=== PATIENT | female | born 1950 | race Asian ===

== ENCOUNTER 2016-12-05 22:10 | Inpatient (IN) | payer OTHER, MEDICARE ==
[~2016-12-05] VITALS: Ht 160 cm; Wt 45.8 kg
[2016-12-05 22:10] VITALS: BP 126/52; PULSE 124; RESP 26; TEMP 97.7; O2SAT 82
--- NOTE | 2016-12-05 22:10 | NUR ---
Patient to ER bed 8 to gown for evaluation. Side rails up. Report given to Kasie PINEDO.
--- NOTE | 2016-12-05 22:11 | NUR ---
Pt. to ER brought in by EMS AA non verbal for respitory distress. as per EMS pt. has a Hx of cancer, felt weak since this evening. Family at bedside, states that pt. was doing alright before 1999, states that pt. was walking and verbal, on pure liquid diet, as per errol pt. became very weak, refusing to eat, drink or talk, acted very abnormal, "out of the ordinary" unwilling to participate in conversations so daughter called 911, on timber killer family at bedside
--- NOTE | 2016-12-05 22:15 | NUR ---
DR. ELIZABETH AT BEDSIDE EXAMINING THE PT.
[2016-12-05] MEDS ORDERED: NACL 0.9% 1,000 ML IV SCH (22:17)
[2016-12-05] MEDS ORDERED: LEVOFLOXACIN 500 MG/D5W 100 ML IV ONE (22:30)
--- NOTE | 2016-12-05 22:32 | NUR ---
X RAY AT BEDSIDE
--- NOTE | 2016-12-05 22:53 | NUR ---
# 20 gauge angiocath placed to la. Use of asceptic technique. Opsite placed over site. Blood return noted. Blood for lab drawn from site. Flushed with 10 cc of normal saline. No evidence of infiltration noted. Patient tolerated well.
[2016-12-05 23:33] LABS: PROTHROMBIN TIME 10.9 SECS (9.5-12.5)
--- NOTE | 2016-12-05 23:35 | NUR ---
Medication reconciliation - per family "no home meds"
[2016-12-05 23:46] LABS: CALCIUM 8.5 mg/dL (8.4-11.0); CREATININE 1.5 mg/dL (0.55-1.30); POTASSIUM 3.9 mmol/L (3.5-5.1)
[2016-12-05 23:48] LABS: MEAN CORPUSCULAR HEMOGLOBIN 25 pg (27-31); MEAN CORPUSCULAR HGB CONC 29 % (32-36); MEAN CORPUSCULAR VOLUME 88 fL (79.0-98.0); PLATELET COUNT (AUTO) 412 K/uL (130-430); RED BLOOD CELL COUNT(AUTO) 1.92 MIL/uL (4.2-6.2); RED CELL DISTRIBUTION WIDTH 21.9 % (9.0-15.0)
[2016-12-05 23:49] LABS: HEMOGLOBIN 4.8 g/dL (12.0-16.0)
[2016-12-05 23:50] LABS: HEMATOCRIT 16.9 % (36-48); WHITE BLOOD COUNT (AUTO) 29.5 K/uL (4.8-10.8)
[2016-12-05 23:51] LABS: ALBUMIN 2.6 g/dL (3.4-4.8); TOTAL BILIRUBIN 0.6 mg/dL (0.0-1.0); TOTAL PROTEIN, SERUM 5.9 g/dL (6.4-8.3)
[2016-12-06 01:10] LABS: ATYPICAL LYMPHOCYTES % 0 % (0-0); BAND % (MANUAL) 7 % (0-6); BASOPHILS % (MANUAL) 0 % (0-2); EOSINOPHILS % (MANUAL) 0 % (0-7); LYMPHOCYTES % (MANUAL) 16 % (20-46); METAMYELOCYTES % 4 % (0-0); MONOCYTES % (MANUAL) 2 % (0-11); MYELOCYTES % 2 % (0-0)
[2016-12-06] MEDS ORDERED: NACL 0.9% 1,000 ML IV SCH (01:15)
--- NOTE | 2016-12-06 01:15 | NUR ---
PT FAMILY MEMBER AGREED FOR DNR STATUS AND BEEN EXPLAINED BY DR ELIZABETH AND SIGNED AND WITNESSED BY 1 NURSE.
--- NOTE | 2016-12-06 01:20 | NUR ---
Patient will be admitted to care of DR CALIX. Admitted to TELEMETRY unit. Will go to room 113-B. Belongings list completed. Summary report printed. Report given to ANA ROSA Mandujano RN .
--- NOTE | 2016-12-06 01:25 | NUR ---
INFORMED ANA ROSA Mandujano RN TO INFORM DR CALIX TO CHANGE DIET TO FULL LIQUID THAT THE PT UNABLE TO SWALLOW SOLID FOOD.
--- NOTE | 2016-12-06 01:28 | NUR ---
ADMISSION NOTE Received patient from ER via luke, received report from eusebia PINEDO. Patient admitted with diagnosis of sepsis. Patient oriented to hospital routine, call light, toileting and safety-patient verbalized understanding.
--- NOTE | 2016-12-06 01:30 | NUR ---
INITIAL NOTES: PT IS AWAKE , ARABIC SPEAKING ; ON O2 6 L VIA OXYMIZER , SAT 93%; BP IS ON THE LOW SIDE ; PER REPORT MD IS AWARE ABOUT THE LACTIC ACID LEVEL AND WBC ; H/H IS LOW , WILL TRANSFUSE BLOOD ORDERED ; PT DENIED ANY PAIN ; ASSESSMENT DONE . Addendum: 12/06/16 at 0700 by Sujata Hatfield RN PT IS LETHARGIC, PALE .
[2016-12-06 01:39] VITALS: BP 94/48; PULSE 108; RESP 18; TEMP 97.7; O2SAT 93
--- NOTE | 2016-12-06 01:50 | NUR ---
BM : PT IS INCONTINENT WITH LOOSE BM WITH BLOOD ;PERICARE GIVEN ; LINEN AND RAJI CHANGED .
--- NOTE | 2016-12-06 02:10 | NUR ---
ROOM : PT MOVED TO ROOM 113 B ; PT IS INCONTINENT WITH LOOSE BM ; SPECIMEN COLLECTED FOR C DIFF PER PROTOCOL ; PT CLEANED ; LINEN GOWN AND RAJI CHANGED; PT IS ST ON THE TELEMONITOR; FAMILY AT BEDSIDE ; DNR IS SIGNED BY ER DOCTOR ; INFORMED PT AND FAMILY THE PLAN OF CARE .PTS RESPIRATION IS 24- 28 AT THIS TIME ; SAT 94% .
--- NOTE | 2016-12-06 02:40 | NUR ---
BLOOD : PER BLOOD BANK , BLOOD TRANSFUSION REQUEST FORM DIDNT RECEIVE FROM ER ; FORM COMPLETED AND SENT TO LAB
[2016-12-06 02:56] LABS: BLOOD GAS PH 7.151 (7.350-7.450)
[2016-12-06 03:00] LABS: ABG TOTAL HEMOGLOBIN 4.6 G/dL (12.0-18.0); BLOOD O2Hb% 95.7 % (94.0-97.0)
[2016-12-06] MEDS ORDERED: VANCOMYCIN HCL 1000 MG/VIAL IV ONE (03:00)
[2016-12-06] MEDS ORDERED: VANCOMYCIN HCL 750 MG in NS 250 ML IV ONE (03:00)
[2016-12-06 03:01] LABS: BLOOD GAS COHb% 1.6 % (0.5-1.5); BLOOD GAS HHB 0.6 % (0.0-6.0)
--- NOTE | 2016-12-06 03:50 | NUR ---
BLOOD TRANSFUSION : Consent signed by daughter to administration of blood. Blood has been type and crossmatched. Blood sent from blood bank. Information on unit of blood checked against patient wristband at bedside by two nurses. All information matches. Patient or responsible green party informed of potential complications associated with blood transfusion. Informed of possible transfusion reaction symptoms. Aware of need to notify nurse at once of itching, shortness of breath, flushing, feeling of impending doom, or other symptoms not previously present. Vital signs taken within 5 minutes prior to initiation of transfusion. RN will remain with patient for first 15 minutes of transfusion at which time vital signs will be re-assessed.
--- NOTE | 2016-12-06 04:05 | NUR ---
15 MIN AFTER : NO S/S OF ANY ADVERSE OR TRANSFUSION REACTION ; PT IS HAVING ANOTHER LOOSE BM WITH OLD BLOOD ; PT CLEANED LINEN RAJI , AND GOWN CHANGED ; PER Francisco BRUNNER FLEXISEAL INSERTED AND WILL CALL MD IN AM TO GET THE ORDER . ALSO PT IS A MOUTH BREATHER SO SHE IS DESATING TO 80S WHILE SHE IS SLEEPING ; CHANGED PT BACK TO NON REBREATHER MASK - SAT 100% ;WILL CONTINUE TO MONITOR. Addendum: 12/06/16 at 0444 by Sujata Hatfield RN CHECKED FLEXISEAL BULB TO MAKE SURE NO LEAKING , AFTER THAT APPLIED LUBRICANT AND INSERTED INTO THE RECTUM ; THEM INSERTED 45 CC OF NS ; BULB IS IN POSITION ; NO LEAKING NOTED AT THIS TIME. WILL CONTINUE TO MONITOR.
[2016-12-06 04:29] VITALS: BP 90/53; PULSE 71; RESP 20; TEMP 96.9; O2SAT 100
--- NOTE | 2016-12-06 04:44 | NUR ---
RN ROUNDS: FAMILY AT BEDSIDE , PT IS SLEEPING COMFORTABLY ; SINCE PTS BP AND H/H IS LOW TRANSFUSION RUNNING AT 150 CC/HR . WILL CONTINUE TO MONITOR.
--- NOTE | 2016-12-06 06:00 | NUR ---
1 ST UNIT BLOOD OVER : BLOOD 1 ST UNIT IS OVER , NO ALLERGIC OR TRANSFUSION REACTION NOTED .PT IS MORE COMFORTABLE .WILL CONTINUE TO MONITOR.
--- NOTE | 2016-12-06 06:20 | NUR ---
BLOOD TRANSFUSION 2ND UNIT : Consent signed by daughter , Blood has been type and crossmatched. Blood received from blood bank. Information on unit of blood checked against patient wristband at bedside by two nurses. All information matches. Patient or responsible alliance party informed of potential complications associated with blood transfusion. Informed of possible transfusion reaction symptoms. Aware of need to notify nurse at once of itching, shortness of breath, flushing, feeling of impending doom, or other symptoms not previously present. Vital signs taken within 5 minutes prior to initiation of transfusion. RN will remain with patient for first 15 minutes of transfusion at which time vital signs will be re-assessed.
--- NOTE | 2016-12-06 06:35 | NUR ---
15 MIN AFTER : NO S/S OF ANY ADVERSE OR TRANSFUSION REACTION NOTED ;NOTICED THAT FLEXISEAL IS LEAKING ;AND INCONTINENT WITH URINE TOO ; PT CLEANED ; LINEN AND GOWN CHANGED .WILL CONTINUE TO MONITOR.
[2016-12-06] MEDS ORDERED: [UNRECOGNIZED DRUG - REMARK] XX PRN (06:45)
--- NOTE | 2016-12-06 06:45 | NUR ---
CALLED BACK : DR CALIX CALLED BACK , INFORMED MD THAT PT IS HAVING LOOSE BM WITH BLOOD , EARLIER WAS DARK BUT NOW ITS MORE FRESH ; MD ORDERED TO DC ALL ANTICOAGULANTS;INFORMED MD THAT PT IS NOT ON ANY ANTICOAGULANTS .MD ORDERED DR HOLBROOK CONSULT,DR GARCÍA CONSULT , AND SHARDAAL
--- NOTE | 2016-12-06 07:06 | NUR ---
CLOSING NOTES: PT IS SLEEPING ON AND OFF; FLEXISEAL IS DRAINING STOOL WITH RED BLOOD ; ON O2 VIA NONREBREATHER MASK - SAT 100% AT THIS TIME TELE MONITOR RUNNING ST ; DAUGHTER AT BEDSIDE ;WILL CONTINUE TO MONITOR AND WILL ENDORSE TO NEXT SHIFT NURSE.
--- NOTE | 2016-12-06 07:20 | NUR ---
AM Rounds: Received pt sitting semi-fowlers in bed. No acute signs of distress noted. IV intact to LUE infusing blood at this time and intact to RUE infusing IV fluids. Pt is lethargic but easily arousable. Tachypnea noted, saturating well 99% on non-rebreather. Changed non-rebreather to oximizer at 6L/min, continued to saturating well 99%. Flexiseal in place, draining liquid, red stool. No other needs noted at this time. Daughter at bedside. Call light in reach. Fall precautions in place. Bed alarm on. Bed in lowest position. Pt does not attempt to get out of bed at this time. Family educated on need to call for assist prior to ambulating as she is very weak. No other needs noted at this time. Continue to monitor pt closely.
--- NOTE | 2016-12-06 07:57 | NUR ---
CONSULTS CONSULT #1: PULMONARY CONSULT Spoke with Ciara regarding request for consultation with Dr. Byrne ([phone]) for reason: low O2 saturations - GI bleed. Dr. Vu is currently on-call. CONSULT #2: GI CONSULT Spoke with Ciara regarding request for consultation with Dr. Frankel ([phone]) for reason: GI bleed. Dr. Reid is currently on-call.
[2016-12-06 08:30] VITALS: BP 103/51; PULSE 122; RESP 26; TEMP 96.8; O2SAT 99
[2016-12-06] MEDS ORDERED: MAGNESIUM SULFATE 50 ML IV PRN (09:15)
[2016-12-06] MEDS ORDERED: ONDANSETRON HCL 4 MG/2 ML VIAL IVP PRN (09:15)
[2016-12-06] MEDS ORDERED: PANTOPRAZOLE SODIUM 40 MG/VIAL (PROTONIX) IVP ONE (09:15)
[2016-12-06] MEDS ORDERED: ACETAMINOPHEN 325 MG TABLET PO PRN (09:15)
[2016-12-06] MEDS ORDERED: POTASSIUM CHLORIDE 10 MEQ TAB.PRT.SR PO PRN (09:15)
[2016-12-06] MEDS ORDERED: MORPHINE 2 MG/ML INJ. SYRINGE IVP PRN (09:15)
[2016-12-06] MEDS ORDERED: DOCUSATE SODIUM 100 MG CAPSULE PO PRN (09:15)
[2016-12-06] MEDS ORDERED: LORazepam 2 MG/ML VIAL IVP PRN (09:15)
[2016-12-06] MEDS: D5NS 1,000 ML IV SCH (09:26)
--- NOTE | 2016-12-06 09:27 | NUR ---
ID CONSULT Spoke with Emily regarding request for consultation with Dr. Gramajo ([phone]) for reason: sepsis.
--- NOTE | 2016-12-06 09:30 | NUR ---
RN Rounds: AM meds given per MD order. Pt tolerates well. Dr. Lockhart here to see patient, aware that she is SOB and that blood is infusing at this time. New orders noted. Dr. Bains here to see patient as well. Family at bedside. Call light in reach. Bed alarm on. Continue to monitor pt closely.
[2016-12-06 11:01] LABS: CREATININE 1.81 mg/dL (0.55-1.30); POTASSIUM 4.4 mmol/L (3.5-5.1)
[2016-12-06 11:06] LABS: ALBUMIN 1.9 g/dL (3.4-4.8); TOTAL BILIRUBIN 0.5 mg/dL (0.0-1.0); TOTAL PROTEIN, SERUM 4.1 g/dL (6.4-8.3)
[2016-12-06 11:10] LABS: HEMOGLOBIN 8.1 g/dL (12.0-16.0); MEAN CORPUSCULAR HEMOGLOBIN 29 pg (27-31); MEAN CORPUSCULAR HGB CONC 34 % (32-36); PLATELET COUNT (AUTO) 161 K/uL (130-430); RED CELL DISTRIBUTION WIDTH 16.4 % (9.0-15.0)
[2016-12-06 11:15] LABS: CALCIUM 6.6 mg/dL (8.4-11.0); MEAN CORPUSCULAR VOLUME 86 fL (79.0-98.0); WHITE BLOOD COUNT (AUTO) 33.6 K/uL (4.8-10.8)
--- NOTE | 2016-12-06 11:30 | NUR ---
Page MDs: Page Pito Porter and Nara for orders. Awaiting page back at this time. Pt cleaned and repositioned in bed. Call light in reach. Patient changed to 2L via NC. Pt tolerates well at this time 100% O2 sat. Continue to monitor.
[2016-12-06] MEDS: PIPERACILLIN/TAZO 2.25G/DEX-IS 50 ML IV SCH ×3 (12:00→23:44)
[2016-12-06 12:17] LABS: BAND % (MANUAL) 14 % (0-6); BASOPHILS % (MANUAL) 0 % (0-2); EOSINOPHILS % (MANUAL) 0 % (0-7); LYMPHOCYTES % (MANUAL) 4 % (20-46); MONOCYTES % (MANUAL) 1 % (0-11)
[2016-12-06 12:18] VITALS: BP 111/69; PULSE 85; RESP 16; TEMP 98.2; O2SAT 100
--- NOTE | 2016-12-06 12:59 | NUR ---
Second Page Dr. Sheldon: Second page Dr. Sheldon for critical value WBC. Awaiting page back at this time
--- NOTE | 2016-12-06 13:40 | NUR ---
Rounds: Pt resting comfortably in bed. No acute signs of distress noted. Call light in reach. No acute signs of respiratory distress noted. IV intact and infusing fluids well. Pt denies pain and remains arousable to name. Continue to monitor.
--- NOTE | 2016-12-06 13:41 | NUR ---
DC PLANNING: SPOKE W/ BONIFACIO- OF THE PATIENT AT BEDSIDE, HE IS REQUESTING PATIENT TO BE UNDER HOSPICE CARE, WHERE PATIENT WILL BE COMFORTABLE. HE DOES NOT WANT ANY INVASIVE PROCEDURES TO BE DONE TO HIS . ACCORDING TO HIM, HIS WANTS TO GO HOME. CALLED AND INFORMED DR. Kylee CALIX, HE ORDERED HOSPICE EVAL--[facility] TEL# [phone]. CALLED AND LEFT A VOICE MAIL MESSAGE TO YADI. Addendum: 12/06/16 at 1544 by Deann White RN [facility] CALLED, THEY WILL DO THE EVALUATION TOMORROW.
[2016-12-06 13:58] LABS: BILIRUBIN,URINE NEGATIVE (NEGATIVE); BLOOD, URINE 2+ (NEGATIVE); CLARITY/URINE CLOUDY (CLEAR); COLOR,URINE YELLOW (YELLOW); GLUCOSE,URINE TRACE (NEGATIVE); KETONES,URINE 1+ (NEGATIVE); LEUKOCYTE ESTERASE ,URINE NEGATIVE (NEGATIVE); NITRITE, URINE NEGATIVE (NEGATIVE); PH,URINE 5.5 (5.0-8.0); PROTEIN URINE 2+ (NEGATIVE); UROBILINOGEN,URINE 0.2 (0.2-1.0)
[2016-12-06 14:03] LABS: BACTERIA,URINE MANY /HPF (None Seen); MUCUS,URINE 1+ /LPF (None Seen)
--- NOTE | 2016-12-06 15:40 | NUR ---
Rounds: Pt sitting semi-fowlers in bed and sleeping. No acute signs of distress noted. IV intact to RUE and flushing well. Breathing even and unlabored on 2L via NC. Call light in reach. Bed alarm on, bed in lowest position. Continue to monitor.
--- NOTE | 2016-12-06 16:10 | NUR ---
Nutrition Update Dylan Scale 14 noted Pt was admitted for sepsis Diet: clear liquid, no red dye BMI: 17.9 kg/m2 RD to follow up per nutrition care standards.
[2016-12-06 16:18] VITALS: BP 115/68; PULSE 79; RESP 16; TEMP 98.9; O2SAT 100
--- NOTE | 2016-12-06 17:11 | NUR ---
Rounds: Pt sleeping in bed and breathing even and unlabored on 2L via NC. No acute signs of distress noted. Call light in reach. Continue to monitor pt closely.
--- NOTE | 2016-12-06 19:04 | NUR ---
Closing Note: Pt sitting semi-fowlers in bed. No acute signs of distress noted. IV intact to RUE with no redness or swelling noted to site. Call light in reach. Pt is sleeping, breathing even and unlabored on 2L via NC. Call light in reach. Family at bedside. Flexiseal draining well to gravity. Endorse plan of care to NOC RN.
[2016-12-06 19:35] VITALS: BP 119/61; PULSE 78; RESP 18; TEMP 98.7; O2SAT 100
--- NOTE | 2016-12-06 19:35 | NUR ---
Initial Notes Pt is A/Ox3, lethargic but easily arousable. Family is at beside. POC discussed with who verbalized understanding. No acute distress or sob noted, breathing is even and unlabored, with respirations at 18. VSS. Flexi seal in place, with dk red blood noted in collection bag. Pt is bedrest, pt re positioned with pillows for comfort. IV to left wrist and RFA #20g noted, and infusing well with D5NS@70ml/hr. Pt is on 2L N/C with O2 saturation at 99%. Safety precautions in place, side rails up x3, with bed in lowest, locked position, bed alarm on at all times, pt and family educated environmental air specialist light. All needs met at this time. Call light within reach. Will continue to monitor.
[2016-12-06] MEDS ORDERED: ZOLPIDEM TARTRATE 5 MG TABLET PO PRN (21:00)
[2016-12-06] MEDS ORDERED: VANCOMYCIN HCL 500 MG in NS 100 ML IV SCH (21:00)
--- NOTE | 2016-12-06 22:30 | NUR ---
Rounds Pt is sleeping with no acute distress or sob noted. Family remains with pt. Will continue to monitor. Call light in reach.
[2016-12-07 00:04] VITALS: BP 100/45; PULSE 79; RESP 17; TEMP 97; O2SAT 99
--- NOTE | 2016-12-07 01:29 | NUR ---
Rounds Pt is sleeping well at this time with no acute distress or sob noted. Breathing is even and unlabored, respirations at 18. IV fluids infusing well. remains with pt at bedside. All needs met at this time. Call light in hand. Will continue to monitor.
[2016-12-07] MEDS: D5NS 1,000 ML IV SCH ×2 (01:31→14:17)
--- NOTE | 2016-12-07 04:05 | NUR ---
Rounds Pt is resting comfortably in bed at this time. No acute distress or sob noted. remains with pt at bedside. Call light within reach. Will continue to monitor.
[2016-12-07 04:17] VITALS: BP 115/56; PULSE 71; RESP 18; TEMP 98.1; O2SAT 99
[2016-12-07] MEDS: PIPERACILLIN/TAZO 2.25G/DEX-IS 50 ML IV SCH ×4 (06:07→23:29)
--- NOTE | 2016-12-07 07:03 | NUR ---
Closing Notes Pt is sleeping comfortably in bed at this time. Family remains with pt at bedside. VSS. IV intact. All needs met throughout shift. Will endorse care to am nurse. Call light in hand.
--- NOTE | 2016-12-07 07:50 | NUR ---
AM Rounds: Pt laying flat in bed. No acute signs of distress noted. IV intact to LUE and RUE with no redness or swelling noted to site. No SOB or respiratory distress noted. Flexiseal in place with dark brown output noted. No acute signs of bleeding noted. Call light in reach. Bed alarm on. Side rails x3. Bed in lowest position. Family at bedside. Continue to monitor.
[2016-12-07 07:56] LABS: MEAN CORPUSCULAR HEMOGLOBIN 30 pg (27-31); MEAN CORPUSCULAR HGB CONC 34 % (32-36); MEAN CORPUSCULAR VOLUME 88 fL (79.0-98.0); PLATELET COUNT (AUTO) 140 K/uL (130-430); WHITE BLOOD COUNT (AUTO) 23.7 K/uL (4.8-10.8)
[2016-12-07 07:58] LABS: RED BLOOD CELL COUNT(AUTO) 1.83 MIL/uL (4.2-6.2)
--- NOTE | 2016-12-07 08:09 | NUR ---
CALLED [facility], RE: CRITICAL LABS. SPOKE TO CONI
[2016-12-07] MEDS: PANTOPRAZOLE SODIUM 40 MG/VIAL (PROTONIX) IVP SCH (08:23)
[2016-12-07 08:35] VITALS: BP 97/46; PULSE 69; RESP 16; TEMP 97.7; O2SAT 100
[2016-12-07 08:41] LABS: BASOPHILS % (MANUAL) 0 % (0-2); EOSINOPHILS % (MANUAL) 0 % (0-7); LYMPHOCYTES % (MANUAL) 5 % (20-46); MONOCYTES % (MANUAL) 3 % (0-11)
[2016-12-07 08:44] LABS: ALBUMIN 1.5 g/dL (3.4-4.8); CREATININE 1.92 mg/dL (0.55-1.30); POTASSIUM 3.1 mmol/L (3.5-5.1); TOTAL BILIRUBIN 0.3 mg/dL (0.0-1.0); TOTAL PROTEIN, SERUM 3.7 g/dL (6.4-8.3)
[2016-12-07 08:50] LABS: HEMOGLOBIN 5.4 g/dL (12.0-16.0)
--- NOTE | 2016-12-07 09:24 | NUR ---
RN Rounds: AM meds given per MD order. No acute sign of distress noted. Pt continued to be lethargic but easily arousable. Able to state name and birthday. at bedside. Call light in reach. Fall precautions in place. Bed alarm on and bed in lowest position. Pt's verbalizes understanding of need to call for assist prior to ambulating. Continue to monitor.
[2016-12-07] MEDS ORDERED: POTASSIUM CHLORIDE 20 MEQ/PKT PACKET PO PRN (09:30)
--- NOTE | 2016-12-07 11:40 | NUR ---
Rounds: Pt sitting semi-fowlers in bed. No acute signs of distress noted. IV intact and infusing fluids well at this time. Pt remains lethargic but is talking to family at this time. Dr. Reid here to see patient, new orders noted.
[2016-12-07 12:14] VITALS: BP 116/60; PULSE 68; RESP 16; TEMP 98.9; O2SAT 100
--- NOTE | 2016-12-07 13:03 | NUR ---
DC PLANNING: [facility] RN WILL BE HERE AT 1330 PM, PACKET AT THE NURSE'S STATION.
--- NOTE | 2016-12-07 13:20 | NUR ---
Rounds: Pt laying flat in bed, no acute signs of distress noted. Pt breathing even and unlabored on room air. Call light in reach. Family at bedside. Continue to monitor.
--- NOTE | 2016-12-07 15:33 | NUR ---
Rounds: Pt sitting semi-fowlers in bed. No acute signs of distress noted. Hospice at bedside to discuss plan of care with patient's family. Rectal tube in place. Pt cleaned and repositioned in bed. Call light in reach. Continue to monitor.
--- NOTE | 2016-12-07 16:09 | NUR ---
DC PLANNING Received call from unit that pt's family would like to discuss hospice vs home health. Spoke w dtr Nereida, manjula Robbins, & other dtr outside of pt's room. Stated spoke w [facility] & not decided yet on Hospice. Want more choices & want Hospice vs home health explained. Gave list of Hospice companies as well as list of home health companies. Explained the difference between the two. State that they have meeting to discuss plan w Dr Lockhart again tomorrow morning, then they will decide on which plan they decide. They do not want a 2nd Hospice company yet until speak w Dr Lockhart. Would like to speak w Director Hematology tomorrow. Left note for Director Hematology to f/u w family tomorrow.
[2016-12-07 16:51] VITALS: BP 104/54; PULSE 69; RESP 16; TEMP 98.2; O2SAT 100
--- NOTE | 2016-12-07 17:35 | NUR ---
BT INITIATION: Consent signed per agreeing to administration of blood. Blood has been type and crossmatched. Blood sent from blood bank. Information on unit of blood checked against patient wristband at bedside by two nurses. All information matches. Patient or responsible alliance party informed of potential complications associated with blood transfusion. Informed of possible transfusion reaction symptoms. Aware of need to notify nurse at once of itching, shortness of breath, flushing, feeling of impending doom, or other symptoms not previously present. Vital signs taken within 5 minutes prior to initiation of transfusion. RN will remain with patient for first 15 minutes of transfusion at which time vital signs will be re-assessed.
--- NOTE | 2016-12-07 17:50 | NUR ---
Blood Re-Check 15 min: Pt tolerates transfusion well. No acute signs of reaction noted. Continue to monitor.
--- NOTE | 2016-12-07 18:25 | NUR ---
Closing Note: Blood transfusion in progress. No acute signs of distress noted. Rectal tube in place draining dark green liquid stool. No acute signs of distress noted. Pt remains lethargic but arousable. Endorse plan of care to NOC RN.
[2016-12-07 19:40] VITALS: BP 97/54; PULSE 70; RESP 18; TEMP 97; O2SAT 99
--- NOTE | 2016-12-07 19:40 | NUR ---
Initial Notes Pt is A/Ox3, lethargic but easily arousable. Family is at beside. POC discussed with who verbalized understanding. No acute distress or sob noted, breathing is even and unlabored, with respirations at 18. VSS. Flexi seal in place, with dk red blood noted in collection bag. Pt is bedrest, pt re positioned with pillows for comfort. IV to left wrist and RFA #20g noted, and infusing well with D5NS@70ml/hr. 1 unit of blood currently infusing, will monitor. Safety precautions in place, side rails up x3, with bed in lowest, locked position, bed alarm on at all times, pt and family educated traditional maori health practitioner light. All needs met at this time. Call light within reach. Will continue to monitor.
--- NOTE | 2016-12-07 20:35 | NUR ---
1st unit of blood done First unit of blood transfused with no adverse reactions noted. Vital signs stable: Temp 96.8, Pulse 66, Respirations 18, B/P 95/48. All needs met at this time. Call light in reach. Will continue to monitor.
--- NOTE | 2016-12-07 22:05 | NUR ---
15 Minutes post BT initiation Remained with pt for 15 minutes, vital signs stable: temp 97.0, Pulse 65, RR 18, O2 saturation 100% on room air, Blood pressure 103/49. No acute distress or s/s of adverse reactions noted. remains with pt at bedside. BT infusing well with no s/s of infiltration. Call light in reach. Will continue to monitor.
[2016-12-08] VITALS: BP 96/52; PULSE 78; RESP 17; TEMP 98.2; O2SAT 99
--- NOTE | 2016-12-08 00:47 | NUR ---
Second unit of blood complete Second unit of blood infused at this time with no adverse reactions noted. Pt is sleeping, easily arousable. at bedside. VSS. IV intact. Call light in reach. Will continue to monitor.
--- NOTE | 2016-12-08 02:30 | NUR ---
Rounds Pt is sleeping comfortably in bed. No acute distress or sob noted. remains with pt at bedside. All needs met. Call light in hand. Will continue to monitor.
[2016-12-08 04:25] VITALS: BP 98/58; PULSE 72; RESP 16; TEMP 98.3; O2SAT 99
[2016-12-08] MEDS: D5NS 1,000 ML IV SCH ×2 (05:15→10:32)
[2016-12-08] MEDS: PIPERACILLIN/TAZO 2.25G/DEX-IS 50 ML IV SCH ×3 (05:16→18:31)
[2016-12-08 07:40] LABS: BASOPHILS % (AUTO) 0.1 % (0.0-2.0); EOSINOPHILS % (AUTO) 0.2 % (0.0-4.0); LYMPHOCYTES # (AUTO) 0.6 K/uL (1.0-5.5); LYMPHOCYTES % (AUTO) 3.5 % (20.5-51.5); MEAN CORPUSCULAR HEMOGLOBIN 29 pg (27-31); MEAN CORPUSCULAR HGB CONC 33 % (32-36); MEAN CORPUSCULAR VOLUME 86 fL (79.0-98.0); MONOCYTES # (AUTO) 0.9 K/uL (0.0-1.0); MONOCYTES % (AUTO) 4.9 % (1.7-9.3); NEUTROPHILS # (AUTO) 16.2 K/uL (1.8-7.7); NEUTROPHILS % (AUTO) 91.3 % (40.0-70.0); PLATELET COUNT (AUTO) 100 K/uL (130-430); RED BLOOD CELL COUNT(AUTO) 3.15 MIL/uL (4.2-6.2); RED CELL DISTRIBUTION WIDTH 14.2 % (9.0-15.0)
[2016-12-08 07:46] LABS: WHITE BLOOD COUNT (AUTO) 17.7 K/uL (4.8-10.8)
--- NOTE | 2016-12-08 07:47 | NUR ---
AM ROUNDS Pt sleeping...Easily wakes with verbal stimuli...IVF infusing well to RFA...HL to LW flushes well...Flexi-seal in place with blackish-brownish output... at bedside assisting pt with needs...Call light/phone w/in reach...Will cont to monitor
[2016-12-08 07:49] LABS: ALBUMIN 1.6 g/dL (3.4-4.8); CREATININE 1.46 mg/dL (0.55-1.30); POTASSIUM 3.2 mmol/L (3.5-5.1); TOTAL BILIRUBIN 0.3 mg/dL (0.0-1.0); TOTAL PROTEIN, SERUM 4.1 g/dL (6.4-8.3)
[2016-12-08 08:06] LABS: CALCIUM 6.9 mg/dL (8.4-11.0)
[2016-12-08] MEDS: PANTOPRAZOLE SODIUM 40 MG/VIAL (PROTONIX) IVP SCH (08:23)
[2016-12-08] MEDS ORDERED: POTASSIUM CHLORIDE 40 MEQ, LIDOCAINE JECT 2% PF 100 MG 50 MG in NS 250 ML IV ONE (09:00)
[2016-12-08 09:02] VITALS: BP 116/58; PULSE 60; RESP 18; TEMP 98.4; O2SAT 97
--- NOTE | 2016-12-08 11:00 | NUR ---
ROUNDS PT STABLE..NO CHANGES...FAMILY AT BEDSIDE..WILL CONT TO MONITOR
--- NOTE | 2016-12-08 11:15 | NUR ---
CHIARA-CARE DONE PT INCONTINENT OF URINE...PT CLEANED, FLEXI-SEAL CLEANED...CHIARA-CARE DONE...PT TOLERATED WELL....WILL CONT TO MONITOR
[2016-12-08 12:33] VITALS: BP 108/63; PULSE 64; RESP 17; TEMP 97.1; O2SAT 98
--- NOTE | 2016-12-08 14:00 | NUR ---
INCONTINENT OF URINE CHIARA-CARE DONE...MOISTURE BARRIER CREAM APPLIED...WILL CONT TO MONITOR
[2016-12-08 14:20] VITALS: Ht 160 cm; Wt 45.8 kg
--- NOTE | 2016-12-08 15:37 | NUR ---
ROUNDS PT STABLE...NO CHANGES...LYING IN BED...RESTING...FAMILY REMAINS AT BEDSIDE...WILL CONT TO MONITOR
[2016-12-08 17:26] VITALS: BP 112/55; PULSE 63; RESP 18; TEMP 96.2; O2SAT 97
--- NOTE | 2016-12-08 18:45 | NUR ---
ROUNDS PT REMAINS STABLE...ALL NEEDS ATTENDED TOO...FAMILY REMAINS AT BEDSIDE...FLEXI-SEAL IN PLACE...IVF INFUSING WELL...WILL CONT TO MONIOTR
[2016-12-08 19:35] VITALS: BP 116/60; PULSE 64; RESP 18; TEMP 97; O2SAT 97
--- NOTE | 2016-12-08 19:35 | NUR ---
Initial Notes Pt is A/Ox3, awake, alert at this time. Family is at beside. POC discussed with who verbalized understanding. No acute distress or sob noted, breathing is even and unlabored, with respirations at 18. VSS. Flexi seal in place, with dk red blood noted in collection bag. Pt is bedrest, pt re positioned with pillows for comfort. IV to left wrist and RFA #20g noted, and infusing well with D5NS@70ml/hr. Safety precautions in place, side rails up x3, with bed in lowest, locked position, bed alarm on at all times, pt and family educated paper cone machine operator light. All needs met at this time. Call light within reach. Will continue to monitor.
--- NOTE | 2016-12-08 22:24 | NUR ---
Hygiene care/Rounds Pt given total bed bath at this time with skin care. Z guard applied to brandie area and buttocks for protection. Flexi seal in place, and draining properly. Pt re positioned with pillows for comfort. All needs met. Pt resting comfortably with no acute distress noted. Call light in reach. Will continue to monitor.
--- NOTE | 2016-12-09 00:15 | NUR ---
PATIENT RESTING: Patient resting quietly. No acute distress noted. Vital signs within normal range. remains with pt at bedside. All needs met at this time. Call light in reach. Will continue to monitor.
[2016-12-09 00:16] VITALS: BP 98/47; PULSE 67; RESP 15; TEMP 98.8; O2SAT 95
[2016-12-09] MEDS: PIPERACILLIN/TAZO 2.25G/DEX-IS 50 ML IV SCH ×2 (00:25→05:39)
[2016-12-09 04:19] VITALS: BP 116/64; PULSE 60; RESP 15; TEMP 98.1; O2SAT 97
[2016-12-09] MEDS: D5NS 1,000 ML IV SCH ×2 (06:37→21:14)
--- NOTE | 2016-12-09 06:46 | NUR ---
Closing Notes Pt is sleeping comfortably in bed at this time. Family remains with pt at bedside. New IV bag hung and new flexi seal bag placed. Total of 400cc of dk black stool removed from flexi seal. VSS. IV intact. All needs met throughout shift. Will endorse care to am nurse. Call light in hand.
[2016-12-09 07:55] LABS: EOSINOPHILS # (AUTO) 0.1 K/uL (0.0-0.4); EOSINOPHILS % (AUTO) 0.6 % (0.0-4.0); HEMATOCRIT 28.7 % (36-48); HEMOGLOBIN 9.6 g/dL (12.0-16.0); LYMPHOCYTES # (AUTO) 0.6 K/uL (1.0-5.5); LYMPHOCYTES % (AUTO) 4.8 % (20.5-51.5); MEAN CORPUSCULAR HEMOGLOBIN 29 pg (27-31); MEAN CORPUSCULAR HGB CONC 33 % (32-36); MEAN CORPUSCULAR VOLUME 86 fL (79.0-98.0); MONOCYTES # (AUTO) 0.6 K/uL (0.0-1.0); MONOCYTES % (AUTO) 5.3 % (1.7-9.3); NEUTROPHILS % (AUTO) 89.3 % (40.0-70.0); PLATELET COUNT (AUTO) 137 K/uL (130-430); RED BLOOD CELL COUNT(AUTO) 3.35 MIL/uL (4.2-6.2); RED CELL DISTRIBUTION WIDTH 14.7 % (9.0-15.0)
[2016-12-09 08:00] VITALS: BP 127/65; PULSE 61; RESP 18; TEMP 96.9; O2SAT 99
--- NOTE | 2016-12-09 08:00 | NUR ---
Initial note A/O x 4, no SOB, no chest pain, denied pain. Skin warm to touch, IV on R FA and L wrist, both patent and free of infection or infiltration. Rectal tube in place with black stool noted. Clear sounds clear, positive bowel sounds all quadrants. No edema, +2 radial and pedal pulses. Perineum care provided. Family preferred patient to eat home food, family is aware that patient is taking liquid and need to elevated HOB high when assisting patient eating. Call light within reach, education provided, will continue to monitor patient.
[2016-12-09 08:01] LABS: WHITE BLOOD COUNT (AUTO) 12.3 K/uL (4.8-10.8)
[2016-12-09 08:21] LABS: CALCIUM 7.3 mg/dL (8.4-11.0); CREATININE 1.2 mg/dL (0.55-1.30); POTASSIUM 3.4 mmol/L (3.5-5.1)
[2016-12-09] MEDS: PANTOPRAZOLE SODIUM 40 MG/VIAL (PROTONIX) IVP SCH (09:17)
--- NOTE | 2016-12-09 10:00 | NUR ---
Round A/O x 4, no SOB, no chest pain, denied pain. Tired looking. Skin warm to touch, IV on R FA and L wrist, both patent and free of infection or infiltration. Rectal tube in place with black stool noted. Clear sounds clear, positive bowel sounds all quadrants. No edema, +2 radial and pedal pulses. Perineum care provided. Family preferred patient to eat home food, family is aware that patient is taking liquid and need to elevated HOB high when assisting patient eating. Call light within reach, education provided, will continue to monitor patient.
[2016-12-09] MEDS: cefTRIAXone 1 GM in D5W 50 ML IV SCH (11:44)
--- NOTE | 2016-12-09 12:00 | NUR ---
Round A/O x 4, no SOB, no chest pain, denied pain. Sleep/rest in bed. Skin warm to touch, IV on R FA and L wrist, both patent and free of infection or infiltration. Rectal tube in place with black stool noted. Clear sounds clear, positive bowel sounds all quadrants. No edema, +2 radial and pedal pulses. Family at bedside. Family preferred patient to eat home food, family is aware that patient is taking liquid and need to elevated HOB high when assisting patient eating. Call light within reach, education provided, will continue to monitor patient.
[2016-12-09 12:36] VITALS: BP 130/74; PULSE 59; RESP 16; TEMP 97.9; O2SAT 98
--- NOTE | 2016-12-09 14:00 | NUR ---
Round A/O x 4, no SOB, no chest pain, denied pain. Sleep/rest in bed. Skin warm to touch, IV on R FA and L wrist, both patent and free of infection or infiltration. Rectal tube in place. Clear sounds clear, positive bowel sounds all quadrants. No edema, +2 radial and pedal pulses. Family at bedside. Call light within reach, education provided, will continue to monitor patient.
[2016-12-09 15:33] VITALS: BP 134/63; PULSE 59; RESP 19; TEMP 98.7; O2SAT 97
--- NOTE | 2016-12-09 16:00 | NUR ---
Round A/O x 4, no SOB, no chest pain, denied pain. Sleep/rest in bed. Easy to be awaken. Skin warm to touch, IV on R FA and L wrist, both patent and free of infection or infiltration. Rectal tube in place. Clear sounds clear, positive bowel sounds all quadrants. No edema, +2 radial and pedal pulses. Family at bedside. Call light within reach, education provided, will continue to monitor patient.
--- NOTE | 2016-12-09 18:00 | NUR ---
Closing note A/O x 4, no SOB, no chest pain, denied pain. Sitting on the bed reading ipad. Skin warm to touch, IV on R FA and L wrist, both patent and free of infection or infiltration. Rectal tube in place. Clear sounds clear, positive bowel sounds all quadrants. No edema, +2 radial and pedal pulses. Family at bedside. Call light within reach, education provided, will continue to monitor patient.
[2016-12-09 20:00] VITALS: BP 133/75; PULSE 64; RESP 18; TEMP 98; O2SAT 97
--- NOTE | 2016-12-09 20:00 | NUR ---
Initial Notes Received patient resting in bed, alert, awake, oriented, family at bedside. Patient denies any acute distress or pain at this time. Breathing even and unlabored on room air. Vital signs stable. IV sites patent/clean/dry. Rectal tube in place. Incontinence care provided. Patient repositioned for comfort. Educated patient and family on use of call light for assistance and fall precautions, both verbalized understanding. Call light in hand, fall precautions in place. Will continue to monitor.
--- NOTE | 2016-12-09 22:00 | NUR ---
Rounds Patient resting in bed with eyes closed, easily aroused upon nurse entering room, family at bedside. Patient denies any acute distress or pain at this time. Breathing even and unlabored. IV site patent/clean/dry. Needs addressed, call light in hand, will continue to monitor.
--- NOTE | 2016-12-10 | NUR ---
Rounds Patient resting in bed with eyes closed. No acute distress noted, breathing even and unlabored. Call light in hand, will continue to monitor.
[2016-12-10 00:31] VITALS: BP 135/69; PULSE 66; RESP 20; TEMP 97.5; O2SAT 98
--- NOTE | 2016-12-10 02:00 | NUR ---
Rounds Patient resting comfortably in bed with eyes closed, easily aroused upon nurse entering room, family at bedside. Patient denies any acute distress or pain at this time. Breathing even and unlabored. IV site patent/clean/dry. Needs addressed. Call light in hand, fall precautions in place. Will continue to monitor.
--- NOTE | 2016-12-10 04:00 | NUR ---
Rounds Patient resting comfortably in bed with eyes closed, family at bedside. Patient in no acute distress, breathing even and unlabored. IV site patent/clean/dry. Flexiseal in place. Call light in hand, will continue to monitor.
[2016-12-10 04:22] VITALS: BP 152/72; PULSE 64; RESP 15; TEMP 98.2; O2SAT 97
--- NOTE | 2016-12-10 06:32 | NUR ---
Closing Notes Patient resting in bed with eyes closed, easily aroused, at bedside. Patient denies any acute distress or pain at this time. Breathing even and unlabored on room air. IV site patent/clean/dry, no S/S infection/infiltration noted. Rectal tube in place. draining to gravity. Needs addressed throughout shift. Call light in hand, fall precautions in place. Will continue to monitor for changes and safety, and endorse all patient care/needs to oncoming nurse.
[2016-12-10 07:57] LABS: BASOPHILS % (AUTO) 0.2 % (0.0-2.0); EOSINOPHILS # (AUTO) 0.1 K/uL (0.0-0.4); EOSINOPHILS % (AUTO) 1.2 % (0.0-4.0); HEMATOCRIT 34.2 % (36-48); HEMOGLOBIN 11.2 g/dL (12.0-16.0); LYMPHOCYTES # (AUTO) 0.5 K/uL (1.0-5.5); LYMPHOCYTES % (AUTO) 4.9 % (20.5-51.5); MEAN CORPUSCULAR HEMOGLOBIN 28 pg (27-31); MEAN CORPUSCULAR HGB CONC 33 % (32-36); MEAN CORPUSCULAR VOLUME 87 fL (79.0-98.0); MONOCYTES # (AUTO) 0.6 K/uL (0.0-1.0); MONOCYTES % (AUTO) 5.9 % (1.7-9.3); NEUTROPHILS % (AUTO) 87.8 % (40.0-70.0); PLATELET COUNT (AUTO) 183 K/uL (130-430); RED BLOOD CELL COUNT(AUTO) 3.95 MIL/uL (4.2-6.2); RED CELL DISTRIBUTION WIDTH 15.2 % (9.0-15.0); WHITE BLOOD COUNT (AUTO) 10.2 K/uL (4.8-10.8)
--- NOTE | 2016-12-10 08:00 | NUR ---
OPENING NOTE: RECEIVED REPORT FROM NIGHT NURSE. PATIENT IS RESTING COMFORTABLY IN BED. NO S/S OF DISTRESS OR SOB. PATIENT IS ALERT AND ORIENTED. FAMILY IS AT BEDSIDE. VITAL SIGNS WNL, ASSESSMENT COMPLETE. FLEXI-SEAL IN PLACE. IV IS PATENT AND INFUSING. CALL LIGHT IN REACH, BED IN LOWEST POSITION, AND WILL CONTINUE TO MONITOR.
[2016-12-10 08:21] LABS: CALCIUM 7.4 mg/dL (8.4-11.0); CREATININE 1.03 mg/dL (0.55-1.30); POTASSIUM 3.4 mmol/L (3.5-5.1)
[2016-12-10 08:46] VITALS: BP 150/75; PULSE 64; RESP 17; TEMP 97.9; O2SAT 97
[2016-12-10] MEDS: PANTOPRAZOLE SODIUM 40 MG/VIAL (PROTONIX) IVP SCH (09:51)
--- NOTE | 2016-12-10 10:17 | NUR ---
NOTE: PATIENT IS RESTING COMFORTABLY IN BED. NO S/S OF DISTRESS OR SOB. PATIENT IS SLEEPING. FAMILY AT BEDSIDE. CALL LIGHT IN REACH, BED IN LOWEST POSITION, AND WILL CONTINUE TO MONITOR.
[2016-12-10 10:41] LABS: CALCIUM 6.9 mg/dL (8.4-11.0)
--- NOTE | 2016-12-10 11:01 | NUR ---
DISCHARGE PLANNING DC planning order for hospital bed. Faxed DME order to [facility] [phone]. Will follow up. Addendum: 12/10/16 at 1109 by Gricelda MONTGOMERY Faxed home health order to [facility] [phone], pending RX order to forward to [facility] to arrange IV medication. Will follow up. Addendum: 12/10/16 at 1452 by Gricelda MONTGOMERY Faxed IV medication order to [facility]. Spoke with Jacquie [phone] Ext:[phone] who will call patient/family to make them aware of co-pay and to make delivery arrangements. Jacquie was made aware of home health arranged and was given contact number. Returned call to Akiko in intake dept at [facility] who was updated. Addendum: 12/10/16 at 1557 by Gricelda Villarreal DP Spoke with Jacquie at [facility] [phone] Ext:[phone] Provided Jacquie with February, ph [phone] and [phone] Addendum: 12/10/16 at 1600 by Gricelda Villarreal DP Pending confirmation from Jacquie from [facility] delivery arrangements have been made for patient discharge. [facility] will continue to follow up and notify nursing staff. Addendum: 12/10/16 at 1626 by Gricelda Villarreal DP KHRIS Dukes made aware Jacquie from [facility] confirmed medication scheduled to deliver to patient home [facility] will have nursing staff scheduled to see patient in AM.
[2016-12-10] MEDS: cefTRIAXone 1 GM in D5W 50 ML IV SCH (11:07)
[2016-12-10 12:00] VITALS: BP 146/75; PULSE 63; RESP 17; TEMP 98; O2SAT 97
--- NOTE | 2016-12-10 12:00 | NUR ---
NOTE: PATIENT IS RESTING COMFORTABLY IN BED. NO S.S OF DISTRESS OR SOB. PATIENT IS ALERT AND ORIENTED. FAMILY AT BEDSIDE. CALL LIGHT IN REACH, BED IN LOWEST POSITION, AND WILL CONTINUE TO MONITOR.
--- NOTE | 2016-12-10 14:00 | NUR ---
NOTE: PATIENT IS RESTING COMFORTABLY IN BED. NO S.S OF DISTRESS OR SOB. PATIENT IS ALERT AND ORIENTED. FAMILY AT BEDSIDE AND WAITING FOR DISCHARGE. CALL LIGHT IN REACH, BED IN LOWEST POSITION, AND WILL CONTINUE TO MONITOR.
[2016-12-10 14:36] VITALS: BP 146/75; PULSE 63; RESP 17; TEMP 98; O2SAT 97
[2016-12-10 16:00] VITALS: BP 148/74; PULSE 59; RESP 21; TEMP 98; O2SAT 98
--- NOTE | 2016-12-10 16:00 | NUR ---
NOTE: PATIENT IS RESTING COMFORTABLY IN BED. NO S.S OF DISTRESS OR SOB. PATIENT IS ALERT AND ORIENTED, ABLE TO EXPRESS NEEDS, AND ASK FOR ASSISTANCE. CALL LIGHT IN REACH, BED IN LOWEST POSITION, AND WILL CONTINUE TO MONITOR.
--- NOTE | 2016-12-10 16:39 | NUR ---
Discharge Planning PROCUREMENT MANAGER assisted DC [employer] Instructor Sweta in calling [facility], p [phone] f [phone], as to if they received the order for a hospital bed. PROCUREMENT MANAGER phoned ten times between 2pm and 4:30 pm. The line was busy. PROCUREMENT MANAGER sent a fax requesting a call.
--- NOTE | 2016-12-10 18:08 | NUR ---
D/C Patient Patient given medication reconciliation form and D/C instructions. Exit Care provided. Patient verbalized understanding. MD discussed with patient the results and treatment provided. Ambulatory with steady gait for discharge to home. Patient in stable condition, ID band removed. Patient educated on pain management. All belongings sent with patient.
--- NOTE | 2016-12-11 11:46 | NUR ---
DISCHARGE PLANNING spoke with Megan in intake dept regarding DME order for Hospital bed. Megan requested to re-fax. Confirmed fax number and re-faxed order to [phone]. Megan verified fax was received and will verify patient insurance and eligibility. [facility] will continue to follow up. Addendum: 12/15/16 at 1057 by Gricelda Villarreal DP Called [employer] [phone] spoke with Megan who will return call to [facility] will update. Will follow up.
--- NOTE | 2016-12-12 15:39 | NUR ---
Discharge Follow Up Phone Call [employer] phoned patient, , on 12/11/16 and left a voicemail message. [employer] phoned [facility], , requesting a call back verifying that they began services. Today [employer] left another voicemail for patient. [employer] phoned [facility] and spoke with Ramona who verified they began services on 12/11/16m. LOUIS will attempt one more follow up call next week. Addendum: 12/15/16 at 1446 by Teresa Salas LCSW [employer] phoned patient and left a voicemail message with offer of assistance and Social Service contact information. No further calls will be attempted.
== END 2016-12-10 17:50 | disposition home health service (06) | DRG 871 ==
LOC: SED 22:10 → STU 12-06 01:02 → SMU 12-10 10:03
PROVIDERS: ADMIT General Practice; ATTEND General Practice
PROC: 30233N1 Transfusion of Nonautologous Red Blood Cells into Peripheral Vein, Percutaneous Approach (ICD-10-PCS; principal; 2016-12-06)
DX: A41.9 Sepsis, unspecified organism (principal); E43 Unspecified severe protein-calorie malnutrition; J96.00 Acute respiratory failure, unspecified whether with hypoxia or hypercapnia; J69.0 Pneumonitis due to inhalation of food and vomit; R65.21 Severe sepsis with septic shock; E87.2 Acidosis; N39.0 Urinary tract infection, site not specified; K92.2 Gastrointestinal hemorrhage, unspecified; C15.9 Malignant neoplasm of esophagus, unspecified; Z68.1 Body mass index [BMI] 19.9 or less, adult; Z66 Do not resuscitate; Z51.5 Encounter for palliative care; D63.0 Anemia in neoplastic disease
CPT/HCPCS: 36415; 36600; 71010; 80048; 80053; 81000-TC; 82550-TC; 82803-TC; 83605; 83735-TC; 83874; 83880; 84484; 85007; 85025; 85027; 85379; 85610-TC; 85730-TC; 86886; 86900; 86901; 86920; 87040-TC; 87045-TC; 87046; 87086; 87177; 87186-TC; 87230-TC; 89055; 93005; 96361; 96365; 99291; C9113; J0696; J1956; J2543; J3370; J3480; J7030; J7040; J7042; J7050; J7060; P9021

== ENCOUNTER 2016-12-27 15:46 | Inpatient (IN) | payer OTHER, MEDICARE ==
[~2016-12-27] VITALS: Ht 160 cm; Wt 52.2 kg
[2016-12-27 15:46] VITALS: BP 135/66; PULSE 60; RESP 19; TEMP 98.4; O2SAT 99
[~2016-12-27 15:46] MED LIST: CEFAZOLIN 1 GM IVPB PREMIX 50 ML IV ONE; KETOROLAC TROMETHAMINE 30 MG VIAL IVP ONE; PROPOFOL 200MG/ 20ML VIAL (DIPRIVAN) IV ONE; ROCURONIUM BROMIDE 10 MG/ML (ZEMURON) IV ONE; SEVOFLURANE 15 MIN GAS INH ONE
--- NOTE | 2016-12-27 15:46 | NUR ---
BROUGHT BACK TO BED #6 VIA WHEELCHAIR, PLACED IN BED AND TRIAGED. DAUGHTER AT BEDSIDE. REPORT GIVEN TO ARNOLDO
--- NOTE | 2016-12-27 15:52 | NUR ---
Pt brought in by family in stable condition. Per daughter, pt has not been able to keep any fluids down since Thursday. Pt has been generally weak and needs assistance w/ ambulating. Pt was dx with espohageal cancer in October and has been on a strict full liquid diet. Per daughter, pt has been vomiting since 929 this morning. Per daughter, pt was seen by PMD on Thursday was rx PPN w/ home health nurse but unable to get further authorization from insurance over the weekend. Placed the pt on radiographer cardiac catheterization. -sob -chest pain. No acute distress noted at this time, will continue to monitor
--- NOTE | 2016-12-27 16:00 | NUR ---
ER at bedside examining patient.
[2016-12-27] MEDS ORDERED: NACL 0.9% 1,000 ML IV ONE (16:11)
[2016-12-27 17:01] LABS: BASOPHILS % (AUTO) 0.7 % (0.0-2.0); EOSINOPHILS % (AUTO) 0.8 % (0.0-4.0); HEMOGLOBIN 9.1 g/dL (12.0-16.0); LYMPHOCYTES # (AUTO) 0.7 K/uL (1.0-5.5); LYMPHOCYTES % (AUTO) 14.1 % (20.5-51.5); MEAN CORPUSCULAR HEMOGLOBIN 27 pg (27-31); MEAN CORPUSCULAR HGB CONC 33 % (32-36); MEAN CORPUSCULAR VOLUME 84 fL (79.0-98.0); MONOCYTES # (AUTO) 0.5 K/uL (0.0-1.0); NEUTROPHILS # (AUTO) 3.8 K/uL (1.8-7.7); NEUTROPHILS % (AUTO) 75.4 % (40.0-70.0); PLATELET COUNT (AUTO) 279 K/uL (130-430); RED BLOOD CELL COUNT(AUTO) 3.34 MIL/uL (4.2-6.2); RED CELL DISTRIBUTION WIDTH 14.5 % (9.0-15.0)
[2016-12-27 17:09] LABS: INR 1.1 (0.8-1.2); PROTHROMBIN TIME 11.8 SECS (9.5-12.5)
[2016-12-27 17:12] LABS: CALCIUM 7.8 mg/dL (8.4-11.0); CREATININE 0.88 mg/dL (0.55-1.30)
[2016-12-27 17:18] LABS: ALBUMIN 2.4 g/dL (3.4-4.8); TOTAL BILIRUBIN 0.5 mg/dL (0.0-1.0); TOTAL PROTEIN, SERUM 5.2 g/dL (6.4-8.3)
[2016-12-27 17:19] LABS: POTASSIUM 2.3 mmol/L (3.5-5.1)
[2016-12-27] MEDS ORDERED: KCL 40mEq in D5/0.45NS 1000 mL 1,000 ML IV ONE (17:30)
[2016-12-27 17:55] LABS: BILIRUBIN,URINE NEGATIVE (NEGATIVE); CLARITY/URINE CLEAR (CLEAR); COLOR,URINE YELLOW (YELLOW); GLUCOSE,URINE NEGATIVE (NEGATIVE); KETONES,URINE 3+ (NEGATIVE); LEUKOCYTE ESTERASE ,URINE NEGATIVE (NEGATIVE); NITRITE, URINE NEGATIVE (NEGATIVE); PROTEIN URINE TRACE (NEGATIVE); UROBILINOGEN,URINE 0.2 (0.2-1.0)
[2016-12-27 17:58] LABS: BLOOD, URINE TRACE (NEGATIVE)
[2016-12-27 18:09] LABS: BACTERIA,URINE RARE /HPF (None Seen); WBC,URINE 0-3 /HPF (0-3)
[2016-12-27 18:10] LABS: OTHER CASTS, URINE WBC CASTS 1+ /LPF (None Seen)
[2016-12-27] MEDS ORDERED: ONDANSETRON HCL 4 MG/2 ML VIAL IVP PRN ×2 (18:15→22:45)
--- NOTE | 2016-12-27 18:35 | NUR ---
ADMISSION NOTE Received patient from ER via luke, received report from ARNOLDO PINEDO. Patient admitted with diagnosis of DEHYDRATION/ESOPHAGEAL CANCER. Patient oriented to hospital routine, call light, toileting and safety-patient verbalized understanding.
[2016-12-27 18:36] VITALS: BP 139/68; PULSE 60; RESP 18; TEMP 97.9; O2SAT 96
--- NOTE | 2016-12-27 18:40 | NUR ---
Patient will be admitted to care of Dr. Coffey. Admitted to Tele unit. Will go to room 120-A. Belongings list completed. Summary report printed. Report given to KHRIS Nova.
[2016-12-27] MEDS ORDERED: NACL 0.9% 1,000 ML IV SCH (18:45)
[2016-12-27] MEDS ORDERED: POTASSIUM CHLORIDE 40 MEQ, LIDOCAINE JECT 2% PF 100 MG 50 MG in NS 250 ML IV ONE ×2 (19:00→22:45)
[2016-12-27 20:26] VITALS: BP 118/66; PULSE 58; RESP 18; TEMP 97.6; O2SAT 95
--- NOTE | 2016-12-27 20:45 | NUR ---
K RIDER started & infusing family at the bedside / .
--- NOTE | 2016-12-27 21:15 | NUR ---
DR BELLAMY here to see patient new orders obtained / .
[2016-12-27] MEDS ORDERED: *PPN PER PHARMACY XX PRN (22:30)
[2016-12-27] MEDS ORDERED: ACETAMINOPHEN 650 MG SUPP.RECT RC PRN (22:45)
[2016-12-27] MEDS ORDERED: LIDOCAINE 2%, 20 ML MDV ONE (23:35)
[2016-12-27] MEDS ORDERED: KCL 40 mEq in 100 mL (PREMIX) 100 ML IV ONE (23:35)
--- NOTE | 2016-12-27 23:46 | NUR ---
SWALLOW MATIAS CALLED CALLED [facility] FOR A SWALLOW MATIAS LEFT A VOICEMAIL AT [phone].
--- NOTE | 2016-12-28 | NUR ---
BSG blood sugar @ 58 md dl . Dextrose 50 % one amp administer as ordered , patient awake alert family @ the bedside / .
[2016-12-28 00:37] VITALS: BP 130/66; PULSE 61; RESP 16; TEMP 97.6; O2SAT 94
[2016-12-28] MEDS: DEXTROSE 50% JECT 50 ML DISP.SYRIN IVP PRN ×2 (01:25→06:25)
--- NOTE | 2016-12-28 01:44 | NUR ---
K RIDER second dose infusing patient awake alert / .
--- NOTE | 2016-12-28 05:42 | NUR ---
Patient resting this hour family @ the bedside on room air chest movement symmetrical unlabored no complaints made .
[2016-12-28 06:22] VITALS: BP 133/66; PULSE 70; RESP 18; TEMP 97.9; O2SAT 96
[2016-12-28 06:35] LABS: HEMATOCRIT 27.2 % (36-48); HEMOGLOBIN 8.9 g/dL (12.0-16.0); MEAN CORPUSCULAR HEMOGLOBIN 28 pg (27-31); MEAN CORPUSCULAR HGB CONC 33 % (32-36); MEAN CORPUSCULAR VOLUME 85 fL (79.0-98.0); PLATELET COUNT (AUTO) 261 K/uL (130-430); RED BLOOD CELL COUNT(AUTO) 3.22 MIL/uL (4.2-6.2); RED CELL DISTRIBUTION WIDTH 14.8 % (9.0-15.0)
[2016-12-28 07:00] LABS: ALBUMIN 2.2 g/dL (3.4-4.8); CALCIUM 7.8 mg/dL (8.4-11.0); CREATININE 0.83 mg/dL (0.55-1.30); PHOSPHORUS 2.5 mg/dL (2.7-4.5); TOTAL BILIRUBIN 0.5 mg/dL (0.0-1.0)
[2016-12-28 07:06] LABS: WHITE BLOOD COUNT (AUTO) 3.8 K/uL (4.8-10.8)
[2016-12-28 07:08] LABS: POTASSIUM 2.6 mmol/L (3.5-5.1)
[2016-12-28] MEDS ORDERED: POTASSIUM CHLORIDE 40 MEQ, LIDOCAINE JECT 2% PF 100 MG 50 MG in NS 250 ML IV ONE ×2 (07:30→10:30)
--- NOTE | 2016-12-28 08:03 | NUR ---
AM ROUNDS: No s/s of distress noted. Will continue to monitor.
[2016-12-28 08:14] VITALS: BP 126/64; PULSE 66; RESP 20; TEMP 97.8; O2SAT 93
--- NOTE | 2016-12-28 10:01 | NUR ---
PATIENT RESTING: Patient resting quietly. No acute distress noted. Vital signs within normal range.
[2016-12-28 10:14] LABS: ATYPICAL LYMPHOCYTES % 0 % (0-0); BAND % (MANUAL) 0 % (0-6); BASOPHILS % (MANUAL) 0 % (0-2); EOSINOPHILS % (MANUAL) 5 % (0-7); LYMPHOCYTES % (MANUAL) 18 % (20-46); MONOCYTES % (MANUAL) 10 % (0-11)
--- NOTE | 2016-12-28 12:13 | NUR ---
PATIENT RESTING: Patient resting quietly. No acute distress noted. Vital signs within normal range.
[2016-12-28 12:23] VITALS: BP 155/80; PULSE 68; RESP 16; TEMP 98.8; O2SAT 96
--- NOTE | 2016-12-28 12:30 | NUR ---
BT INITIATION: Consent signed per patient agreeing to administration of blood. Blood has been type and crossmatched. Blood sent from blood bank. Information on unit of blood checked against patient wristband at bedside by two nurses. All information matches. Patient or responsible republican informed of potential complications associated with blood transfusion. Informed of possible transfusion reaction symptoms. Aware of need to notify nurse at once of itching, shortness of breath, flushing, feeling of impending doom, or other symptoms not previously present. Vital signs taken within 5 minutes prior to initiation of transfusion. RN will remain with patient for first 15 minutes of transfusion at which time vital signs will be re-assessed.
--- NOTE | 2016-12-28 13:44 | NUR ---
S.T. SWALLOW EVAL PERFORMED. DTR PRESENT. PT IS ONLY ABLE TO TOLERATE SMALL AMOUNT OF THIN LIQUIDS PRESENTED VIA BABY BOTTLE. NO S/S OF ASPIRATION ON THIN LIQUIDS. PT STATES THAT SHE IS UNABLE TO TAKE ANYTHING ELSE OTHER THAN THIN LIQUIDS D/T VOMITING. SEVERE RISK FOR MALNUTRITION AND DEHYDRATION. PT WISHES TO HAVE GT PLACEMENT. REC: CONCUR W/ GT PLACEMENT. MAY HAVE SMALL AMOUNT OF THIN LIQUIDS FOR ORAL GRATIFICATION IF DESIRED. G8996 CM G8997 CM G8998 CM NOMS LEVEL 2 Addendum: 12/28/16 at [address] THANH MURRAY NOTIFIED. Addendum: 12/28/16 at 1419 by [employer] NURSE CORDOVA EXPLAINED THE POSSIBLE NEED FOR J TUBE. WENT W/ ART TO SPEAK W/ PT'S DTR MAY AND EXPLAINED THE POSSIBLE NEED FOR J TUBE. SHE VERBALIZED UNDERSTANDING AND WILL MAKE DECISIONS AFTER GT CONSULT.
--- NOTE | 2016-12-28 14:00 | NUR ---
PATIENT RESTING: Patient resting quietly. No acute distress noted. Vital signs within normal range.
--- NOTE | 2016-12-28 14:17 | NUR ---
CONSULT DOCTOR PAGED : MONAE PHOENIX ORDERD BY DOCTOR: HIMANSHU BELLAMY REASON: PEG TUBE PLACEMENT SPOKE WITH: BRUCE
[2016-12-28] MEDS: SODIUM ACETATE IV SCH ×10 (14:56)
[2016-12-28] MEDS: [UNRECOGNIZED DRUG - OTHER] IV SCH ×10 (14:56)
[2016-12-28] MEDS: TPN PERIPHERAL IV SCH ×10 (14:56)
[2016-12-28] MEDS: POTASSIUM CHLORIDE IV SCH ×10 (14:56)
[2016-12-28] MEDS: FAT EMULSIONS 250 ML IV SCH (14:57)
--- NOTE | 2016-12-28 16:21 | NUR ---
PATIENT RESTING: Patient resting quietly. No acute distress noted. Vital signs within normal range.
[2016-12-28 16:46] VITALS: BP 139/72; PULSE 59; RESP 17; TEMP 98.4; O2SAT 99
--- NOTE | 2016-12-28 18:13 | NUR ---
CLOSING NOTE: All needs met. 2 k-riders infused, 1 unit of blood transfused, PPN and lipids started. Will endorse to NOC shift nurse.
[2016-12-28 20:00] VITALS: BP 142/87; PULSE 62; RESP 18; TEMP 98.5; O2SAT 98
--- NOTE | 2016-12-28 20:00 | NUR ---
Initial Notes Received patient resting in bed, awake, alert, oriented, family at bedside. Patient denies any acute distress or pain at this time. Breathing even and unlabored on room air. Vital signs stable. Left arm IV site noted to be swollen, tender, and leaking, site discontinued, arm elevated. Right IV site patent/clean/dry, PPN and lipids infusing. Educated patient on use of call light for assistance and fall precautions, patient verbalized understanding. Call light in hand, fall precautions in place. Will continue to monitor.
--- NOTE | 2016-12-28 22:00 | NUR ---
Rounds Patient resting in bed, awake, family at bedside. Patient denies any acute distress or pain at this time. Breathing even and unlabored. IV site patent/clean/dry. Call light in hand, will continue to monitor.
--- NOTE | 2016-12-29 | NUR ---
Rounds Patient resting in bed with eyes closed, easily aroused, family at bedside. Patient denies any acute distress or pain at this time. Breathing even and unlabored. IV site patent/clean/dry. Call light in hand, will continue to monitor.
[2016-12-29 00:56] VITALS: BP 146/55; PULSE 60; RESP 17; TEMP 98.1; O2SAT 95
--- NOTE | 2016-12-29 02:00 | NUR ---
Rounds Patient resting in bed with eyes closed. No acute distress noted, breathing even and unlabored. Call light in hand, fall precautions in place. Will continue to monitor.
[2016-12-29 03:25] VITALS: BP 130/57; PULSE 56; RESP 18; TEMP 96.8; O2SAT 93
--- NOTE | 2016-12-29 04:00 | NUR ---
Rounds Patient resting in bed with eyes closed. No acute distress noted, breathing even and unlabored. IV site patent/clean/dry. Call light in hand, will continue to monitor.
--- NOTE | 2016-12-29 06:30 | NUR ---
Closing Notes Patient resting in bed with eyes closed, easily aroused, at bedside. Patient denies any acute distress or pain at this time. Latest vital signs stable. IV site patent/clean/dry, no S/S infection/infiltration noted. PPN and lipids infusing per MD order. Needs addressed throughout shift. Call light in hand, fall precautions in place. Will continue to monitor for changes and safety, and endorse all patient care/needs to oncoming nurse.
[2016-12-29 06:47] LABS: CALCIUM 7.6 mg/dL (8.4-11.0); CREATININE 0.74 mg/dL (0.55-1.30); PHOSPHORUS 1.8 mg/dL (2.7-4.5); POTASSIUM 3.3 mmol/L (3.5-5.1)
--- NOTE | 2016-12-29 07:40 | NUR ---
Initial Note Received pt in bed, no s/s of distress or sob noted, pt has no c/o pain at this time, pt in stable condition, pt aaox4, verbal. IV catheter patent, no signs of infection or infiltration noted, ppn and lipids running at prescribed settings. Pt has bilateral scd's in place. Bed at lowest position, call light within reach, will continue to monitor pt for any change
[2016-12-29 07:50] VITALS: BP 117/88; PULSE 55; RESP 18; TEMP 98.7; O2SAT 97
--- NOTE | 2016-12-29 08:51 | NUR ---
DISCHARGE PLANNING DC planning order to arrange home health. Per previous visit confirmed patient on service with [facility] [phone]. Will fax updated EMR requesting to resume home health visits upon patient discharge. Addendum: 12/29/16 at 1251 by Gricelda Villarreal DP spoke with Akiko in intake dept at [facility] will resume home health upon patient discharge. Faxed PPN order to [facility] [phone]. will follow up. Addendum: 12/29/16 at 1405 by Gricelda Villarreal DP Spoke with Ciara at [facility] who requesting consult for Peg placement to be faxed. Pending consult. Will follow up.
--- NOTE | 2016-12-29 09:20 | NUR ---
Nutrition Update Dylan Scale 17 noted. Pt admitted for dehydration esophageal CA. Diet: clear liquid BMI: 18.8 kg/m2 RD to follow per nutrition care standards.
--- NOTE | 2016-12-29 10:32 | NUR ---
Rounds Pt sitting up in chair with family at her side, no s/s of distress or sob noted, pt has no c/o pain at this time, pt in stable condition, pt resting comfortably, will continue to monitor pt for any changes.
[2016-12-29] MEDS: INSULIN REGULAR, HUMAN 100 UNITS/ML, 10 ML VIAL (novoLIN R) SUBCUT PRN ×2 (11:58→17:47)
[2016-12-29 12:29] VITALS: BP 136/67; PULSE 59; RESP 16; TEMP 96.6; O2SAT 95
--- NOTE | 2016-12-29 12:52 | NUR ---
Rounds Pt in bed, no s/s of distress or sob noted, pt has no c/o pain at this time, pt in stable condition, pt resting comfortably, will continue to monitor pt for any changes.
[2016-12-29] MEDS: FAT EMULSIONS 250 ML IV SCH (12:55)
[2016-12-29] MEDS: POTASSIUM CHLORIDE IV SCH ×20 (13:53→15:06)
[2016-12-29] MEDS: [UNRECOGNIZED DRUG - OTHER] IV SCH ×10 (13:53)
[2016-12-29] MEDS: SODIUM ACETATE IV SCH ×20 (13:53→15:06)
[2016-12-29] MEDS: TPN PERIPHERAL IV SCH ×20 (13:53→15:06)
--- NOTE | 2016-12-29 14:06 | NUR ---
Rounds Patient resting comfortably in bed, no complaints of pain at this time. Patient has family at bedside. No signs or symptoms of distress noted. Bed is in lowest position, call light within reach, bed alarm on. Will continue to monitor patient for changes.
[2016-12-29] MEDS ORDERED: POTASSIUM CHLORIDE 40 MEQ, LIDOCAINE JECT 2% PF 100 MG 50 MG in NS 250 ML IV ONE (14:15)
[2016-12-29] MEDS ORDERED: K PHOS 30 MM in NS 250 ML IV ONE (15:00)
[2016-12-29] MEDS: [UNRECOGNIZED DRUG - OTHER] IV SCH ×10 (15:06)
--- NOTE | 2016-12-29 16:00 | NUR ---
MD ROUNDS Dr Flores making his rounds, aware of patients condition, per md pt needs a surgical g tube placement, md will speak with dr adame about a surgical consult.
[2016-12-29 16:02] VITALS: Ht 160 cm; Wt 52.2 kg
[2016-12-29 16:28] VITALS: BP 125/71; PULSE 56; RESP 17; TEMP 97.5; O2SAT 95
--- NOTE | 2016-12-29 16:40 | NUR ---
Rounds Pt laying in bed with family at her side, no s/s of distress or sob noted, pt has no c/o pain at this time, pt in stable condition, pt resting comfortably, will continue to monitor pt for any changes.
--- NOTE | 2016-12-29 17:19 | NUR ---
CA Consult: Dr. Coffey at station talking on the phone with Dr. Degroot about consult.
--- NOTE | 2016-12-29 18:12 | NUR ---
Closing Note Pt in bed, no s/s of distress or sob noted, pt has no c/o pain at this time, pt in stable condition, pt aaox4, verbal. IV catheter patent, no signs of infection or infiltration noted, ppn and lipids running at prescribed settings. Pt has bilateral scd's in place. Bed at lowest position, call light within reach, will endorse care of pt to incoming nurse.
--- NOTE | 2016-12-29 19:30 | NUR ---
initial nursing notes: Patient is awake. Patient has TPN, lipid and Potassium IV infusing on the right forearm IV access. is talking to the patient and patient's daughter at the bedside.
[2016-12-29 19:40] VITALS: BP 139/71; PULSE 61; RESP 16; TEMP 97.9; O2SAT 95
--- NOTE | 2016-12-29 21:30 | NUR ---
nursing rounds: Patient went to have CT of chest, abdomen and pelvis done.
[2016-12-29] MEDS ORDERED: IOHEXOL 100 ML IV ONE (21:39)
--- NOTE | 2016-12-29 22:10 | NUR ---
nursing rounds: Patient just came back from CT of chest, abdomen and pelvis. Patient denies of having pain.
[2016-12-30] VITALS (7 sets, daily range): BP systolic 114–145; BP diastolic 54–75; PULSE 49–60; RESP 16–18; TEMP 97–98.7; O2SAT 8–98
--- NOTE | 2016-12-30 00:10 | NUR ---
nursing rounds: Will check patient's blood sugar.
--- NOTE | 2016-12-30 00:30 | NUR ---
nursing rounds: Checked patient's blood sugar, 89. No insulin coverage provided.
--- NOTE | 2016-12-30 02:30 | NUR ---
nursing rounds: Patient is asleep. Patient has no shortness of breath.
--- NOTE | 2016-12-30 04:30 | NUR ---
nursing rounds: Patient is sleeping in bed. Patient has no respiratory distress.
--- NOTE | 2016-12-30 06:00 | NUR ---
nursing rounds: Patient calmly resting in bed. Call light within patient's reach.
[2016-12-30 06:53] LABS: BASOPHILS % (AUTO) 0.9 % (0.0-2.0); EOSINOPHILS # (AUTO) 0.2 K/uL (0.0-0.4); EOSINOPHILS % (AUTO) 2.9 % (0.0-4.0); HEMATOCRIT 31.7 % (36-48); HEMOGLOBIN 10.5 g/dL (12.0-16.0); LYMPHOCYTES # (AUTO) 0.9 K/uL (1.0-5.5); LYMPHOCYTES % (AUTO) 16.8 % (20.5-51.5); MEAN CORPUSCULAR HEMOGLOBIN 29 pg (27-31); MEAN CORPUSCULAR HGB CONC 33 % (32-36); MEAN CORPUSCULAR VOLUME 86 fL (79.0-98.0); MONOCYTES # (AUTO) 0.4 K/uL (0.0-1.0); MONOCYTES % (AUTO) 6.5 % (1.7-9.3); NEUTROPHILS % (AUTO) 72.9 % (40.0-70.0); PLATELET COUNT (AUTO) 256 K/uL (130-430); RED CELL DISTRIBUTION WIDTH 14.7 % (9.0-15.0); WHITE BLOOD COUNT (AUTO) 5.5 K/uL (4.8-10.8)
[2016-12-30 07:13] LABS: CREATININE 0.75 mg/dL (0.55-1.30); PHOSPHORUS 3.9 mg/dL (2.7-4.5); POTASSIUM 3.6 mmol/L (3.5-5.1)
--- NOTE | 2016-12-30 07:28 | NUR ---
closing nursing notes: Patient is awake, alert and oriented X 4. Patient is in no acute respiratory distress. No episodes of fall and no injuries throughout the fast food shift supervisor. Provided nursing report to incoming morning shift nurse, KHRIS Gallegos, at patient's bedside.
--- NOTE | 2016-12-30 10:34 | NUR ---
CONSULT SURGICAL POSSIBLE SURGERY DR WILD [phone] DR WILD ROUNDING AND AWARE OF CONSULT
[2016-12-30] MEDS: FAT EMULSIONS 250 ML IV SCH (11:14)
[2016-12-30] MEDS: INSULIN REGULAR, HUMAN 100 UNITS/ML, 10 ML VIAL (novoLIN R) SUBCUT PRN ×2 (11:22→17:28)
--- NOTE | 2016-12-30 12:01 | NUR ---
Rounds Pt in bed, no s/s of distress or sob noted, pt has no c/o pain at this time, pt in stable condition, pt resting comfortably, will continue to monitor pt for any changes. Pt c/o pain on IV on right forearm, removed catheter, catheter intact, no active bleeding, dressing in place. Pt received CHG bath at 1130.
--- NOTE | 2016-12-30 13:00 | NUR ---
SURGERY Pt left unit for surgery, pt in stable condition, pt aaox4, verbal, no s/s of distress or sob noted, attempted to insert an iv catheter four times by three different nurses, unsuccessful. Pt has an iv on left hand, 22 gauge, flushes and has blood return.
[2016-12-30] MEDS ORDERED: HYDROmorphone 1 MG INJ. 1 MG/ML AMPUL IVP PRN (14:00)
--- NOTE | 2016-12-30 14:25 | NUR ---
Rounds Pt in bed, no s/s of distress or sob noted, pt has no c/o pain at this time, pt in stable condition, pt resting comfortably, will continue to monitor pt for any changes. Addendum: 12/30/16 at 1514 by Rosy Leary RN pt still in surgery, note not for this pt
--- NOTE | 2016-12-30 14:32 | NUR ---
MD ROUNDS Dr Erlinda handley, aware of patients condition and that she is in surgery, per md not to stop PPN and Lipids as ordered until feedings are ordered in [address] Monteiro.
[2016-12-30] MEDS ORDERED: D5W 250 ML IV ONE (14:45)
[2016-12-30] MEDS ORDERED: HYDROmorphone 1 MG INJ. 1 MG/ML AMPUL ONE (15:00)
[2016-12-30] MEDS: SODIUM ACETATE IV SCH ×10 (15:37)
[2016-12-30] MEDS: TPN PERIPHERAL IV SCH ×10 (15:37)
[2016-12-30] MEDS: POTASSIUM CHLORIDE IV SCH ×10 (15:37)
[2016-12-30] MEDS: [UNRECOGNIZED DRUG - OTHER] IV SCH ×10 (15:37)
--- NOTE | 2016-12-30 15:45 | NUR ---
Back From Surgery Pt back from surgery, pt in stable condition, no s/s of distress or sob noted, pt has no c/o pain at this time, pt sleepy but arousable to touch and voice. VSS, 142/72, 49, 97% on 2 liters via nasal cannula, 98.6, 16, temp 98.6, will continue to monitor pt for any changes, dressing on abd clean and dry. SCD's in place.
--- NOTE | 2016-12-30 18:06 | NUR ---
Closing Note Pt in bed, no s/s of distress or sob noted, pt has no c/o pain at this time, pt in stable condition, pt aaox4, verbal. IV catheter patent, no signs of infection or infiltration noted, ppn and lipids running at prescribed settings. Pt has bilateral scd's in place. Bed at lowest position, call light within reach, will endorse care of pt to incoming nurse. Dressing on abd clean and dry.
--- NOTE | 2016-12-30 19:45 | NUR ---
Initial notes Patient alert and oriented, able to make needs known. Patient denies pain at this time. No SOB noted, on room air. IV site patent, flushes well, infusing PPN and lipids as ordered. G tube in place, dressing CDI. Patient repositioned in bed. Family members at bedside. Goal of pain management, GI stability and safety this shift. Call light within reach. Will continue to monitor.
--- NOTE | 2016-12-30 22:10 | NUR ---
Notes Patient sleeping at this time. No s/s of pain noted. No SOB noted. IV site patent, flushes well. Call light within reach. Will continue to monitor.
[2016-12-30] MEDS: MORPHINE 2 MG/ML INJ. SYRINGE IVP PRN (22:15)
[2016-12-30] MEDS ORDERED: MORPHINE 4 MG/ML INJ. SYRINGE IVP PRN (22:15)
--- NOTE | 2016-12-30 22:26 | NUR ---
NOTE: ORDER WAS GIVING @ 4303 TO SWITCHED FROM TELE TO MED SURG NEITHER KHRIS ARROYO OR CHARGE NURSE TOLD US TO SWITCHED PATIENT TO MED SURG. CHARGE NIGHT NURSE FRANCO CAME OVER TO TELL ME WHY I HAVE NOT SWITCHED PATIENT YET. WE ALWAYS HAVE THIS ISSUE EVERY NIGHT DAY STAFF ARE NOT DOING THEIR JOB. ALSO THEY DO NOT DC PATIENTS. EVERY DAY SAME ISSUE. WHEN I AM ON WEST I ALWAYS MAKE SURE CENSUS IS CORRECT.
--- NOTE | 2016-12-31 00:14 | NUR ---
Notes Patient sleeping at this time. No s/s of pain noted. Afebrile. No SOB noted. IV site patent, flushes well. Call light within reach. Will continue to monitor.
[2016-12-31 03:45] VITALS: BP 109/61; PULSE 52; RESP 18; TEMP 96.6; O2SAT 97
--- NOTE | 2016-12-31 06:20 | NUR ---
Closing Notes Patient denies pain at this time. No SOB noted, on room air. IV site patent, flushes well. G tube in place, dressing CDI. Patient repositioned in bed. Goal of pain management, GI stability and safety met. Call light within reach. Will continue to monitor.
[2016-12-31 06:47] LABS: BASOPHILS % (AUTO) 0.1 % (0.0-2.0); EOSINOPHILS % (AUTO) 0.1 % (0.0-4.0); HEMATOCRIT 29.8 % (36-48); LYMPHOCYTES # (AUTO) 0.7 K/uL (1.0-5.5); LYMPHOCYTES % (AUTO) 7.9 % (20.5-51.5); MEAN CORPUSCULAR HEMOGLOBIN 28 pg (27-31); MEAN CORPUSCULAR HGB CONC 34 % (32-36); MEAN CORPUSCULAR VOLUME 85 fL (79.0-98.0); MONOCYTES # (AUTO) 0.4 K/uL (0.0-1.0); MONOCYTES % (AUTO) 4.6 % (1.7-9.3); NEUTROPHILS # (AUTO) 7.8 K/uL (1.8-7.7); NEUTROPHILS % (AUTO) 87.3 % (40.0-70.0); PLATELET COUNT (AUTO) 194 K/uL (130-430); RED BLOOD CELL COUNT(AUTO) 3.53 MIL/uL (4.2-6.2); WHITE BLOOD COUNT (AUTO) 8.9 K/uL (4.8-10.8)
[2016-12-31 06:49] LABS: ALBUMIN 2.1 g/dL (3.4-4.8); CALCIUM 7.9 mg/dL (8.4-11.0); CREATININE 0.8 mg/dL (0.55-1.30); PHOSPHORUS 4.3 mg/dL (2.7-4.5); POTASSIUM 4.5 mmol/L (3.5-5.1); TOTAL BILIRUBIN 0.4 mg/dL (0.0-1.0); TOTAL PROTEIN, SERUM 5.2 g/dL (6.4-8.3)
--- NOTE | 2016-12-31 07:45 | NUR ---
Initial note Received patient from third shift lieutenant nurse, patient is alert and oriented, no signs of distress, patient currently denies pain at this time,assessment complete, patient has a IV site on left hand gauge 22, with PPN and lipids infusing, G tube is currently in place, not being use at this time, dressing is dry and intact. instructed patient to use call garland if assistance is needed, patient verbalized understanding, call garland left in patient's hand, bed in lowest position, bed alarm on, two side rails up, fall precautions in place, will continue to monitor.
[2016-12-31 08:00] VITALS: BP 126/64; PULSE 58; RESP 12; TEMP 98.6
--- NOTE | 2016-12-31 08:45 | NUR ---
RN ROUNDS Patient currently states that she is having pain around g-tube side, prn medications given, will reassess, no other needs at this time, call garland left within reach of patient's hand, will continue to monitor,fall precautions in place
[2016-12-31] MEDS: MORPHINE 2 MG/ML INJ. SYRINGE IVP PRN (08:52)
--- NOTE | 2016-12-31 10:30 | NUR ---
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 Pt appeared adequately nourished for height. Bedscale wt: 126 lb, likely inflated d/t blankets and other equipment on bed at the time. Per RN notes, dressing on abdomen is clean and dry. GI Integrity: Per EMR, abdomen is soft and non-distended with active bowel sounds. BM x1 yesterday. PO Intakes: Pt continues to refuse clear liquid meal tray. 0% average PO intakes. PPN: D20%, AA8.5% seen running at 44.5 ml/hr. IL20% seen running at 10 ml/hr. Current PPN support provides 1024 kcal, 45 gm protein, and 1308 ml total volume per day. GIR: 1.5 gm CHO/kg/min. This meets 71% of lower end of estimated calorie needs and 78% of lower end of estimated protein needs. Plans/Procedures: G-tube placed yesterday, 12/30 per surgical record. Per RN notes, PPN to continue per MD order until pt is cleared by surgeon to start EN feedings. Current Diet Order/Nutrition Support PPN D20%, AA8.5% at 44.5 ml/hr, IL20% at 10 ml/hr daily Pertinent Medications Reviewed Pertinent Labs 12/28/16: TG 157 H 12/31/16: BG 137 H Height (Feet) 5 feet Height (Inches) 3.00 inches Weight (Pounds) 115 pounds (admission) 12/31/16: 126 lb, 57 kg (bedscale); unsure of accuracy Weight (Calculated Kilograms) 52.684728 kilograms Patient Weight 52.163 kg Body Mass Index 20.37 kg/m2 (underweight for geriatric status) Usual Weight 136 lbs %UBW 85 %IBW 100 [place]/Adjusted Body Weight IBW: 115 lb, 52 kg Recent Weight Change Yes - 30 lb unintentional wt loss (last three months); 22% wt change (severe) Weight Status Underweight for geriatric status Gastrointestinal Symptoms None Last BM x1 - Dec 30, 2016 Difficulty With: Swallowing Food Allergies No Usual Diet At Home Liquids Skin Integrity Comment: 12/30/16: Dylan scale - 18; no skin issues noted Estimated Energy Expenditure (kcals/day) 0509-0318 kcal/day (30-35 kcal/kg CBW for CA) Estimated Protein Required (g/day) 58-72 gm/day (1.2-1.5 gm/kg CBW for CA) Estimated Fluid Required (l/day) 1.4-1.7 L/day (1 ml/kcal/day for maintenance) Problem/Etiology/Signs/Symptoms Increased nutritional needs related to metabolic demands as evidenced by increased nutritional requirements for CA. *ongoing Expected Outcomes/Goals 1. Monitor PPN tolerance with goal of pt meeting at least 50% of estimated nutritional needs 2. Monitor initiation of EN feeding with goal of meeting at least 50% of estimated needs with acceptable tolerance 3. Labs trending within normal limits 4. Normal GI function 5. Maintain skin integrity 6. Weight maintenance Dietitian Recommendations * Recommend Isosource 1.5 at 45 ml/hr, free water flush: 150 ml q6h via GT Provides: 1620 kcal, 73 gm protein, and 825 ml free water per day. Meets: 96% of upper end of estimated calorie needs and 101% of upper end of estimated protein needs. Follow Up High Risk: F/U in 2-3days Addendum: 12/31/16 at [address] RD was consulted by Dr. Coffey regarding initiation of EN. He stated that they would like to start w/ bolus feedings at this time. RD recommendations: Replete Very High Protein Complete Nutrition (250 ml carton bolus feeding) 6x/day Q4h, Free Water Flush: 150 ml Q4h via GT Provides: 1500 kcal/day, 96 gm protein/day, and 1215 ml free water/day Meets: 104% of lower end of estimated caloric needs and 133% of lower end of estimated protein needs Dr. Coffey was agreeable w/ RD rec. RD to implement order via TO/RB. RD notified primary RNAshlyn. [facility] staff to provide TF formula. RD to continue to follow per nutrition care standards. Addendum: 01/01/17 at [address] ANDREZ reviewed/approved fall intern's note. ANDREZ JOSEPH
--- NOTE | 2016-12-31 11:00 | NUR ---
RN Rounds Patient is currently resting in bed, no signs of distress, patient has no complaints of pain at this time, bed left in lowest position, bed alarm on, fall precautions in place, will continue to monitor.
[2016-12-31] MEDS: FAT EMULSIONS 250 ML IV SCH (11:10)
[2016-12-31 12:00] VITALS: BP 121/71; PULSE 54; RESP 18; TEMP 97.5; O2SAT 98
--- NOTE | 2016-12-31 12:16 | NUR ---
DISCHARGE PLANNING Faxed current discharge planning order to [phone]. Will follow up. Addendum: 12/31/16 at 1605 by Gricelda Villarreal DP spoke with Jacquie at [facility] who stated unable to arrange GT feedings due to not contracted with Medicare. Faxed order to [phone]. Spoke with Akiko at [facility] who confirmed fax received and requested DCP to keep her informed on when patient will be discharged. DCP will follow up.
--- NOTE | 2016-12-31 13:00 | NUR ---
RN rounds patient is resting in bed, no signs of distress, no complaints of pain at this time, family member is at bedside, no other needs at this time, call garland within patient's reach, bed in lowest position, bed alarm on, fall precautions in place, will continue to monitor patient.
--- NOTE | 2016-12-31 14:20 | NUR ---
RN ROUNDS PATIENT IS CURRENTLY RESTING IN BED WITH EYES CLOSED, NO SIGNS OF DISTRESS, NO COMPLAINTS OF PAIN, FAMILY IS STILL AT BED SIDE, NO OTHER NEEDS AT THIS TIME, CALL PATRICK WITHIN REACH OF PATIENT'S HAND, BED ALARM ON, FALL PRECAUTIONS IN PLACE, WILL CONTINUE TO MONITOR PATIENT.
[2016-12-31] MEDS ORDERED: SODIUM CHLORIDE IV SCH ×11 (15:00)
[2016-12-31] MEDS ORDERED: TPN PERIPHERAL IV SCH ×11 (15:00)
[2016-12-31] MEDS ORDERED: [UNRECOGNIZED DRUG - OTHER] IV SCH ×11 (15:00)
[2016-12-31] MEDS ORDERED: POTASSIUM CHLORIDE IV SCH ×11 (15:00)
--- NOTE | 2016-12-31 16:30 | NUR ---
RN ROUNDS PATIENT IS RESTING IN BED, NO SIGNS OF DISTRESS, STARTED BOLUS FEEDING FOR PATIENT, 10ML OF RESIDUAL BEFORE FEEDINGS STARTED, INSTRUCTED PATIENT NOT TO LAY HEAD DOWN FLAT BECAUSE OF RISK FOR ASPIRATION, PATIENT AND VERBALIZED UNDERSTANDING, PATIENT TOLERATED FEEDING BOLUS, WILL CONTINUE TO MONITOR PATIENT FOR ANY SIGNS OF DISTRESS OR PAIN, BED IN LOWEST POSITION, CALL PATRICK IN REACH, THREE SIDE RAILS UP, BED ALARM ON, WILL CONTINUE TO MONITOR PATIENT.
[2016-12-31 16:46] VITALS: BP 118/75; PULSE 56; RESP 18; TEMP 97.3; O2SAT 98
--- NOTE | 2016-12-31 18:45 | NUR ---
CLOSING NOTES PATIENT IS CURRENTLY RESTING IN BED, NO COMPLAINTS OF PAIN, NO SIGNS OF DISTRESS, PATIENT WAS CHANGED, ALL NEEDS MET, BED IN LOWEST POSITION, CALL PATRICK WITHIN REACH, BED ALARM ON, THREE SIDE RAILS UP, FALL PRECAUTIONS IN PLACE. WILL ENDORSE TO TURN DOWN WORKER NURSE.
--- NOTE | 2016-12-31 19:20 | NUR ---
DR. BELLAMY [facility] TALKED TO PATIENT AT BEDSIDE
[2016-12-31 19:30] VITALS: BP 136/63; PULSE 63; RESP 18; TEMP 98.4; O2SAT 97
--- NOTE | 2016-12-31 19:30 | NUR ---
INITIAL NOTE Patient resting on the bed. No acute distress. Respiration even and unlabored. Denied of pain. Skin warm and dry to touch. IV intact to left hand, no redness, no swelling, no drainage. On TPN at 42ml/hr, lipid 10ml/hr, infusing well. Discussed the safety issue, use call light when need help, and plan of care, verbally understanding. Family at bedside. Safety measure maintained. Call light within reached. Bed in low position, side rails up. Will continue to monitor.
[2016-12-31] MEDS ORDERED: COMMUNICATION ORDER XX ONE (20:45)
--- NOTE | 2016-12-31 20:45 | NUR ---
RECEIVED ORDER Ugo Saleh with order wean off TPN, decrease rate from 42ml/hr to 30ml/hr, then decrease 10ml/hr every 4 hrs, then D/C and D/C lipid now. Continue the GT bolus feeding as ordered. Ordered read back and okay to .
--- NOTE | 2016-12-31 22:30 | NUR ---
ROUND Patient resting on the bed with eyes closed. No acute distress. Respiration even and unlabored. TPN infusing well Safety measure maintained. Call light within reached. Bed in low position, side rails up. Continue to monitor
[2016-12-31 23:45] VITALS: BP 135/67; PULSE 71; RESP 18; TEMP 98.7; O2SAT 93
--- NOTE | 2017-01-01 00:45 | NUR ---
DECREASED RATE OF TPN ORDERED Decreased rate of TPN to 20ml/hr as ordered. Patient resting on the bed with eyes closed. No acute distress. Safety measure maintained. Call light within reached. Bed in low position, side rails up. sleeping at bedside. Will continue to monitor.
--- NOTE | 2017-01-01 02:20 | NUR ---
ROUND Patient sleeping at this time. Respiration even and unlabored. TPN infusing well. Safety measure maintained. Call light within reached. Bed in low position, side rails up. sleeping at bedside. Continue to monitor
--- NOTE | 2017-01-01 04:14 | NUR ---
ROUND Patient resting on the bed with eyes closed. No acute distress. Respiration even and unlabored. sleeping at bedside. Safety measure maintained. Call light within reached. Bed in low position, side rails up. Continue to monitor
[2017-01-01 04:30] VITALS: BP 122/67; PULSE 72; RESP 18; TEMP 98.2; O2SAT 94
--- NOTE | 2017-01-01 06:30 | NUR ---
CLOSING NOTE Patient resting on the bed. No acute distress. Respiration even and unlabored. Skin warm and dry to touch. IV intact to left hand, no redness, no swelling, no drainage. On TPN at 10ml/hr, infusing well. On weaning off TPN as ordered. On GT bolus and flushed GT with water as ordered, tolerated well. GT patent, no residual. at bedside the whole night. All needs met. Hourly rounding during shift. Safety measure maintained. Call light within reached. Bed in low position, side rails up. Will endorse to morning shift nurse.
[2017-01-01] MEDS: MORPHINE 2 MG/ML INJ. SYRINGE IVP PRN (06:41)
[2017-01-01 06:42] LABS: CALCIUM 7.9 mg/dL (8.4-11.0); CREATININE 0.69 mg/dL (0.55-1.30); PHOSPHORUS 3.3 mg/dL (2.7-4.5); POTASSIUM 4.1 mmol/L (3.5-5.1)
--- NOTE | 2017-01-01 07:30 | NUR ---
Initial notes: pt on bed awake. stable. at bedside. i.v. access patent. gtube in placed. scd placed on bilateral lower extremities. discussed plan of care. call light within reach. report received at bedside.
[2017-01-01 08:00] VITALS: BP 134/69; PULSE 66; RESP 16; TEMP 97.5
--- NOTE | 2017-01-01 09:00 | NUR ---
gtube feeding: pt refused to gtube feeding with the supplement. she said she is full. water only.
--- NOTE | 2017-01-01 09:30 | NUR ---
pain meds: patient refused pain meds. she said there is only pain if she moves.
--- NOTE | 2017-01-01 10:43 | NUR ---
DISCHARGE PLANNING Called [facility] [phone] spoke with Gabriela who stated Samia working on Enteral bolus order. Called Samia directly [phone] left voice message requested return call back with status update. DCP will continue to follow up. Addendum: 01/01/17 at 1146 by Gricelda MONTGOMERY Spoke with Samia at [facility]. Faxed requested progress note and signed order [phone]. Samia will have reviewed and will return call with update. DCP will continue to follow up. Addendum: 01/01/17 at 1305 by Gricelda Villarreal DP Met with patient daughter Nereida and Dutch at bedside regarding discharge planning. Answered all questions and concerns regarding arrangements being made. Nereida and Dutch are both agreeable and was made aware DCP will keep them updated once confirmation has been received for patient discharge today. Nereida and Dutch were explained Medicare IM letter Nereida signed and was given a copy. Nereida stated she would be able to provide transportation for patient once all arrangements have been made. Called and left voice message for Samia at [facility] requesting return call back on status. Called [facility] [phone] spoke with Akiko who confirmed nurse will call patient daughter Nereida and make visit arrangements to see her tomorrow. Addendum: 01/01/17 at 1537 by Gricelda MONTGOMERY Called [facility] spoke with Jomar who confirmed order in process and family will be called momentarily to make delivery arrangements. Called [facility] spoke with Akiko who confirmed same nurse that has been seeing patient will resume visits. DCP also confirmed with Akiko patient will be scheduled for daily with follow up phone calls initially untill family able to do feedings for patient. Met with patient melvin Padron at patient bedside who was updated and agreeable with arrangements made. Nereida was provided with contact numbers for [facility], [facility], and [phone] as well as product number [id number] should family want to order additional Replete. Addendum: 01/01/17 at 1704 by Gricelda MONTGOMERY Called spoke with Samia at [facility] who requested additional EMR to justify need for GT bolus feedings. Faxed needed EMR to [phone]. Samia will review and return DCP call with update. KHRIS Leo made aware arrangements unable to be arranged for patient discharge today and will call Md to make him aware. DCP will continue to follow up.
[2017-01-01] MEDS ORDERED: METOCLOPRAMIDE HCL 10 MG/2 ML VIAL IVP ONE (11:30)
--- NOTE | 2017-01-01 12:36 | NUR ---
Ondansetron: Daughter informed M.D. pt is nausea but pt refused to take medication. water will be fine.
[2017-01-01 12:49] VITALS: BP 129/65; PULSE 64; RESP 16; TEMP 97.6; O2SAT 100
--- NOTE | 2017-01-01 14:30 | NUR ---
Gtube education: pt and family give teaching to do bolus feeding. pt and family verbalized understanding.
--- NOTE | 2017-01-01 15:47 | NUR ---
rounds: pt resting. no distress noted.
[2017-01-01 16:16] VITALS: BP 135/68; PULSE 66; RESP 16; TEMP 96.9; O2SAT 97
[2017-01-01] MEDS: METOCLOPRAMIDE HCL 10 MG/10 ML UDC GT SCH (17:00)
--- NOTE | 2017-01-01 17:34 | NUR ---
Home Health: CM informed that pt needs home health to go home but there is still problem in the paper work. Will follow up tomorrow.
--- NOTE | 2017-01-01 17:38 | NUR ---
Home Health: CM called and said there is still papers needed to set up for home health. Will follow up tomorrow morning. Pt cannot go home due to home health need.
[2017-01-01] MEDS ORDERED: traMADol HCL HCL 50 MG TABLET (ULTRAM) PO PRN (17:45)
--- NOTE | 2017-01-01 18:30 | NUR ---
Gtube: started gtube feeding @ 50 cc/hr.
[2017-01-01 19:30] VITALS: BP 138/65; PULSE 67; RESP 18; TEMP 97.3; O2SAT 98
--- NOTE | 2017-01-01 19:30 | NUR ---
closing notes: pt on bed resting. friend at bedside. I.V. infiltrate. refused to start a new one. call light within reach. report given at bedside.
--- NOTE | 2017-01-01 20:00 | NUR ---
Initial note A/O x 3, no SOB, no chest pain, some dry cough, c/o GT site (surgical site) pain when coughing, but refused pain medication. Skin warm to touch, IV at L hand, patent. Dressing at ABD clean and dry. Continued Diabetisource at 50 ml/hr. Residual was 110 ml. GTF on held now. Patient denied N/V. HOB > 45 degree. No edema noted. +2 radial and pedal pulses. Education provided. Bed at lowest position, call light within reach, will continue to monitor patient. Addendum: 01/02/17 at 0225 by Philippe Ferrari RN IV/SL was infiltrated, will start a new IV later.
--- NOTE | 2017-01-01 21:10 | NUR ---
Resumed GTF and IV reinsertion Rechecked residual was 20 ml, resumed GTF Diabetisource @ 50 ml/hr. IV at L hand infiltration. Restarted a new IV at R hand with #22, good blood return, DC old IV, IV catheter intact. Patient tolerated whole procedure well.
--- NOTE | 2017-01-01 22:00 | NUR ---
Rounds A/O x 3, no SOB, no chest pain, c/o GT site (surgical site) pain when coughing, but refused pain medication. Continued Diabetisource at 50 ml/hr, patient denied N/V, HOB > 45 degree. SCD in use. Bed at lowest position, call light within reach, will continue to monitor patient.
[2017-01-01 23:48] VITALS: BP 123/63; PULSE 61; RESP 18; TEMP 98.6; O2SAT 96
--- NOTE | 2017-01-02 00:30 | NUR ---
Rounds Sleeping, no SOB, no chest pain, no grimacing. Continued Diabetisource at 50 ml/hr, patient denied N/V, HOB > 45 degree. No s/s of hyper or hypoglycemia. SCD in use. Bed at lowest position, call light within reach, will continue to monitor patient.
[2017-01-02] MEDS: INSULIN REGULAR, HUMAN 100 UNITS/ML, 10 ML VIAL (novoLIN R) SUBCUT PRN ×2 (00:39→05:58)
--- NOTE | 2017-01-02 02:00 | NUR ---
Rounds Sleeping, no SOB, no chest pain, no grimacing. Continued Diabetisource at 50 ml/hr, HOB > 45 degree. No s/s of hyper or hypoglycemia. SCD in use. Bed at lowest position, call light within reach, will continue to monitor patient.
[2017-01-02 03:45] VITALS: BP 117/60; PULSE 61; RESP 18; TEMP 97; O2SAT 97
--- NOTE | 2017-01-02 04:00 | NUR ---
Rounds Sleeping, no SOB, no chest pain, no grimacing. Continued Diabetisource at 50 ml/hr, HOB > 45 degree. Flushed 100 ml water. No s/s of hyper or hypoglycemia. SCD in use. Bed at lowest position, call light within reach, will continue to monitor patient.
[2017-01-02] MEDS: METOCLOPRAMIDE HCL 10 MG/10 ML UDC GT SCH ×2 (06:15→11:38)
--- NOTE | 2017-01-02 06:24 | NUR ---
Closing note Sleeping, no SOB, no chest pain, no grimacing. Continued Diabetisource at 50 ml/hr, HOB > 45 degree. No s/s of hyper or hypoglycemia. Patient stated no N/V and refused Reglan GT. Bed at lowest position, call light within reach, will give report to incoming nurse.
--- NOTE | 2017-01-02 07:20 | NUR ---
initial notes: pt on bed awake,alert and oriented. stable. i.v. access patent. discussed plan of care. call light within reach. report received at bedside.
[2017-01-02 08:00] VITALS: BP 125/64; PULSE 65; RESP 14; TEMP 97.4; O2SAT 99
--- NOTE | 2017-01-02 08:48 | NUR ---
rounds; pt sleeping. no distress noted.
--- NOTE | 2017-01-02 10:47 | NUR ---
DISCHARGE PLANNING Met with patient at patient bedside who confirmed feeding formula has been delivered to patient home last night and additional supply has been provided by hospital and is currently at patient bedside. Dutch was made aware home health nurse will be scheduled to see patient on Sat 01/03 and stated he would call and notify his daughter Nereida for patient discharge home. Spoke with Akiko at [facility] who confirmed nursing staff has spoken with patient daughter Nereida and scheduled to see patient tomorrow.
--- NOTE | 2017-01-02 11:51 | NUR ---
gtube education: pt on bed awake. educate to do gtube feeding. he demonstrate and able to do it. verbalized understanding.
--- NOTE | 2017-01-02 12:32 | NUR ---
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 Pt appeared adequately nourished for height. Bedscale wt: 126 lb, likely inflated d/t blankets and other equipment on bed at the time. GI Integrity: Per EMR, abdomen is soft and non-distended with active bowel sounds. Last BM 12/30/16. Tube Feeding: Diabetisource AC seen running at 50 ml/hr per MD order. This provides (with ProSource TID and 100 ml free water flush): 1620 kcal, 117 gm protein, and 1079 ml free water per day. This meets 96% of upper end of estimated calorie needs and 163% of upper end of estimated protein needs. Felt Coverer watched as RN educated family on how to check for residuals and administer water flush, meds, and ProSource. 50 ml residuals seen, 1 packet ProSource given today. Plans/Procedures: DC with home health today per RN. Per MD, home health EN order: Replete 250 ml carton q4h, free water flush: 150 q4h. Current EN order is a adequate and appropriate. Pt not appropriate for nutrition education. Current Diet Order/Nutrition Support Diabtisource AC at 50 ml/hr, ProSource TID, free water flush: 100 ml via GT Pertinent Medications Reviewed Pertinent Labs Reviewed Height (Feet) 5 feet Height (Inches) 3.00 inches Weight (Pounds) 115 pounds (admission) 12/31/16: 126 lb, 57 kg (bedscale); unsure of accuracy 01/02/17: 126 lb, 57 kg (bedscale); unsure of accuracy Weight (Calculated Kilograms) 52.904196 kilograms Patient Weight 52.163 kg Body Mass Index 20.37 kg/m2 (underweight for geriatric status) Usual Weight 136 lbs %UBW 85 %IBW 100 [place]/Adjusted Body Weight IBW: 115 lb, 52 kg Recent Weight Change Yes - 30 lb unintentional wt loss (last three months); 22% wt change (severe) Weight Status Underweight for geriatric status Gastrointestinal Symptoms None Last BM x1 - Dec 30, 2016 Difficulty With: Swallowing Food Allergies No Usual Diet At Home Liquids Skin Integrity Comment: Per EMR, 01/01/17: Dylan scale - 15; medial abdomen GT Estimated Energy Expenditure (kcals/day) 2988-4442 kcal/day (30-35 kcal/kg CBW for CA) Estimated Protein Required (g/day) 58-72 gm/day (1.2-1.5 gm/kg CBW for CA) Estimated Fluid Required (l/day) 1.4-1.7 L/day (1 ml/kcal/day for maintenance) Problem/Etiology/Signs/Symptoms Increased nutritional needs related to metabolic demands as evidenced by increased nutritional requirements for CA. *ongoing Expected Outcomes/Goals 1. Monitor EN tolerance with goal of pt meeting at least 75% of estimated nutritional needs 2. Labs trending within normal limits 3. Normal GI function 4. Maintain skin integrity 5. Weight maintenance Dietitian Recommendations * Continue Diabetisource AC at 50 ml/hr, Prosource TID, free water flush: ml via GT per MD order until DC with home health today Follow Up Moderate Risk: F/U in 3-5 days ANDREZ reviewed/approved internet database specialist's note. ANDREZ JOSEPH Addendum: 01/02/17 at [address] CORRECTIONS: Note that pt's TPN was tapered off and D/C on 01/01/17. ANDREZ reviewed/approved internet database specialist's note. ANDREZ JOSEPH
[2017-01-02 12:36] VITALS: BP 119/59; PULSE 69; RESP 18; TEMP 97.4; O2SAT 94
[2017-01-02 12:57] VITALS: BP 119/59; PULSE 69; RESP 18; TEMP 97.4; O2SAT 94
--- NOTE | 2017-01-02 13:30 | NUR ---
D/C Patient Patient given medication reconciliation form and D/C instructions. Exit Care provided. Patient verbalized understanding. MD discussed with patient the results and treatment provided. Patient in stable condition, ID band removed. IV catheter removed, intact and dressing applied, no active bleeding. Gtube in placed. Educated patient and family on bolus gtube feeding. Rx of Tramadol and Reglan given. Patient educated on pain management. All belongings sent with patient.
--- NOTE | 2017-01-06 12:12 | NUR ---
Discharge Follow Up Phone Call PRODUCTION MACHINE SHOP SUPERVISOR phoned patient's daughter, Nereida [phone]. She stated that patient is not doing well because she is vomiting. Nereida stated she has tried to call Dr Coffey, but has not had a return call. PRODUCTION MACHINE SHOP SUPERVISOR stated that they should contact patient's PCP. PCP is Dr Filipe lorenzo [phone] f [phone]. PRODUCTION MACHINE SHOP SUPERVISOR faxed H&P, Operative Report, Consult and DC Summary to PCP. Patient will also follow up at [facility] on 01/13[facility]17. [facility] nurse is coming out and will be there this afternoon; PRODUCTION MACHINE SHOP SUPERVISOR stated that nurse should help them decide on a course and can help with contacting the doctor if necessary. They have not filled patient's prescriptions. Patient does not want pain medication and is not nauseous, just vomiting. Nereida will discuss Reglan with nurse or PCP. PRODUCTION MACHINE SHOP SUPERVISOR urged again that Nereida contact the PCP. Discussed correction home care. Nereida was interested in [facility]. PRODUCTION MACHINE SHOP SUPERVISOR discussed that patient would need to qualify for [facility], discussed; patient does not qualify. Discussed private pay to family members or PRODUCTION MACHINE SHOP SUPERVISOR could provide contact for agencies that can provide correction care. Nereida may also discuss with [facility] nurse. Nereida has contact for [facility] if she would like further follow up. Patient Relations Coordinator will remain available. Addendum: 01/08/17 at 1018 by Teresa Salas LCSW Follow Up PRODUCTION MACHINE SHOP SUPERVISOR phoned and spoke with patient today. Patient stated she is feeling better since her visit to the ED on 01/06/17. She has filled her prescription for Zofran, but only needed one pill. Patient stated she still has not made a follow up appointment with her PCP, Dr Owens. PRODUCTION MACHINE SHOP SUPERVISOR stressed the importance of this appointment and offered to make the appointment. Patient stated she preferred to make the appointment herself. [facility] is due out to the home today. Patient or daughter will call Patient Relations Coordinator with any questions or concerns.
== END 2017-01-02 13:25 | disposition home health service (06) | DRG 374 ==
LOC: SED 15:46 → STU 18:10 → SMU 12-30 22:13
PROVIDERS: ADMIT Internal Medicine; ATTEND Internal Medicine
PROC: 30233N1 Transfusion of Nonautologous Red Blood Cells into Peripheral Vein, Percutaneous Approach (ICD-10-PCS; 2016-12-28)
PROC: 0DH63UZ Insertion of Feeding Device into Stomach, Percutaneous Approach (ICD-10-PCS; principal; 2016-12-30 13:30)
DX: C15.9 Malignant neoplasm of esophagus, unspecified (principal); E43 Unspecified severe protein-calorie malnutrition; C16.0 Malignant neoplasm of cardia; E87.6 Hypokalemia; E86.0 Dehydration; D63.8 Anemia in other chronic diseases classified elsewhere; Z51.5 Encounter for palliative care; R13.19 Other dysphagia; N28.89 Other specified disorders of kidney and ureter; K44.9 Diaphragmatic hernia without obstruction or gangrene; Z85.01 Personal history of malignant neoplasm of esophagus; Z80.8 Family history of malignant neoplasm of other organs or systems; Z80.49 Family history of malignant neoplasm of other genital organs
CPT/HCPCS: 36415; 71010; 71250-TC; 80048; 80053; 80061; 81000-TC; 82150-TC; 82962; 83690-TC; 83735-TC; 84100-TC; 85007; 85025; 85027; 85610-TC; 85730-TC; 86886; 86900; 86901; 86920; 87081; 92610-GN; 96360; 99285; J0610; J0690; J1170; J1815; J1885; J2001; J2270; J2405; J2704; J3475; J3480; J7030; J7040; J7050; J7131; J8597; P9021; Q9967

== ENCOUNTER 2017-01-06 15:12 | Emergency (ER) | payer OTHER, MEDICARE ==
[~2017-01-06] VITALS: Ht 160 cm; Wt 49.9 kg
[2017-01-06 15:40] VITALS: BP_SYST 150
--- NOTE | 2017-01-06 15:45 | NUR ---
Pt placed to ER waiting room in stable condition. No active vomiting noted at this time.
--- NOTE | 2017-01-06 16:13 | NUR ---
Patient to ER bed 2 to gown for evaluation. Side rails up. Report given to KHRIS Alfonso.
--- NOTE | 2017-01-06 16:15 | NUR ---
Pt brought by family, A&Ox4, pt present to ER with nausea and vomiting for the last 26 hours , Newly placed G-Tube placement on 12/30/2016. pt pale Hx of esophageal cancer,pt NPO, VSS, cap refill <3, respirations even and unlabored.
--- NOTE | 2017-01-06 17:52 | NUR ---
Dr Broderick at bedside examining patient
[2017-01-06] MEDS ORDERED: NACL 0.9% 1,000 ML IV ONE (18:06)
[2017-01-06] MEDS ORDERED: ONDANSETRON HCL 4 MG/2 ML VIAL IVP ONE (18:15)
[2017-01-06 18:30] LABS: BILIRUBIN,URINE NEGATIVE (NEGATIVE); BLOOD, URINE NEGATIVE (NEGATIVE); CLARITY/URINE SL HAZY (CLEAR); COLOR,URINE YELLOW (YELLOW); GLUCOSE,URINE NEGATIVE (NEGATIVE); KETONES,URINE NEGATIVE (NEGATIVE); LEUKOCYTE ESTERASE ,URINE NEGATIVE (NEGATIVE); NITRITE, URINE NEGATIVE (NEGATIVE); PROTEIN URINE NEGATIVE (NEGATIVE); UROBILINOGEN,URINE 0.2 (0.2-1.0)
[2017-01-06 18:42] LABS: BASOPHILS % (AUTO) 0.6 % (0.0-2.0); EOSINOPHILS # (AUTO) 0.1 K/uL (0.0-0.4); EOSINOPHILS % (AUTO) 1.8 % (0.0-4.0); HEMOGLOBIN 9.7 g/dL (12.0-16.0); LYMPHOCYTES # (AUTO) 0.9 K/uL (1.0-5.5); LYMPHOCYTES % (AUTO) 12.9 % (20.5-51.5); MEAN CORPUSCULAR HEMOGLOBIN 28 pg (27-31); MEAN CORPUSCULAR HGB CONC 34 % (32-36); MEAN CORPUSCULAR VOLUME 84 fL (79.0-98.0); MONOCYTES # (AUTO) 0.5 K/uL (0.0-1.0); MONOCYTES % (AUTO) 7.7 % (1.7-9.3); NEUTROPHILS # (AUTO) 5.5 K/uL (1.8-7.7); PLATELET COUNT (AUTO) 353 K/uL (130-430); RED BLOOD CELL COUNT(AUTO) 3.47 MIL/uL (4.2-6.2); RED CELL DISTRIBUTION WIDTH 14.6 % (9.0-15.0)
--- NOTE | 2017-01-06 18:42 | NUR ---
Pt ambulated to bathroom, pt on stable condition, family at bedside.
[2017-01-06 18:43] LABS: BACTERIA,URINE FEW /HPF (None Seen); RBC,URINE 0-3 /HPF (0-3); URINE AMORPHOUS PHOSPHATES 3+ /HPF (None Seen); WBC,URINE 0-3 /HPF (0-3)
--- NOTE | 2017-01-06 18:50 | NUR ---
Pt on stable condition, report given to Solomon PINEDO
[2017-01-06 18:52] LABS: CALCIUM 8.8 mg/dL (8.4-11.0); CREATININE 0.62 mg/dL (0.55-1.30); POTASSIUM 3.2 mmol/L (3.5-5.1)
[2017-01-06 18:58] LABS: ALBUMIN 2.9 g/dL (3.4-4.8); TOTAL BILIRUBIN 0.4 mg/dL (0.0-1.0); TOTAL PROTEIN, SERUM 6.6 g/dL (6.4-8.3)
[2017-01-06] MEDS ORDERED: DIATR MEGLU/DIATRIZ SOD 30 ML SOLUTION PO ONE (19:12)
--- NOTE | 2017-01-06 19:28 | NUR ---
G tube placement confirmed by stethescope and residual gastric contents. Administered G tube contrast in intervals and confirmed allergies beforehand.
--- NOTE | 2017-01-06 20:43 | NUR ---
Pt is resting comfortably. VSS. Denies any N or V. Will continue to monitor. No other injuries or complaints mentioned/noted.
[2017-01-06 22:38] VITALS: BP_SYST 138
--- NOTE | 2017-01-06 22:38 | NUR ---
Patient given written and verbal discharge instructions and verbalizes understanding. ER MD discussed with patient the results and treatment provided. Given copies of tests performed in ER. Patient in stable condition. ID arm band removed. IV catheter removed intact and dressing applied, no active bleeding. Rx of Zofran given. Patient educated on pain management and to follow up with PMD. Pain Scale 0/10. Opportunity for questions provided and answered.
== END 2017-01-06 22:38 | disposition home or self-care (01) ==
LOC: SED 15:12
DX: R11.10 Vomiting, unspecified (principal); R13.10 Dysphagia, unspecified; C15.9 Malignant neoplasm of esophagus, unspecified
CPT/HCPCS: 36415; 74176; 80053; 81000; 83690; 85025; 96361; 96374; 99285; J2405; J7030; Q9964

== ENCOUNTER 2017-02-13 14:27 | Inpatient (IN) | payer OTHER, MEDICARE ==
[~2017-02-13] VITALS: Ht 160 cm; Wt 45.8 kg
[2017-02-13 14:30] VITALS: BP_SYST 119
[2017-02-13 15:41] LABS: BILIRUBIN,URINE NEGATIVE (NEGATIVE); BLOOD, URINE NEGATIVE (NEGATIVE); CLARITY/URINE CLEAR (CLEAR); COLOR,URINE YELLOW (YELLOW); GLUCOSE,URINE NEGATIVE (NEGATIVE); KETONES,URINE NEGATIVE (NEGATIVE); LEUKOCYTE ESTERASE ,URINE TRACE (NEGATIVE); NITRITE, URINE NEGATIVE (NEGATIVE); PH,URINE 6.5 (5.0-8.0); PROTEIN URINE NEGATIVE (NEGATIVE); UROBILINOGEN,URINE 0.2 (0.2-1.0)
[2017-02-13 16:06] LABS: INR 0.9 (0.8-1.2); PROTHROMBIN TIME 9.5 SECS (9.5-12.5)
[2017-02-13 16:09] LABS: BASOPHILS # (AUTO) 0.1 K/uL (0.0-0.2); BASOPHILS % (AUTO) 0.6 % (0.0-2.0); CALCIUM 8.7 mg/dL (8.4-11.0); CREATININE 0.52 mg/dL (0.55-1.30); EOSINOPHILS # (AUTO) 0.1 K/uL (0.0-0.4); EOSINOPHILS % (AUTO) 0.7 % (0.0-4.0); LYMPHOCYTES # (AUTO) 1.1 K/uL (1.0-5.5); LYMPHOCYTES % (AUTO) 12.1 % (20.5-51.5); MEAN CORPUSCULAR HEMOGLOBIN 31 pg (27-31); MEAN CORPUSCULAR HGB CONC 34 % (32-36); MEAN CORPUSCULAR VOLUME 92 fL (79.0-98.0); MONOCYTES # (AUTO) 0.6 K/uL (0.0-1.0); MONOCYTES % (AUTO) 6.4 % (1.7-9.3); NEUTROPHILS # (AUTO) 7.6 K/uL (1.8-7.7); NEUTROPHILS % (AUTO) 80.2 % (40.0-70.0); PLATELET COUNT (AUTO) 463 K/uL (130-430); RED CELL DISTRIBUTION WIDTH 17.7 % (9.0-15.0); WHITE BLOOD COUNT (AUTO) 9.5 K/uL (4.8-10.8)
[2017-02-13 16:15] LABS: RED BLOOD CELL COUNT(AUTO) 1.68 MIL/uL (4.2-6.2)
[2017-02-13 16:16] LABS: HEMATOCRIT 15.4 % (36-48)
[2017-02-13 16:26] LABS: ALBUMIN 3.1 g/dL (3.4-4.8); FREE T4 (FREE THYROXINE) 0.6 ng/dL (0.6-1.6); TOTAL BILIRUBIN 0.2 mg/dL (0.0-1.0); TOTAL PROTEIN, SERUM 6.6 g/dL (6.4-8.3)
[2017-02-13] MEDS ORDERED: MORPHINE 2 MG/ML INJ. SYRINGE IVP PRN (17:15)
[2017-02-13] MEDS ORDERED: ACETAMINOPHEN 650 MG/20.3 ML UDC GT PRN (17:15)
[2017-02-13] MEDS ORDERED: ONDANSETRON HCL 4 MG/2 ML VIAL IVP PRN (17:15)
[2017-02-13 17:29] LABS: IRON (SERUM) 36 mcg/dL (37-145); TOTAL IRON BIND. CAPACITY 350 ug/dL (250-450)
[2017-02-13 17:45] VITALS: BP_SYST 125
[2017-02-13] MEDS: AMPICILLIN SODIUM/SULBACTAM NA 1.5 GM in NS 50 ML IV SCH (18:15)
[2017-02-13 19:15] VITALS: BP_SYST 120
[2017-02-14 00:22] VITALS: BP_SYST 104
[2017-02-14] MEDS: AMPICILLIN SODIUM/SULBACTAM NA 1.5 GM in NS 50 ML IV SCH ×3 (01:59→12:54)
[2017-02-14 04:00] VITALS: BP_SYST 122
[2017-02-14 06:45] LABS: BASOPHILS # (AUTO) 0.1 K/uL (0.0-0.2); BASOPHILS % (AUTO) 0.7 % (0.0-2.0); EOSINOPHILS # (AUTO) 0.1 K/uL (0.0-0.4); EOSINOPHILS % (AUTO) 0.7 % (0.0-4.0); HEMATOCRIT 25.7 % (36-48); HEMOGLOBIN 8.4 g/dL (12.0-16.0); MEAN CORPUSCULAR HEMOGLOBIN 29 pg (27-31); MEAN CORPUSCULAR HGB CONC 33 % (32-36); MEAN CORPUSCULAR VOLUME 89 fL (79.0-98.0); MONOCYTES # (AUTO) 0.7 K/uL (0.0-1.0); MONOCYTES % (AUTO) 6.9 % (1.7-9.3); NEUTROPHILS # (AUTO) 8.1 K/uL (1.8-7.7); NEUTROPHILS % (AUTO) 81.7 % (40.0-70.0); PLATELET COUNT (AUTO) 391 K/uL (130-430); RED BLOOD CELL COUNT(AUTO) 2.89 MIL/uL (4.2-6.2); RED CELL DISTRIBUTION WIDTH 18.3 % (9.0-15.0)
[2017-02-14 06:57] LABS: CALCIUM 8.8 mg/dL (8.4-11.0); CHLORIDE 106 mmol/L (98-107); CREATININE 0.59 mg/dL (0.55-1.30); GLUCOSE 120 mg/dL (70-99); LIPASE 303 U/L (73-393); POTASSIUM 3.9 mmol/L (3.5-5.1); SODIUM SERUM 136 mmol/L (136-145); UREA NITROGEN, BLOOD 21 mg/dL (8-21)
[2017-02-14 07:12] LABS: GFR AFRICAN AMERICAN 132 mL/min (>90)
[2017-02-14 07:15] LABS: ANION GAP < 3 (5-15)
[2017-02-14 08:56] VITALS: BP_SYST 114
[2017-02-14] MEDS ORDERED: GASTROGRAFIN 120 ML ONE (12:03)
[2017-02-14 12:31] VITALS: BP_SYST 132
[2017-02-14] MEDS: NEOMY SULF/BACITRAC ZN/POLY 14.2 GM OINT..GM. TP SCH (12:55)
[2017-02-14] MEDS ORDERED: IRON DEXTRAN COMPLEX 25 MG in NS 50 ML IV ONE (15:00)
[2017-02-14 17:03] VITALS: BP_SYST 117
[2017-02-14] MEDS ORDERED: IRON DEXTRAN COMPLEX 1,000 MG in NS 500 ML IV ONE (18:00)
[2017-02-14 19:52] VITALS: BP_SYST 129
[2017-02-15 01:07] VITALS: BP_SYST 132
[2017-02-15 04:07] VITALS: BP_SYST 112
[2017-02-15 07:11] LABS: BASOPHILS % (AUTO) 0.6 % (0.0-2.0); EOSINOPHILS # (AUTO) 0.1 K/uL (0.0-0.4); EOSINOPHILS % (AUTO) 1.3 % (0.0-4.0); HEMATOCRIT 28.3 % (36-48); HEMOGLOBIN 9.4 g/dL (12.0-16.0); LYMPHOCYTES # (AUTO) 1.1 K/uL (1.0-5.5); LYMPHOCYTES % (AUTO) 14.2 % (20.5-51.5); MEAN CORPUSCULAR HEMOGLOBIN 30 pg (27-31); MEAN CORPUSCULAR HGB CONC 33 % (32-36); MEAN CORPUSCULAR VOLUME 89 fL (79.0-98.0); MONOCYTES # (AUTO) 0.7 K/uL (0.0-1.0); MONOCYTES % (AUTO) 8.5 % (1.7-9.3); NEUTROPHILS # (AUTO) 6.1 K/uL (1.8-7.7); NEUTROPHILS % (AUTO) 75.4 % (40.0-70.0); PLATELET COUNT (AUTO) 325 K/uL (130-430); RED BLOOD CELL COUNT(AUTO) 3.17 MIL/uL (4.2-6.2)
[2017-02-15 07:50] LABS: CALCIUM 8.4 mg/dL (8.4-11.0); CREATININE 0.5 mg/dL (0.55-1.30)
[2017-02-15 08:21] VITALS: BP_SYST 120
[2017-02-15] MEDS ORDERED: DIBUCAINE TP SCH (09:00)
[2017-02-15] MEDS ORDERED: PHENYLEPH/MINERAL OIL/PETROLAT 45 GM OINT.APPL TP SCH (09:00)
[2017-02-15] MEDS: NEOMY SULF/BACITRAC ZN/POLY 14.2 GM OINT..GM. TP SCH (10:15)
[2017-02-15 12:18] VITALS: BP_SYST 118
[2017-02-15 14:41] VITALS: BP_SYST 118
[2017-02-15 16:23] VITALS: BP_SYST 120
[2017-02-16 13:28] LABS: HEMOGLOBIN 5.2 g/dL (12.0-16.0)
== END 2017-02-15 15:35 | disposition home or self-care (01) | DRG 394 ==
LOC: SED 14:27 → STU 16:41 → SMU 02-14 15:00
PROVIDERS: ADMIT Internal Medicine; ATTEND Internal Medicine
PROC: 30233N1 Transfusion of Nonautologous Red Blood Cells into Peripheral Vein, Percutaneous Approach (ICD-10-PCS; principal; 2017-02-13)
DX: K94.22 Gastrostomy infection (principal); C15.9 Malignant neoplasm of esophagus, unspecified; L03.311 Cellulitis of abdominal wall; D50.9 Iron deficiency anemia, unspecified; R13.19 Other dysphagia; Z53.29 Procedure and treatment not carried out because of patient's decision for other reasons
CPT/HCPCS: 36415; 71010; 74000-TC; 80048; 80053; 81003; 82306; 82607; 83540-TC; 83550-TC; 83605; 83690-TC; 83880; 84439; 84484; 85025; 85610-TC; 86886; 86900; 86901; 86920; 87040-TC; 93005; 99285; J0295; J1750; J2405; J7040; J7050; P9021; Q9963

== ENCOUNTER 2017-02-23 15:21 | Outpatient (CLI) | payer OTHER, MEDICARE ==
[2017-02-23 16:15] LABS: BASOPHILS # (AUTO) 0.1 K/uL (0.0-0.2); BASOPHILS % (AUTO) 0.7 % (0.0-2.0); EOSINOPHILS # (AUTO) 0.1 K/uL (0.0-0.4); EOSINOPHILS % (AUTO) 0.6 % (0.0-4.0); LYMPHOCYTES # (AUTO) 1.4 K/uL (1.0-5.5); LYMPHOCYTES % (AUTO) 13.6 % (20.5-51.5); MEAN CORPUSCULAR HEMOGLOBIN 32 pg (27-31); MEAN CORPUSCULAR HGB CONC 34 % (32-36); MEAN CORPUSCULAR VOLUME 96 fL (79.0-98.0); MONOCYTES # (AUTO) 0.6 K/uL (0.0-1.0); NEUTROPHILS # (AUTO) 8.3 K/uL (1.8-7.7); NEUTROPHILS % (AUTO) 79.1 % (40.0-70.0); PLATELET COUNT (AUTO) 424 K/uL (130-430); RED CELL DISTRIBUTION WIDTH 19.1 % (9.0-15.0); WHITE BLOOD COUNT (AUTO) 10.5 K/uL (4.8-10.8)
[2017-02-23 16:21] LABS: RED BLOOD CELL COUNT(AUTO) 1.79 MIL/uL (4.2-6.2)
[2017-02-23 16:27] LABS: CHLORIDE 98 mmol/L (98-107); CREATININE 0.58 mg/dL (0.55-1.30); GLUCOSE 118 mg/dL (70-99); POTASSIUM 4.1 mmol/L (3.5-5.1); SODIUM SERUM 132 mmol/L (136-145); UREA NITROGEN, BLOOD 30 mg/dL (8-21)
[2017-02-23 16:32] LABS: ALANINE AMINOTRANSFERASE 42 U/L (12-78); ALBUMIN 3.1 g/dL (3.4-4.8); ASPARTATE AMINOTRANSFERASE 25 U/L (10-37); TOTAL BILIRUBIN 0.1 mg/dL (0.0-1.0); TOTAL PROTEIN, SERUM 6.5 g/dL (6.4-8.3)
[2017-02-23 16:33] LABS: ANION GAP < 3 (5-15); GFR AFRICAN AMERICAN 134 mL/min (>90)
[2017-02-23 16:41] LABS: HEMOGLOBIN 5.7 g/dL (12.0-16.0)
[2017-02-23 16:42] LABS: HEMATOCRIT 17.1 % (36-48)
== END 2017-02-23 20:27 | disposition home or self-care (01) ==
LOC: SLB 15:21
PROVIDERS: ATTEND Internal Medicine
DX: R58 Hemorrhage, not elsewhere classified (principal)
CPT/HCPCS: 36415; 80053; 85025; 86886; 86900; 86901

== ENCOUNTER 2017-02-23 18:03 | Inpatient (IN) | payer OTHER, MEDICARE ==
[~2017-02-23] VITALS: Ht 157.5 cm; Wt 46.7 kg
[2017-02-23 19:33] VITALS: BP_SYST 109
[2017-02-23 19:45] VITALS: BP_SYST 109
[2017-02-23] MEDS ORDERED: NACL 0.9% 1,000 ML IV SCH (20:30)
[2017-02-24 01:23] VITALS: BP_SYST 116
[2017-02-24 04:30] VITALS: BP_SYST 104
[2017-02-24 08:09] VITALS: BP_SYST 107
[2017-02-24 12:24] VITALS: BP_SYST 97
[2017-02-24 13:28] LABS: BASOPHILS # (AUTO) 0.1 K/uL (0.0-0.2); BASOPHILS % (AUTO) 0.7 % (0.0-2.0); EOSINOPHILS # (AUTO) 0.1 K/uL (0.0-0.4); MONOCYTES # (AUTO) 0.5 K/uL (0.0-1.0); RED CELL DISTRIBUTION WIDTH 17.4 % (9.0-15.0)
[2017-02-24 13:33] LABS: EOSINOPHILS % (AUTO) 0.8 % (0.0-4.0); HEMATOCRIT 25.2 % (36-48); HEMOGLOBIN 8.5 g/dL (12.0-16.0); LYMPHOCYTES % (AUTO) 10.5 % (20.5-51.5); MEAN CORPUSCULAR HEMOGLOBIN 30 pg (27-31); MEAN CORPUSCULAR HGB CONC 34 % (32-36); MEAN CORPUSCULAR VOLUME 90 fL (79.0-98.0); MONOCYTES % (AUTO) 5.6 % (1.7-9.3); NEUTROPHILS # (AUTO) 7.5 K/uL (1.8-7.7); NEUTROPHILS % (AUTO) 82.4 % (40.0-70.0); PLATELET COUNT (AUTO) 339 K/uL (130-430); WHITE BLOOD COUNT (AUTO) 9.2 K/uL (4.8-10.8)
[2017-02-24 16:00] VITALS: BP_SYST 132
[2017-02-24 19:33] VITALS: BP_SYST 128
== END 2017-02-24 20:02 | disposition home or self-care (01) | DRG 375 ==
LOC: SMU 18:11
PROVIDERS: ADMIT Internal Medicine; ATTEND Internal Medicine
PROC: 30233N1 Transfusion of Nonautologous Red Blood Cells into Peripheral Vein, Percutaneous Approach (ICD-10-PCS; principal; 2017-02-24)
DX: C15.9 Malignant neoplasm of esophagus, unspecified (principal); K92.2 Gastrointestinal hemorrhage, unspecified; D62 Acute posthemorrhagic anemia; D63.8 Anemia in other chronic diseases classified elsewhere; R13.10 Dysphagia, unspecified; Z53.29 Procedure and treatment not carried out because of patient's decision for other reasons; Z93.1 Gastrostomy status
CPT/HCPCS: 36415; 85025; 86886; 86900; 86901; 86920; 87081; J7030; J7040; P9021

== ENCOUNTER 2017-03-03 12:26 | Outpatient (RCR) | payer OTHER, MEDICARE ==
[2017-02-14 10:26] VITALS: BMI 17.9
[2017-03-03 13:02] LABS: BASOPHILS % (AUTO) 0.6 % (0.0-2.0); EOSINOPHILS % (AUTO) 0.6 % (0.0-4.0); LYMPHOCYTES # (AUTO) 0.9 K/uL (1.0-5.5); LYMPHOCYTES % (AUTO) 11.3 % (20.5-51.5); MEAN CORPUSCULAR HEMOGLOBIN 32 pg (27-31); MEAN CORPUSCULAR HGB CONC 34 % (32-36); MEAN CORPUSCULAR VOLUME 94 fL (79.0-98.0); MONOCYTES # (AUTO) 0.5 K/uL (0.0-1.0); MONOCYTES % (AUTO) 6.3 % (1.7-9.3); NEUTROPHILS # (AUTO) 6.8 K/uL (1.8-7.7); NEUTROPHILS % (AUTO) 81.2 % (40.0-70.0); PLATELET COUNT (AUTO) 437 K/uL (130-430); RED CELL DISTRIBUTION WIDTH 18.3 % (9.0-15.0); WHITE BLOOD COUNT (AUTO) 8.2 K/uL (4.8-10.8)
[2017-03-03 13:04] LABS: RED BLOOD CELL COUNT(AUTO) 1.93 MIL/uL (4.2-6.2)
[2017-03-03 13:29] LABS: HEMOGLOBIN 6.1 g/dL (12.0-16.0)
[2017-03-03 13:30] LABS: HEMATOCRIT 18.1 % (36-48)
[2017-03-04] MEDS ORDERED: FERR1GRA GT (16:39)
[2017-03-04] MEDS ORDERED: FERR750V IV (16:39)
[2017-03-04] MEDS ORDERED: FER300L GT (16:41)
[2017-03-04] MEDS ORDERED: MULT240L3 GT (16:42)
== END 2017-03-04 | disposition home or self-care (01) ==
LOC: SLB 12:26 → EDSTATUS 03-04 06:44
PROVIDERS: ATTEND Internal Medicine
DX: C15.9 Malignant neoplasm of esophagus, unspecified (principal)
CPT/HCPCS: 36415; 85025

== ENCOUNTER 2017-03-03 14:09 | Inpatient (IN) | payer OTHER, MEDICARE ==
[~2017-03-03] VITALS: Ht 157.5 cm; Wt 50.8 kg
[2017-03-03 18:45] VITALS: BP_SYST 118
[2017-03-03 18:48] VITALS: BP_SYST 104
[2017-03-03 19:30] VITALS: BP_SYST 118
[2017-03-03] MEDS ORDERED: ACETAMINOPHEN 650 MG/20.3 ML UDC GT PRN (19:45)
[2017-03-03] MEDS ORDERED: DIPHENHYDRAMINE INJ 50 MG/ML VIAL IVP PRN (19:45)
[2017-03-03] MEDS ORDERED: SOD FERRIC GLUC COMPLEX/SUC 125 MG in NS 100 ML IV SCH (19:45)
[2017-03-03] MEDS ORDERED: MVI 10 ML VIAL IV ONE (20:56)
[2017-03-03] MEDS ORDERED: SOD FERRIC GLUC COMPLEX/SUC 62.5 MG/5 ML VIAL (FERRLECIT) IV ONE (20:58)
[2017-03-03] MEDS: MVI 10 ML in D5LR 1,000 ML IV SCH (21:27)
[2017-03-04] VITALS (7 sets, daily range): BP systolic 108–134
[2017-03-04 06:23] LABS: BASOPHILS % (AUTO) 0.6 % (0.0-2.0); EOSINOPHILS # (AUTO) 0.1 K/uL (0.0-0.4); EOSINOPHILS % (AUTO) 1.2 % (0.0-4.0); HEMATOCRIT 25.1 % (36-48); HEMOGLOBIN 8.2 g/dL (12.0-16.0); LYMPHOCYTES # (AUTO) 0.8 K/uL (1.0-5.5); LYMPHOCYTES % (AUTO) 9.7 % (20.5-51.5); MEAN CORPUSCULAR HEMOGLOBIN 30 pg (27-31); MEAN CORPUSCULAR HGB CONC 33 % (32-36); MEAN CORPUSCULAR VOLUME 90 fL (79.0-98.0); MONOCYTES # (AUTO) 0.5 K/uL (0.0-1.0); NEUTROPHILS # (AUTO) 6.7 K/uL (1.8-7.7); NEUTROPHILS % (AUTO) 82.5 % (40.0-70.0); PLATELET COUNT (AUTO) 378 K/uL (130-430); RED BLOOD CELL COUNT(AUTO) 2.79 MIL/uL (4.2-6.2); RED CELL DISTRIBUTION WIDTH 18.5 % (9.0-15.0); WHITE BLOOD COUNT (AUTO) 8.1 K/uL (4.8-10.8)
[2017-03-04 06:31] LABS: ALBUMIN 2.4 g/dL (3.4-4.8); CALCIUM 8.5 mg/dL (8.4-11.0); CREATININE 0.58 mg/dL (0.55-1.30); POTASSIUM 3.6 mmol/L (3.5-5.1); TOTAL BILIRUBIN 0.3 mg/dL (0.0-1.0); TOTAL PROTEIN, SERUM 5.3 g/dL (6.4-8.3)
[2017-03-04] MEDS ORDERED: SOD FERRIC GLUC COMPLEX/SUC 125 MG in NS 100 ML IV SCH ×2 (12:00→14:00)
[2017-03-04] MEDS: MVI 10 ML in D5LR 1,000 ML IV SCH (12:35)
[2017-03-04] MEDS ORDERED: FERR750V IV (16:39)
[2017-03-04] MEDS ORDERED: FERR1GRA GT (16:39)
[2017-03-04] MEDS ORDERED: FER300L GT (16:41)
[2017-03-04] MEDS ORDERED: MULT240L3 GT (16:42)
== END 2017-03-04 20:20 | disposition home health service (06) | DRG 374 ==
LOC: SMU 18:19
PROVIDERS: ADMIT Internal Medicine; ATTEND Internal Medicine
PROC: 30233N1 Transfusion of Nonautologous Red Blood Cells into Peripheral Vein, Percutaneous Approach (ICD-10-PCS; principal; 2017-03-03)
DX: C15.9 Malignant neoplasm of esophagus, unspecified (principal); E43 Unspecified severe protein-calorie malnutrition; D62 Acute posthemorrhagic anemia; R13.10 Dysphagia, unspecified; Z93.1 Gastrostomy status; Z68.20 Body mass index [BMI] 20.0-20.9, adult
CPT/HCPCS: 36415; 80053; 85025; 86886; 86900; 86901; 86920; 87081; J2916; J7050; J7120; P9021

== ENCOUNTER 2017-03-10 17:47 | Inpatient (IN) | payer OTHER, MEDICARE ==
[~2017-03-10] VITALS: Ht 160 cm; Wt 46.3 kg
[~2017-03-10 17:47] MED LIST changes: -CEFAZOLIN 1 GM IVPB PREMIX 50 ML IV ONE; +FER300L GT; -KETOROLAC TROMETHAMINE 30 MG VIAL IVP ONE; +MULT240L3 GT; -PROPOFOL 200MG/ 20ML VIAL (DIPRIVAN) IV ONE; -ROCURONIUM BROMIDE 10 MG/ML (ZEMURON) IV ONE; -SEVOFLURANE 15 MIN GAS INH ONE
--- NOTE | 2017-03-10 17:59 | NUR ---
Patient to ER bed 05 to gown for evaluation. Side rails up.
[2017-03-10 18:00] VITALS: BP_SYST 118
--- NOTE | 2017-03-10 18:07 | NUR ---
Patient is brought in by daughter. Daughter reports that patient has been having shortness of breath since 10 am today with generalized weakness. Patient is ALOC x 4. Denies any pain. Patient's lungs are clear, 99 % on Room Air. No distress noted at this time. No other complaints/injuries per patient or as noted.
--- NOTE | 2017-03-10 18:11 | NUR ---
Dr. Qureshi at bedside.
[2017-03-10 18:43] LABS: BASOPHILS # (AUTO) 0.1 K/uL (0.0-0.2); BASOPHILS % (AUTO) 0.7 % (0.0-2.0)
[2017-03-10 18:46] LABS: EOSINOPHILS % (AUTO) 0.5 % (0.0-4.0); LYMPHOCYTES # (AUTO) 1.2 K/uL (1.0-5.5); LYMPHOCYTES % (AUTO) 12.8 % (20.5-51.5); MEAN CORPUSCULAR HEMOGLOBIN 31 pg (27-31); MEAN CORPUSCULAR HGB CONC 34 % (32-36); MEAN CORPUSCULAR VOLUME 93 fL (79.0-98.0); MONOCYTES # (AUTO) 0.5 K/uL (0.0-1.0); MONOCYTES % (AUTO) 5.6 % (1.7-9.3); NEUTROPHILS # (AUTO) 7.2 K/uL (1.8-7.7); NEUTROPHILS % (AUTO) 80.4 % (40.0-70.0); PLATELET COUNT (AUTO) 328 K/uL (130-430); RED BLOOD CELL COUNT(AUTO) 1.56 MIL/uL (4.2-6.2); RED CELL DISTRIBUTION WIDTH 17.8 % (9.0-15.0); WHITE BLOOD COUNT (AUTO) 9.1 K/uL (4.8-10.8)
[2017-03-10 18:49] LABS: HEMOGLOBIN 4.9 g/dL (12.0-16.0)
[2017-03-10 18:50] LABS: HEMATOCRIT 14.5 % (36-48)
[2017-03-10 18:52] LABS: INR 0.9 (0.8-1.2); PROTHROMBIN TIME 10.1 SECS (9.5-12.5)
[2017-03-10 18:53] LABS: CALCIUM 8.6 mg/dL (8.4-11.0); CREATININE 0.53 mg/dL (0.55-1.30); POTASSIUM 3.6 mmol/L (3.5-5.1)
[2017-03-10 18:58] LABS: ALBUMIN 2.5 g/dL (3.4-4.8); TOTAL BILIRUBIN 0.1 mg/dL (0.0-1.0); TOTAL PROTEIN, SERUM 5.6 g/dL (6.4-8.3)
[2017-03-10] MEDS ORDERED: PANTOPRAZOLE SODIUM 80 MG in NS 100 ML IV ONE (19:45)
[2017-03-10] MEDS ORDERED: ACETAMINOPHEN 650 MG/20.3 ML UDC PO PRN (20:00)
[2017-03-10] MEDS ORDERED: DIPHENHYDRAMINE INJ 50 MG/ML VIAL IVP PRN (20:00)
--- NOTE | 2017-03-10 20:19 | NUR ---
Patient will be admitted to care of Dr. Coffey. Admitted to Telemetry unit. Will go to room 111 B. Belongings list completed. Summary report printed. Report will be given at bedside.
--- NOTE | 2017-03-10 20:19 | NUR ---
ADMISSION: The patient, SHERIDAN BARRETT, 67 y/o, F admitted by HIMANSHU BELLAMY MD, was given written information regarding hospital policies, unit procedures and contact persons. Valuables were checked and pt was oriented to her room and surroundings.
[2017-03-10 20:25] VITALS: BP_SYST 116
[2017-03-10 20:39] VITALS: BP_SYST 116
--- NOTE | 2017-03-10 20:45 | NUR ---
OPENING NOTES PATIENT IS A/OX4. NO SIGNS OF DISTRESS. BREATHING IS NON LABORED. VITAL SIGNS ARE STABLE. PATIENT HAS NO COMPLAINTS OF PAIN. PATIENT EDUCATE ON THE NEED FOR BLOOD TRANSFUSION. PATIENT AGREES. BEDSIDE COMMODE PLACED AT BEDSIDE. PATIENT INSTRUCTED TO CALL FOR ASSISTANCE. PATIENT VERBALIZED UNDERSTANDING. CALL LIGHT IS WITHIN REACH. BED ALARM IS ON. WILL CONTINUE TO MONITOR.
[2017-03-10] MEDS: MULTIVITS W-MIN/FERROUS GLUC 15 ML UDC GT SCH (21:00)
--- NOTE | 2017-03-10 22:25 | NUR ---
G-TUBE RESIDUAL PATIENT HAD 100ML OF BLACK RESIDUAL.
[2017-03-10] MEDS: FERROUS SULFATE 300 MG/5 ML UDC GT SCH (22:42)
[2017-03-10] MEDS ORDERED: PANTOPRAZOLE SODIUM 40 MG/VIAL (PROTONIX) ONE ×2 (22:49)
--- NOTE | 2017-03-10 23:11 | NUR ---
PRE BLOOD TRANSFUSION VITAL SIGNS T=99.3 HR=94 RR=15 02=97% ROOM AIR KU=550/61
[2017-03-10 23:14] VITALS: BP_SYST 100
--- NOTE | 2017-03-10 23:15 | NUR ---
BT INITIATION: Consent signed per patient agreeing to administration of blood. Blood has been type and crossmatched. Blood sent from blood bank. Information on unit of blood checked against patient wristband at bedside by two nurses. All information matches. Patient or responsible alliance party informed of potential complications associated with blood transfusion. Informed of possible transfusion reaction symptoms. Aware of need to notify nurse at once of itching, shortness of breath, flushing, feeling of impending doom, or other symptoms not previously present. Vital signs taken within 5 minutes prior to initiation of transfusion. RN will remain with patient for first 15 minutes of transfusion at which time vital signs will be re-assessed.
--- NOTE | 2017-03-10 23:30 | NUR ---
15MIN POST STARTING OF BLOOD TRANSFUSION 15 MIN POST STARTING OF BLOOD TRANSFUSION. PATIENT HAS NO ADVERSE REACTION. PATIENT IS SLEEPING COMFORTABLY IN BED. BED ALARM IS ON. CALL LIGHT IS WITHIN REACH. WILL CONTINUE TO MONITOR. RT=518/59 HR=89 02= 100% RM RR=16T=98.9
[2017-03-11] MEDS: NACL 0.9% 1,000 ML IV SCH (00:02)
[2017-03-11] MEDS ORDERED: PANTOPRAZOLE SODIUM 40 MG/VIAL (PROTONIX) ONE ×5 (00:22→06:36)
--- NOTE | 2017-03-11 00:51 | NUR ---
ROUNDS PATIENT IS IN BED SLEEPING. NO SIGNS OF DISTRESS. BREATHING IS NON LABORED. BED ALARM IS ON. CALL LIGHT IS AT PATIENT SIDE. IS IN RECLINER CHAIR SLEEPING. WILL CONTINUE TO MONITOR.
--- NOTE | 2017-03-11 01:50 | NUR ---
BLOOD TRANSFUSION ENDED BLOOD TRANSFUSION ENDED. PATIENT TOLERATED IT WELL. VITAL SIGNS T=98.7, HR= 75, RR=16, 02= 96%, BP= 106/56. WILL INFUSE 2ND UNIT.
[2017-03-11] MEDS: PANTOPRAZOLE SODIUM 40 MG in NS 50 ML IV SCH ×5 (02:07→21:12)
--- NOTE | 2017-03-11 02:40 | NUR ---
BT INITIATION: Consent signed per patient agreeing to administration of blood. Blood has been type and crossmatched. Blood sent from blood bank. Information on unit of blood checked against patient wristband at bedside by two nurses. All information matches. Patient or responsible green party informed of potential complications associated with blood transfusion. Informed of possible transfusion reaction symptoms. Aware of need to notify nurse at once of itching, shortness of breath, flushing, feeling of impending doom, or other symptoms not previously present. Vital signs taken within 5 minutes prior to initiation of transfusion. RN will remain with patient for first 15 minutes of transfusion at which time vital signs will be re-assessed. Vital signs T= 98.8 HR=76 RR=16 O2= 98% RM RG=161/55
--- NOTE | 2017-03-11 02:55 | NUR ---
15MIN POST STARTING OF BLOOD TRANSFUSION 15 MIN POST STARTING OF BLOOD TRANSFUSION. PATIENT HAS NO ADVERSE REACTION. PATIENT IS SLEEPING COMFORTABLY IN BED. BED ALARM IS ON. CALL LIGHT IS WITHIN REACH. WILL CONTINUE TO MONITOR. SK=302/58 HR=82 02= 97% RM RR=15 T=98.6
--- NOTE | 2017-03-11 03:47 | NUR ---
ROUNDS PATIENT IS IN BED SLEEPING. NO SIGNS OF DISTRESS. BREATHING IS NON LABORED. BLOOD IS TRANSFUSING. BED ALARM IS ON. CALL LIGHT IS WITHIN REACH. WILL CONTINUE TO MONITOR.
--- NOTE | 2017-03-11 05:10 | NUR ---
BLOOD TRANSFUSION ENDED BLOOD TRANSFUSION IS COMPLETE. PATIENT TOLERATED IT WELL. NO ADVERSE REACTION. VITAL SIGNS: HR=76, T=98.6, NJ=740/56, 02=96%RM, RR= 15
[2017-03-11 05:57] VITALS: BP_SYST 110
--- NOTE | 2017-03-11 06:03 | NUR ---
BT INITIATION: Consent signed per patient agreeing to administration of blood. Blood has been type and crossmatched. Blood sent from blood bank. Information on unit of blood checked against patient wristband at bedside by two nurses. All information matches. Patient or responsible green party informed of potential complications associated with blood transfusion. Informed of possible transfusion reaction symptoms. Aware of need to notify nurse at once of itching, shortness of breath, flushing, feeling of impending doom, or other symptoms not previously present. Vital signs taken within 5 minutes prior to initiation of transfusion. RN will remain with patient for first 15 minutes of transfusion at which time vital signs will be re-assessed. Vital signs: T=97.1 HR=72 RR=16 02= 98% RM AI=565/58
--- NOTE | 2017-03-11 06:18 | NUR ---
15MIN POST STARTING OF BLOOD TRANSFUSION 15 MIN POST STARTING OF BLOOD TRANSFUSION. PATIENT HAS NO ADVERSE REACTION. PATIENT IS SLEEPING COMFORTABLY IN BED. BED ALARM IS ON. CALL LIGHT IS WITHIN REACH. WILL CONTINUE TO MONITOR. DM=046/54 HR=75 02= 97% RM T=97.3 RR=15
--- NOTE | 2017-03-11 07:03 | NUR ---
CLOSING NOTES PATIENT IS IN BED SLEEPING. NO SIGNS OF DISTRESS. BREATHING IS NON LABORED. IV IS PATENT. BLOOD TRANSFUSION IS RUNNING. PROTONIX DRIP IS DRIPPING. ALL NEEDS ARE MET. WILL ENDORSE ALL CARE TO THE MORNING NURSE. CALL LIGHT IS WITHIN REACH. SAFETY MEASURES ARE IN PLACE. IS AT BEDSIDE.
[2017-03-11] MEDS ORDERED: PANTOPRAZOLE SODIUM 40 MG in NS 50 ML IV SCH (07:23)
--- NOTE | 2017-03-11 07:37 | NUR ---
COMMUNICATION WITH DR. BELLAMY SPOKE TO DR. BELLAMY TO INQUIRE IF HE WANTED TO REQUEST LAB TESTING. NO NEW ORDERS AT THIS TIME.
[2017-03-11 08:05] VITALS: BP_SYST 112
--- NOTE | 2017-03-11 08:13 | NUR ---
OPENING NOTE: RECEIVED REPORT FROM NIGHT NURSE. PATIENT IS RESTING COMFORTABLY IN BED. NO S/S OF DISTRESS OR SOB. PATIENT IS CURRENTLY RECEIVING BLOOD TRANSFUSION. PATIENT IS ALERT AND ORIENTED, ABLE TO EXPRESS NEEDS, AND ASK FOR ASSISTANCE. VITAL SIGNS WNL, ASSESSMENT COMPLETE. CALL LIGHT IN REACH, BED IN LOWEST POSITION, AND WILL CONTINUE TO MONITOR.
[2017-03-11] MEDS: FERROUS SULFATE 300 MG/5 ML UDC GT SCH ×3 (08:45→21:11)
[2017-03-11] MEDS: MULTIVITS W-MIN/FERROUS GLUC 15 ML UDC GT SCH ×2 (08:45→21:11)
--- NOTE | 2017-03-11 09:23 | NUR ---
Nutrition Update Dylan Scale 18 noted. Pt admitted for severe anemia. Diet: Peptamen 1.5 at 50 ml/hr, Free Water Flush: 100ML Q6H via GT BMI: 19.7 kg/m2 RD to follow per nutrition care standards.
--- NOTE | 2017-03-11 10:00 | NUR ---
Note: Patient is resting comfortably in bed. No s/s of distress or sob. Patient is alert and oriented, able to express needs, and ask for assistance. No needs at this time. Call light in reach, bed in lowest position, and will continue to monitor.
--- NOTE | 2017-03-11 12:00 | NUR ---
NOTE: PATIENT IS RESTING COMFORTABLY IN BED. NO S/S OF DISTRESS OR SOB. PATIENT IS AWAKE AND ALERT. FAMILY IS AT BEDSIDE. NO COMPLAINTS OR NEEDS ADDRESSED. CALL LIGHT IN REACH, BED IN LOWEST POSITION, AND WILL CONTINUE TO MONITOR.
[2017-03-11 12:23] VITALS: BP_SYST 130
[2017-03-11 12:23] LABS: BASOPHILS # (AUTO) 0.1 K/uL (0.0-0.2); BASOPHILS % (AUTO) 0.8 % (0.0-2.0); EOSINOPHILS % (AUTO) 0.5 % (0.0-4.0); HEMATOCRIT 25.6 % (36-48); HEMOGLOBIN 8.3 g/dL (12.0-16.0); LYMPHOCYTES # (AUTO) 0.9 K/uL (1.0-5.5); LYMPHOCYTES % (AUTO) 9.8 % (20.5-51.5); MEAN CORPUSCULAR HEMOGLOBIN 29 pg (27-31); MEAN CORPUSCULAR HGB CONC 33 % (32-36); MEAN CORPUSCULAR VOLUME 88 fL (79.0-98.0); MONOCYTES # (AUTO) 0.5 K/uL (0.0-1.0); MONOCYTES % (AUTO) 5.7 % (1.7-9.3); NEUTROPHILS # (AUTO) 7.3 K/uL (1.8-7.7); NEUTROPHILS % (AUTO) 83.2 % (40.0-70.0); PLATELET COUNT (AUTO) 293 K/uL (130-430); RED BLOOD CELL COUNT(AUTO) 2.91 MIL/uL (4.2-6.2); RED CELL DISTRIBUTION WIDTH 17.6 % (9.0-15.0); WHITE BLOOD COUNT (AUTO) 8.8 K/uL (4.8-10.8)
--- NOTE | 2017-03-11 14:21 | NUR ---
NOTE: PATIENT IS RESTING COMFORTABLY IN BED. NO S/S OF DISTRESS OR SOB. PATIENT IS AWAKE AND ALERT, ABLE TO EXPRESS NEEDS, AND ASK FOR ASSISTANCE. CALL LIGHT IN REACH, BED IN LOWEST POSITION, AND WILL AT BEDSIDE. CALL LIGHT IN REACH, BED IN LOWEST POSITION, AND WILL CONTINUE TO MONITOR.
[2017-03-11 16:00] VITALS: BP_SYST 129
--- NOTE | 2017-03-11 16:07 | NUR ---
NUCLEAR MEDICINE PATIENT TAKEN TO NUCLEAR MEDICINE FOR BLEEDING SCAN
--- NOTE | 2017-03-11 18:30 | NUR ---
PATIENT BACK FROM NUCLEAR MEDICINE. PATIENT IN STABLE CONDITION.
--- NOTE | 2017-03-11 18:45 | NUR ---
ORDERS SPOKE WITH DR. BELLAMY AND HE SAID TO TRANSFUSE 1 UNIT OF PRBC'S AND THAT PATIENT WILL NOT BE LEAVING TONIGHT AFTER ALL. FAMILY WAS NOTIFIED.
--- NOTE | 2017-03-11 19:02 | NUR ---
CLOSING NOTE: PATIENT IS RESTING COMFORTABLY IN BED. NO S/S OF DISTRESS OR SOB. PATIENT IS ALERT AND ORIENTED. IV IS PATENT AND INFUSING. FAMILY IS AT BEDSIDE. G-TUBE FEEDING IN PLACE. CALL LIGHT IN REACH, BED IN LOWEST POSITION, AND WILL GIVE REPORT TO NIGHT NURSE.
[2017-03-11 20:00] VITALS: BP_SYST 126
--- NOTE | 2017-03-11 20:00 | NUR ---
Initial Notes Received patient resting in bed, awake, alert, oriented, family at bedside. Patient denies any acute distress or pain. Vital signs stable. Breathing is even and unlabored on room air. IV sites patent/clean/dry. Patient tolerating GT feeding, residual 30ml, HOB elevated. Needs addressed. Educated patient on use of call light for assistance and fall precautions, patient verbalized understanding. Call light in hand, will continue to monitor.
--- NOTE | 2017-03-11 20:30 | NUR ---
Ordered PRBC Started PRBC transfusing per MD orders. Verified by Alonso PINEDO. Patient tolerating well, no adverse effects reported, VSS, will continue to monitor. GT dressing changed due to soiling, patient tolerated well.
--- NOTE | 2017-03-11 22:00 | NUR ---
Rounds Patient resting in bed, awake, at bedside. Patient denies any acute distress or pain at this time. Breathing is even and unlabored. IV site patent/clean/dry. PRBC transfusing per MD order, patient tolerating well. Needs addressed. Call light in hand, will continue to monitor.
--- NOTE | 2017-03-11 23:15 | NUR ---
PRBC Transfusion Completed Transfusion completed. No adverse affects reported/noted. Vital signs stable.
[2017-03-12] VITALS: BP_SYST 127
--- NOTE | 2017-03-12 | NUR ---
Rounds Patient resting in bed with eyes closed, easily aroused, at bedside. Patient denies any acute distress or pain at this time. Breathing is even and unlabored. IV site patent/clean/dry. Needs addressed. Call light in hand, will continue to monitor.
[2017-03-12] MEDS: PANTOPRAZOLE SODIUM 40 MG in NS 50 ML IV SCH ×3 (01:49→12:21)
[2017-03-12] MEDS: NACL 0.9% 1,000 ML IV SCH ×2 (01:49→12:22)
--- NOTE | 2017-03-12 02:22 | NUR ---
Rounds Patient resting in bed with eyes closed, at bedside. No distress noted, breathing is even and unlabored. IV site patent/clean/dry. Will continue to monitor.
--- NOTE | 2017-03-12 04:13 | NUR ---
Rounds Patient resting in bed with eyes closed, at bedside, easily aroused. Patient denies any acute distress, pain, or needs at this time. Breathing is even and unlabored. IV site patent/clean/dry. Will continue to monitor.
[2017-03-12 05:15] VITALS: BP_SYST 138
--- NOTE | 2017-03-12 06:37 | NUR ---
Closing Notes Patient resting in bed with eyes closed, easily aroused, at bedside. Patient denies any acute distress or pain at this time. Breathing is even and unlabored. IV site patent/clean/dry, no S/S infection/infiltration noted. GT dressing changed per patient request, minimal drainage noted. HOB elevated, patient tolerating tube feeding. Needs addressed throughout shift. Call light in hand, fall precautions in place. Will continue to monitor for changes and safety, and endorse all patient care/needs to oncoming nurse.
[2017-03-12 09:54] VITALS: BP_SYST 132
[2017-03-12] MEDS: FERROUS SULFATE 300 MG/5 ML UDC GT SCH (10:14)
[2017-03-12] MEDS: MULTIVITS W-MIN/FERROUS GLUC 15 ML UDC GT SCH (10:14)
--- NOTE | 2017-03-12 10:34 | NUR ---
Patient tolerated g-tube med pass. Residual 0ml. Tube feeding resumed at this time 40ml per hour. Noc nurse noted some leakage. Feeding in off position when underwriter solicitation director entered room. Patient doing her own oral care swishing and spitting at this time. Says she is strong to walk. Freight Separator appreciated strength 5 / 5 in arms and legs.
[2017-03-12 11:47] LABS: BASOPHILS # (AUTO) 0.1 K/uL (0.0-0.2); BASOPHILS % (AUTO) 0.6 % (0.0-2.0); EOSINOPHILS # (AUTO) 0.1 K/uL (0.0-0.4); EOSINOPHILS % (AUTO) 0.7 % (0.0-4.0); HEMATOCRIT 28.8 % (36-48); HEMOGLOBIN 9.2 g/dL (12.0-16.0); LYMPHOCYTES # (AUTO) 0.7 K/uL (1.0-5.5); LYMPHOCYTES % (AUTO) 7.9 % (20.5-51.5); MEAN CORPUSCULAR HEMOGLOBIN 28 pg (27-31); MEAN CORPUSCULAR HGB CONC 32 % (32-36); MEAN CORPUSCULAR VOLUME 88 fL (79.0-98.0); MONOCYTES # (AUTO) 0.5 K/uL (0.0-1.0); MONOCYTES % (AUTO) 5.6 % (1.7-9.3); NEUTROPHILS # (AUTO) 7.4 K/uL (1.8-7.7); NEUTROPHILS % (AUTO) 85.2 % (40.0-70.0); PLATELET COUNT (AUTO) 306 K/uL (130-430); RED BLOOD CELL COUNT(AUTO) 3.26 MIL/uL (4.2-6.2); RED CELL DISTRIBUTION WIDTH 17.9 % (9.0-15.0); WHITE BLOOD COUNT (AUTO) 8.8 K/uL (4.8-10.8)
[2017-03-12] MEDS ORDERED: MAGNESIUM CITRATE 300 ML ORAL SOLUTION GT ONE (12:00)
--- NOTE | 2017-03-12 12:01 | NUR ---
DISCHARGE PLANNING Patient has been on continued home health with [facility] [phone] Addendum: 03/12/17 at 1244 by Gricelda Villarreal DP Faxed home health referral to [facility] requesting to resume home health visits. Will follow up. Addendum: 03/12/17 at 1435 by Gricelda Villarreal DP spoke with Akiko in intake dept at [facility], confirmed faxed order was received and will call patient/family to make visit arrangements and resume home health visits.
[2017-03-12 12:14] VITALS: BP_SYST 119
[2017-03-12] MEDS ORDERED: DOCUSATE SODIUM 100 MG/10 ML UDC GT ONE (13:15)
[2017-03-12 14:14] VITALS: BP_SYST 123
--- NOTE | 2017-03-12 14:55 | NUR ---
Administration of g-tube medication as ordered. Instructed daughter to take extra dose of magnesium citrate in 1 hour from now. Verbalizes understanding.
[2017-03-12] MEDS ORDERED: COLL100 GT (15:05)
[2017-03-12] MEDS ORDERED: PANT40SU2 GT (15:07)
[2017-03-12] MEDS ORDERED: SUCR1TAB PO (15:07)
--- NOTE | 2017-03-12 15:50 | NUR ---
D/C Patient Patient given medication reconciliation form and D/C instructions. Exit Care provided. Patient verbalized understanding. MD discussed with patient the results and treatment provided. Ambulatory with steady gait for discharge to home. Patient in stable condition, ID band removed. IV catheter removed, intact and dressing applied, no active bleeding. Rx given. Patient educated on pain management. All belongings sent with patient.
[2017-03-12 16:42] VITALS: BP_SYST 123
[2017-03-12] MEDS ORDERED: DOCUSATE SODIUM 100 MG/10 ML UDC GT SCH (21:00)
--- NOTE | 2017-03-18 14:08 | NUR ---
Discharge Follow Up Phone Call: [facility] Compliance Coordinator called and left voice mails for pt ([phone]) on 03/13/17 and 03/17/17. Pt was re-admitted to this hospital on 03/18/17. No further follow up for this admission required at this time.
== END 2017-03-12 17:30 | disposition home health service (06) | DRG 375 ==
LOC: SED 17:47 → STU 19:41 → SMU 03-11 12:06
PROVIDERS: ADMIT Internal Medicine; ATTEND Internal Medicine
PROC: 30233N1 Transfusion of Nonautologous Red Blood Cells into Peripheral Vein, Percutaneous Approach (ICD-10-PCS; principal; 2017-03-10)
DX: C15.9 Malignant neoplasm of esophagus, unspecified (principal); D62 Acute posthemorrhagic anemia; E44.0 Moderate protein-calorie malnutrition; Z68.1 Body mass index [BMI] 19.9 or less, adult; R13.10 Dysphagia, unspecified; Z79.899 Other long term (current) drug therapy; Z93.1 Gastrostomy status
CPT/HCPCS: 36415; 78278-TC; 80053; 83880; 84484; 85025; 85610-TC; 86886; 86900; 86901; 86920; 87081; 93005; 99291; A9560; C9113; J7030; J7040; P9021

== ENCOUNTER 2017-03-18 02:19 | Inpatient (IN) | payer OTHER, MEDICARE ==
[~2017-03-18] VITALS: Ht 160 cm; Wt 46.7 kg
[2017-03-18 02:19] VITALS: BP_SYST 123
[~2017-03-18 02:19] MED LIST changes: +COLL100 GT; +PANT40SU2 GT; +SUCR1TAB PO
--- NOTE | 2017-03-18 02:20 | NUR ---
Placed in room 1. Placed on protection chief industrial plant, blood pressure machine and pulse oximeter. To gown for exam. Side rails up. Report received by Kaylen PINEDO.
[2017-03-18] MEDS ORDERED: NACL 0.9% 1,000 ML IV SCH (02:22)
--- NOTE | 2017-03-18 02:22 | NUR ---
ER MD Ortiz at bedside for evaluation
--- NOTE | 2017-03-18 02:24 | NUR ---
Patient brought to ER by ALS from home C/O generalized weakness and blood tinged emesis. Patient has Hx of severe anemia and esophageal cancer. Patient AAOx3, unlabored shallow breathing, G-tube present, patency not verified at this time, generalized weakness, skin pale, no active vomiting at this time, no active distress.
--- NOTE | 2017-03-18 02:25 | NUR ---
# 20 gauge angiocath placed to right ac. Use of asceptic technique. Opsite placed over site. Blood return noted. Blood for lab drawn from site including type/cross. Flushed with 10 cc of normal saline. No evidence of infiltration noted. Patient tolerated well.
[2017-03-18] MEDS ORDERED: ONDANSETRON HCL 4 MG/2 ML VIAL IVP ONE (02:30)
--- NOTE | 2017-03-18 02:50 | NUR ---
Medication reconciliation completed with information provided by - patient stating no change from last admission. Any prior medication reconciliation on file was reviewed and corrected.
[2017-03-18 02:53] LABS: CALCIUM 8.4 mg/dL (8.4-11.0); CHLORIDE 102 mmol/L (98-107); CREATININE 0.58 mg/dL (0.55-1.30); GFR AFRICAN AMERICAN 134 mL/min (>90); GLUCOSE 151 mg/dL (70-99); SODIUM SERUM 137 mmol/L (136-145); UREA NITROGEN, BLOOD 32 mg/dL (8-21)
[2017-03-18 03:00] LABS: ANION GAP < 3 (5-15); POTASSIUM 2.9 mmol/L (3.5-5.1)
[2017-03-18 03:01] LABS: ALANINE AMINOTRANSFERASE 61 U/L (12-78); ALBUMIN 2.4 g/dL (3.4-4.8); ASPARTATE AMINOTRANSFERASE 70 U/L (10-37); TOTAL BILIRUBIN 0.1 mg/dL (0.0-1.0); TOTAL PROTEIN, SERUM 5.4 g/dL (6.4-8.3)
[2017-03-18 03:08] LABS: MEAN CORPUSCULAR HEMOGLOBIN 30 pg (27-31); MEAN CORPUSCULAR HGB CONC 34 % (32-36); MEAN CORPUSCULAR VOLUME 88 fL (79.0-98.0); RED BLOOD CELL COUNT(AUTO) 1.77 MIL/uL (4.2-6.2); WHITE BLOOD COUNT (AUTO) 13.7 K/uL (4.8-10.8)
[2017-03-18 03:09] LABS: BASOPHILS # (AUTO) 0.1 K/uL (0.0-0.2); BASOPHILS % (AUTO) 0.4 % (0.0-2.0); EOSINOPHILS # (AUTO) 0.1 K/uL (0.0-0.4); EOSINOPHILS % (AUTO) 0.4 % (0.0-4.0); LYMPHOCYTES # (AUTO) 0.7 K/uL (1.0-5.5); LYMPHOCYTES % (AUTO) 4.8 % (20.5-51.5); MONOCYTES # (AUTO) 0.6 K/uL (0.0-1.0); MONOCYTES % (AUTO) 4.3 % (1.7-9.3); NEUTROPHILS # (AUTO) 12.2 K/uL (1.8-7.7); NEUTROPHILS % (AUTO) 90.1 % (40.0-70.0); PLATELET COUNT (AUTO) 364 K/uL (130-430); RED CELL DISTRIBUTION WIDTH 16.3 % (9.0-15.0)
--- NOTE | 2017-03-18 03:10 | NUR ---
G-tube placement verified. Residual contains 20ml brow-red liquid, blood tinged.
[2017-03-18] MEDS ORDERED: POTASSIUM CHLORIDE 20 MEQ/PKT PACKET PO ONE (03:15)
[2017-03-18 03:21] LABS: INR 0.9 (0.8-1.2); PROTHROMBIN TIME 9.9 SECS (9.5-12.5)
[2017-03-18 03:25] LABS: HEMOGLOBIN 5.3 g/dL (12.0-16.0)
[2017-03-18 03:26] LABS: HEMATOCRIT 15.6 % (36-48)
--- NOTE | 2017-03-18 03:50 | NUR ---
Blood transfussion consent signed and witnessed
--- NOTE | 2017-03-18 03:57 | NUR ---
Patient will be admitted to care of DR BELLAMY. Admitted to TELE IN unit. Will go to room 131A. Belongings list completed. Summary report printed. Report will be given at bedside.
[2017-03-18] MEDS ORDERED: PANTOPRAZOLE SODIUM 40 MG/VIAL (PROTONIX) IVP ONE ×2 (04:00→14:15)
--- NOTE | 2017-03-18 04:23 | NUR ---
ADMISSION NOTE Received patient from ER via luke, received report from Kaylen PINEDO. Patient admitted with diagnosis of severe anemia. Patient oriented to hospital routine, call light, toileting and safety-patient verbalized understanding.
[2017-03-18] MEDS: LR 1,000 ML IV SCH (04:56)
--- NOTE | 2017-03-18 05:00 | NUR ---
BEDSIDE COMMODE UP TO BEDSIDE COMMODE WITH ASSIST. C/O SLIGHT DIZZINESS.
[2017-03-18] MEDS: SUCRALFATE 1 GM/10 ML UDC GT SCH ×4 (05:13→23:38)
[2017-03-18 05:22] VITALS: BP_SYST 94
--- NOTE | 2017-03-18 06:50 | NUR ---
CLOSING NOTES PATIENT HAS IV LR @ 50ML/HR VIA RT. AC 20 G INTACT. AWAITING BLOOD BANK. T&S FOR 3 UNITS PRBC. HAS G-TUBE WITH 20ML RESIDUAL. APPEARS TO BE OLD BLOOD. TELE. SHOWS SR. NO DISTRESS NOTED @ THIS TIME. ASLEEP. CALL LIGHT WITHIN EASY ACCESS. INFORMED PATIENT AND TO CALL NURSE FOR ALL NEEDS AND NOT TO GET OUT OF BED WITHOUT ASSIST.
--- NOTE | 2017-03-18 07:21 | NUR ---
OPENING NOTE/0800 NOTE RECEIVED REPORT FROM PAYROLL ADMINISTRATIVE ASSISTANT NURSE. PATIENT IS RESTING COMFORTABLY WITH SPOUSE AT BEDSIDE. PATIENT HAS NO COMPLAINTS OF PAIN AT THIS TIME. NO NOTABLE SIGNS OF DISTRESS AT THIS TIME. PATIENT WILL BE RECEIVING BLOOD FOR LOW H/H. IV RUNNING PER MD ORDERS. AWAITING CALL FROM LAB THAT BLOOD IS READY. PATIENTS BED IN LOWEST POSITION, CALL LIGHT WITHIN REACH, AND SIDE RAILS ARE UP FOR SAFETY. PATIENT IS EDUCATED TO CALL WHEN NEEDS ARISE.
[2017-03-18 08:52] VITALS: BP_SYST 98
--- NOTE | 2017-03-18 09:52 | NUR ---
Nutrition Update Dylan Scale 14 noted. Pt admitted for acute blood loss anemia. Diet: NPO BMI: 18.4 kg/m2 RD to follow per nutrition care standards.
--- NOTE | 2017-03-18 10:18 | NUR ---
BLOOD TRANSFUSION/1000 NOTE: PATIENT RESTING COMFORTABLY AT THIS TIME. NO COMPLAINTS OF PAIN AT THIS TIME. SPOUSE IS AT BEDSIDE FOR COMFORT. BLOOD TRANSFUSION BEGAN FOR LOW H/H. 5.3/ 15.6. PATIENT HAS NO SYMPTOMS OF DISTRESS AT THIS TIME. PATIENT IN STABLE CONDITION. VITAL SIGNS PRE TRANSFUSION: 97.6T; 18RR; 98/54 B/P; 77HR REG; 95% ROOM AIR. CURRENTLY AT PATIENTS BEDSIDE FOR 15 MINUTES, MONITORING FOR TRANSFUSION REACTION OR DISTRESS. PATIENTS BED IN LOWEST POSITION, CALL LIGHT WITHIN REACH, AND SIDE RAIL ARE UP FOR SAFETY.
--- NOTE | 2017-03-18 10:33 | NUR ---
15 AFTER TRANSFUSION: VITAL SIGNS ARE 97.4T; 16RR; 95/50 B/P; 75HR; 975 ON ROOM AIR. PATIENT TOLERATING BLOOD TRANSFUSION. PATIENT RESTING AT THIS TIME. FAMILY AT BEDSIDE. PATIENT AND FAMILY EDUCATED ON TRANSFUSION REACTION SYMPTOMS OF: CHEST PAIN; SHORTNESS OF BREATHE; ITCHING; RASH--PLEASE NOTIFY NURSING STAFF IMMEDIATELY IF THESE OCCUR. WILL FOLLOW UP WHEN TRANSFUSION COMPLETED.
[2017-03-18 11:34] VITALS: BP_SYST 111
--- NOTE | 2017-03-18 11:59 | NUR ---
GI CONSULT Spoke with Merly regarding request for consultation with Dr. Frankel ([phone]) for reason: GI bleeding.
--- NOTE | 2017-03-18 12:19 | NUR ---
1200 NOTE PATIENT IS RESTING COMFORTABLY, SPOUSE AT BEDSIDE. NO COMPLAINTS OF PAIN AT THIS TIME. PATIENT HAS NO NOTABLE SIGNS OF DISTRESS AT THIS TIME. PATIENTS TRANSFUSION RATE INCREASED TO 150ML/HR PER DR. BELLAMY. DR. BELLAMY WROTE FOR GI CONSULTATION AND FOR TUBE FEEDS TO RESUME. PATIENTS BED IN LOWEST POSITION, CALL LIGHT WITHIN REACH, AND SIDE RAILS ARE UP FOR SAFETY. PATIENT EDUCATED TO CALL WHEN NEEDS ARISE. PATIENT IV RUNNING PER MD ORDERS. WILL CONTINUE TO MONITOR FOR CHANGES IN STATUS.
--- NOTE | 2017-03-18 13:18 | NUR ---
END BLOOD TRANSFUSION I PATIENT TOLERATED TRANSFUSION WELL. NO COMPLICATIONS NOTED. 1315 WAS END TIME. VITALS FOLLOWS: 97.4 T; 76HR; 16RR; 100/52 B/P. WILL CONTINUE TO MONITOR. 2 MORE UNITS OF PRBC WILL BE INFUSED. PATIENT TO START TUBE FEEDING. PATIENT RESTING COMFORTABLY. WILL CONTINUE TO MONITOR PATIENT FOR CHANGES IN STATUS.
--- NOTE | 2017-03-18 14:05 | NUR ---
BLOOD TRANSFUSION 2ND UNIT BLOOD TRANSFUSION OF 2ND UNIT BEGAN. PATIENTS VITALS ARE FOLLOWS: 97.4T; 70HR; 18RR; BP OF 115/57. RATE SET TO 150ML/HR. WILL CONTINUE TO MONITOR PATIENT FOR 15 MINUTES FOR TRANSFUSION REACTION. PATIENT EDUCATED ON S/S TO REPORT TO NURSING STAFF IMMEDIATELY.
--- NOTE | 2017-03-18 14:20 | NUR ---
15MIN BLOOD TRANSFUSION CHECK PATIENT RESTING COMFORTABLY, NO SIGNS OF DISTRESS AT THIS TIME. NO COMPLAINTS OF PAIN AT THIS TIME. PATIENT TOLERATING BLOOD TRANSFUSION WELL. VITAL SIGNS FOLLOWS: 97.4T; 69HR; 17RR; 106/54. WILL CONTINUE TO MONITOR PATIENT FOR CHANGES IN STATUS. TRANSFUSION TO RUN OVER 2 HOURS.
[2017-03-18] MEDS: FERROUS SULFATE 300 MG/5 ML UDC GT SCH ×2 (15:26→20:30)
[2017-03-18 15:55] VITALS: BP_SYST 104
--- NOTE | 2017-03-18 16:05 | NUR ---
1600 NOTE BLOOD TRANSFUSION COMPLETE WITHOUT COMPLICATIONS VITAL SIGNS FOLLOWS. 97.4T; 71HR; 16RR; B/P 111/61. PATIENT RESTING COMFORTABLY, NO COMPLAINTS OF PAIN AT THIS TIME. FAMILY IS AT BEDSIDE. PATIENT HAS NO NOTABLE SIGNS OF DISTRESS AT THIS TIME. PATIENTS BED IN LOWEST POSITION, CALL LIGHT WITHIN REACH, AND SIDE RAILS ARE UP FOR SAFETY. WILL CONTINUE TO MONITOR PATIENT FOR CHANGES. WILL NEED ONE MORE TRANSFUSION OF PRBC.
--- NOTE | 2017-03-18 17:46 | NUR ---
BLOOD TRANSFUSION III 3RD UNIT OF PRBC INFUSING AT THIS TIME. MONITORING PATIENT FOR FIRST 15 MINUTES OF TRANSFUSION. VITAL SIGNS ARE FOLLOWS: T97.8; HR 69; 18RR; 116/64. PATIENT EDUCATED ON SIGNS AND SYMPTOMS OF TRANSFUSION REACTION. VERBALIZES UNDERSTANDING. WILL CONTINUE TO FOLLOW UP.
--- NOTE | 2017-03-18 18:03 | NUR ---
CLOSING/1800 NOTE/15MIN AFTER TRANSFUSION AWAITING TO GIVE REPORT TO MARKETING BUSINESS ANALYST RN. PATIENT RESTING COMFORTABLY, ALL NEEDS MET AT THIS TIME. PATIENT HAS NO COMPLAINTS OF PAIN AT THIS TIME. FAMILY IS AT BEDSIDE FOR SUPPORT. PATIENT HAS TUBEFEEDING RUNNING AT 50 ML HOUR; 100ML WATER FLUSHES Q6HR. PATIENT HAS 3RD BAG OF PRBC RUNNING AT 150ML/HR PER MD ORDERS. PATIENT GETS UP TO BEDSIDE COMMODE. PATIENTS BED IN LOWEST POSITION, CALL LIGHT WITHIN REACH, AND SIDE RAILS ARE UP FOR SAFETY. WILL CONTINUE TO MONITOR PATIENT FOR CHANGES IN STATUS. 15 MINUTE FOLLOW UP VITAL SIGNS FOLLOWS: BP 120/66; HR 66; O2 AT 97%; RR 17; AND TEMP AT 97.4. TRANSFUSING WITHOUT COMPLICATION. WILL CONTINUE TO MONITOR.
[2017-03-18 20:00] VITALS: BP_SYST 115
--- NOTE | 2017-03-18 20:00 | NUR ---
Initial Notes Received patient resting in bed with eyes closed, easily aroused, family at bedside. Patient is drowsy, oriented. Patient denies any acute distress or pain at this time. Breathing is even and unlabored on room air. IV site patent/clean/dry. PRBC transfusing per MD order, patient tolerating well, no adverse affects noted, reported. HOB elevated, patient tolerating G-tube feeding, residual at 40ml, dark. Educated patient on use of call light for assistance and fall precautions, patient verbalized understanding. Needs addressed. Call light in hand, will continue to monitor.
[2017-03-18] MEDS: PANTOPRAZOLE SODIUM 40 MG/VIAL (PROTONIX) IVP SCH (20:28)
[2017-03-18] MEDS: DOCUSATE SODIUM 100 MG/10 ML UDC GT SCH (20:30)
[2017-03-18] MEDS: MULTIVITS W-MIN/FERROUS GLUC 15 ML UDC GT SCH (20:31)
--- NOTE | 2017-03-18 22:00 | NUR ---
Rounds Patient resting in bed, awake, family at bedside. Patient denies any acute distress or pain at this time. Breathing is even and unlabored. IV site patent/clean/dry. Assisted patient to restroom. Needs addressed. Call light in hand, will continue to monitor.
[2017-03-19] VITALS: BP_SYST 112
--- NOTE | 2017-03-19 | NUR ---
Rounds Patient resting in bed, awake, at bedside. Patient denies any acute distress or pain. Breathing is even and unlabored. IV site patent/clean/dry. HOB elevated. Patient tolerating tube feeding, residual 50ml. Needs addressed. Call light in hand.
--- NOTE | 2017-03-19 02:00 | NUR ---
Rounds Patient resting in bed with eyes closed, at bedside. No distress noted, breathing is even and unlabored. IV site patent/clean/dry. HOB elevated. Call light in hand, will continue to monitor.
[2017-03-19 04:00] VITALS: BP_SYST 113
--- NOTE | 2017-03-19 04:00 | NUR ---
Rounds Patient resting in bed with eyes closed, family at bedside. No acute distress noted. Breathing is even and unlabored. IV site patent/clean/dry. Call light in hand, will continue to monitor.
[2017-03-19] MEDS: SUCRALFATE 1 GM/10 ML UDC GT SCH ×3 (05:05→18:11)
--- NOTE | 2017-03-19 06:37 | NUR ---
Closing Notes Patient resting in bed with eyes closed, easily aroused, at bedside. Patient denies any acute distress or pain at this time. Breathing is even and unlabored. IV site patent/clean/dry, no S/S infection/infiltration noted. Needs addressed throughout shift. Call light in hand, fall precautions in place. Will continue to monitor for changes and safety, and endorse all patient care/needs to oncoming nurse.
[2017-03-19 07:38] LABS: BASOPHILS # (AUTO) 0.1 K/uL (0.0-0.2); BASOPHILS % (AUTO) 0.6 % (0.0-2.0); EOSINOPHILS # (AUTO) 0.1 K/uL (0.0-0.4); HEMATOCRIT 26.7 % (36-48); HEMOGLOBIN 8.9 g/dL (12.0-16.0); LYMPHOCYTES # (AUTO) 0.8 K/uL (1.0-5.5); LYMPHOCYTES % (AUTO) 8.5 % (20.5-51.5); MEAN CORPUSCULAR HEMOGLOBIN 30 pg (27-31); MEAN CORPUSCULAR HGB CONC 34 % (32-36); MEAN CORPUSCULAR VOLUME 91 fL (79.0-98.0); MONOCYTES # (AUTO) 0.5 K/uL (0.0-1.0); MONOCYTES % (AUTO) 5.4 % (1.7-9.3); NEUTROPHILS # (AUTO) 8.1 K/uL (1.8-7.7); NEUTROPHILS % (AUTO) 84.5 % (40.0-70.0); PLATELET COUNT (AUTO) 306 K/uL (130-430); RED BLOOD CELL COUNT(AUTO) 2.94 MIL/uL (4.2-6.2); RED CELL DISTRIBUTION WIDTH 14.6 % (9.0-15.0); WHITE BLOOD COUNT (AUTO) 9.6 K/uL (4.8-10.8)
[2017-03-19 08:00] VITALS: BP_SYST 114
--- NOTE | 2017-03-19 08:00 | NUR ---
OPENING NOTES RECEIVED PATIENT IN BED, DENIES PAIN. NO SOB. NO DISTRESS. PT VITALS WNL, NO FEVER. IV ACCESS INTACT AND PATENT. FAMILY AT BEDSIDE, CALL LIGHT IN REACH AND BED IN LOW POSITION. REMINDED PATIENT OF NEED FOR URINE SAMPLE. INSTRUCTED TO CALL FOR ASSIST AND PAIN MEDICATIONS. WILL CONT TO MONITOR.
[2017-03-19 08:07] LABS: ALBUMIN 1.9 g/dL (3.4-4.8); CREATININE 0.54 mg/dL (0.55-1.30); POTASSIUM 3.4 mmol/L (3.5-5.1); TOTAL BILIRUBIN 0.4 mg/dL (0.0-1.0); TOTAL PROTEIN, SERUM 4.8 g/dL (6.4-8.3)
[2017-03-19] MEDS: MULTIVITS W-MIN/FERROUS GLUC 15 ML UDC GT SCH (09:00)
[2017-03-19] MEDS: PANTOPRAZOLE SODIUM 40 MG/VIAL (PROTONIX) IVP SCH (09:25)
[2017-03-19] MEDS: DOCUSATE SODIUM 100 MG/10 ML UDC GT SCH (09:25)
[2017-03-19] MEDS: FERROUS SULFATE 300 MG/5 ML UDC GT SCH ×2 (09:25→15:46)
[2017-03-19] MEDS: LR 1,000 ML IV SCH (09:30)
--- NOTE | 2017-03-19 12:00 | NUR ---
ROUNDING NOTES PATIENT IN BED, DENIES PAIN. CALL LIGHT IN REACH AND BED IN LOW POSITION. INSTRUCTED TO CALL FOR ASSIST AND PAIN MEDICATIONS. WILL CONT TO MONITOR.
[2017-03-19] MEDS ORDERED: POTASSIUM CHLORIDE 20 MEQ/PKT PACKET GT ONE (12:15)
--- NOTE | 2017-03-19 13:01 | NUR ---
DISCHARGE PLANNING DC order to resume home health. Faxed order to [facility] [phone] requesting to resume home health visits. Addendum: 03/19/17 at 1449 by Gricelda Villarreal DP Spoke with Akiko in intake dept who confirmed fax was received and will have nurse call patient/family to resume home health visits.
[2017-03-19 14:52] VITALS: BP_SYST 134
--- NOTE | 2017-03-19 16:00 | NUR ---
ROUNDING NOTES, PATIENT RECEIVING PRBC , NO UNTOWARD REACTION NOTED OR REPORTED BY PT. WILL CONT TO MONITOR.AND BED IN LOW POSITION. WILL CONT TO MONITOR.
--- NOTE | 2017-03-19 18:10 | NUR ---
CLOSING NOTES, PT RECEIVED 1 UNIT OF PRBC, WITH NO UNTOWARD REACTION OR ADVERSE REACTION. PT REMAINED STABLE. PT AWARE OF DC PLAN TONIGHT. WILL ENDORSE TO NIGHT RN.
[2017-03-19 18:40] VITALS: BP_SYST 136
[2017-03-19 20:40] VITALS: BP_SYST 137
== END 2017-03-19 21:20 | disposition home health service (06) | DRG 375 ==
LOC: SED 02:19 → STU 03:58 → SMU 03-19 19:22
PROVIDERS: ADMIT Internal Medicine; ATTEND Internal Medicine
PROC: 30233N1 Transfusion of Nonautologous Red Blood Cells into Peripheral Vein, Percutaneous Approach (ICD-10-PCS; principal; 2017-03-18)
PROC: 30233N1 Transfusion of Nonautologous Red Blood Cells into Peripheral Vein, Percutaneous Approach (ICD-10-PCS; 2017-03-19)
DX: C15.5 Malignant neoplasm of lower third of esophagus (principal); K92.2 Gastrointestinal hemorrhage, unspecified; D62 Acute posthemorrhagic anemia; E44.0 Moderate protein-calorie malnutrition; Z68.1 Body mass index [BMI] 19.9 or less, adult; E87.6 Hypokalemia; Z66 Do not resuscitate; D72.829 Elevated white blood cell count, unspecified; Z53.20 Procedure and treatment not carried out because of patient's decision for unspecified reasons; Z93.1 Gastrostomy status; Z80.49 Family history of malignant neoplasm of other genital organs; Z80.8 Family history of malignant neoplasm of other organs or systems; Z85.01 Personal history of malignant neoplasm of esophagus; Z79.899 Other long term (current) drug therapy
CPT/HCPCS: 36415; 71010; 80053; 83735-TC; 85025; 85610-TC; 85730-TC; 86886; 86900; 86901; 86920; 87081; 96361; 96374; 99285; C9113; J2405; J7030; J7040; J7120; P9021

== ENCOUNTER 2017-03-31 16:23 | Inpatient (IN) | payer OTHER, MEDICARE ==
[~2017-03-31] VITALS: Ht 160 cm; Wt 46.7 kg
[2017-03-31 16:25] VITALS: BP_SYST 131
[2017-03-31 17:06] LABS: BASOPHILS # (AUTO) 0.1 K/uL (0.0-0.2); BASOPHILS % (AUTO) 0.5 % (0.0-2.0); EOSINOPHILS # (AUTO) 0.1 K/uL (0.0-0.4); EOSINOPHILS % (AUTO) 0.3 % (0.0-4.0); LYMPHOCYTES # (AUTO) 0.5 K/uL (1.0-5.5); LYMPHOCYTES % (AUTO) 2.3 % (20.5-51.5); MEAN CORPUSCULAR HEMOGLOBIN 31 pg (27-31); MEAN CORPUSCULAR HGB CONC 34 % (32-36); MEAN CORPUSCULAR VOLUME 91 fL (79.0-98.0); MONOCYTES # (AUTO) 0.8 K/uL (0.0-1.0); MONOCYTES % (AUTO) 3.8 % (1.7-9.3); NEUTROPHILS # (AUTO) 18.5 K/uL (1.8-7.7); NEUTROPHILS % (AUTO) 93.1 % (40.0-70.0); PLATELET COUNT (AUTO) 316 K/uL (130-430); RED BLOOD CELL COUNT(AUTO) 2.27 MIL/uL (4.2-6.2); RED CELL DISTRIBUTION WIDTH 14.7 % (9.0-15.0)
[2017-03-31 17:15] LABS: HEMATOCRIT 20.7 % (36-48); INR 0.9 (0.8-1.2); PROTHROMBIN TIME 9.9 SECS (9.5-12.5)
[2017-03-31 17:16] LABS: CALCIUM 7.2 mg/dL (8.4-11.0); CREATININE 0.44 mg/dL (0.55-1.30)
[2017-03-31 17:28] LABS: ALBUMIN 1.8 g/dL (3.4-4.8); POTASSIUM 2.8 mmol/L (3.5-5.1); TOTAL BILIRUBIN 0.2 mg/dL (0.0-1.0); TOTAL PROTEIN, SERUM 4.5 g/dL (6.4-8.3)
[2017-03-31] MEDS ORDERED: POTASSIUM CHLORIDE 40 MEQ, LIDOCAINE JECT 2% PF 100 MG 50 MG in NS 250 ML IV ONE (18:00)
[2017-03-31 18:43] VITALS: BP_SYST 121
[2017-03-31 20:30] VITALS: BP_SYST 123
[2017-03-31] MEDS ORDERED: LEVO500T20 PO (21:34)
[2017-03-31 22:41] VITALS: BP_SYST 126
[2017-03-31] MEDS ORDERED: LEVOFLOXACIN 500 MG/D5W 100 ML IV ONE ×2 (23:00→23:09)
[2017-03-31 23:09] VITALS: BP_SYST 130
[2017-03-31] MEDS: PANTOPRAZOLE SODIUM 40 MG/VIAL (PROTONIX) IVP SCH (23:54)
[2017-04-01] VITALS (12 sets, daily range): BP systolic 91–146
[2017-04-01 07:54] LABS: BASOPHILS % (AUTO) 0.2 % (0.0-2.0); EOSINOPHILS # (AUTO) 0.1 K/uL (0.0-0.4); EOSINOPHILS % (AUTO) 0.4 % (0.0-4.0); HEMATOCRIT 23.5 % (36-48); HEMOGLOBIN 7.9 g/dL (12.0-16.0); LYMPHOCYTES # (AUTO) 0.6 K/uL (1.0-5.5); LYMPHOCYTES % (AUTO) 4.3 % (20.5-51.5); MEAN CORPUSCULAR HEMOGLOBIN 30 pg (27-31); MEAN CORPUSCULAR HGB CONC 34 % (32-36); MEAN CORPUSCULAR VOLUME 90 fL (79.0-98.0); MONOCYTES # (AUTO) 0.7 K/uL (0.0-1.0); MONOCYTES % (AUTO) 5.5 % (1.7-9.3); NEUTROPHILS # (AUTO) 11.9 K/uL (1.8-7.7); NEUTROPHILS % (AUTO) 89.6 % (40.0-70.0); PLATELET COUNT (AUTO) 219 K/uL (130-430); RED CELL DISTRIBUTION WIDTH 13.9 % (9.0-15.0); WHITE BLOOD COUNT (AUTO) 13.3 K/uL (4.8-10.8)
[2017-04-01 08:04] LABS: CALCIUM 7.2 mg/dL (8.4-11.0); CREATININE 0.43 mg/dL (0.55-1.30); POTASSIUM 3.3 mmol/L (3.5-5.1)
[2017-04-01] MEDS: PANTOPRAZOLE SODIUM 40 MG/VIAL (PROTONIX) IVP SCH ×2 (09:28→20:54)
[2017-04-01] MEDS ORDERED: POTASSIUM CHLORIDE 40 MEQ in NS 250 ML IV ONE (20:30)
[2017-04-01] MEDS ORDERED: LEVOFLOXACIN 500 MG/D5W 100 ML IV SCH (21:00)
[2017-04-01] MEDS ORDERED: TEMAZEPAM 15 MG CAPSULE GT SCH (21:00)
[2017-04-01] MEDS ORDERED: KCL 40 mEq in 100 mL (PREMIX) 100 ML IV ONE (21:49)
[2017-04-01] MEDS: KCL 40mEq in D5/0.45NS 1000 mL 1,000 ML IV SCH (22:52)
[2017-04-02] VITALS: BP_SYST 104
[2017-04-02 04:00] VITALS: BP_SYST 114
[2017-04-02 07:16] LABS: BASOPHILS % (AUTO) 0.3 % (0.0-2.0); EOSINOPHILS # (AUTO) 0.1 K/uL (0.0-0.4); EOSINOPHILS % (AUTO) 0.6 % (0.0-4.0); HEMATOCRIT 26.9 % (36-48); LYMPHOCYTES # (AUTO) 0.6 K/uL (1.0-5.5); LYMPHOCYTES % (AUTO) 4.6 % (20.5-51.5); MEAN CORPUSCULAR HEMOGLOBIN 29 pg (27-31); MEAN CORPUSCULAR HGB CONC 34 % (32-36); MEAN CORPUSCULAR VOLUME 87 fL (79.0-98.0); MONOCYTES # (AUTO) 0.7 K/uL (0.0-1.0); MONOCYTES % (AUTO) 5.4 % (1.7-9.3); NEUTROPHILS # (AUTO) 12.2 K/uL (1.8-7.7); NEUTROPHILS % (AUTO) 89.1 % (40.0-70.0); PLATELET COUNT (AUTO) 200 K/uL (130-430); RED BLOOD CELL COUNT(AUTO) 3.09 MIL/uL (4.2-6.2); RED CELL DISTRIBUTION WIDTH 15.1 % (9.0-15.0); WHITE BLOOD COUNT (AUTO) 13.6 K/uL (4.8-10.8)
[2017-04-02 07:30] LABS: CALCIUM 7.3 mg/dL (8.4-11.0); CREATININE 0.41 mg/dL (0.55-1.30); POTASSIUM 3.7 mmol/L (3.5-5.1)
[2017-04-02 08:21] VITALS: BP_SYST 109
[2017-04-02] MEDS: PANTOPRAZOLE SODIUM 40 MG/VIAL (PROTONIX) IVP SCH (08:58)
[2017-04-02 12:00] VITALS: BP_SYST 104
[2017-04-02] MEDS: KCL 40mEq in D5/0.45NS 1000 mL 1,000 ML IV SCH (12:20)
[2017-04-02 14:50] VITALS: BP_SYST 109
[2017-04-02 17:11] VITALS: BP_SYST 108
== END 2017-04-02 15:45 | disposition home health service (06) | DRG 374 ==
LOC: SED 16:23 → STU 18:16
PROVIDERS: ADMIT Family Medicine; ATTEND Family Medicine
PROC: 30233N1 Transfusion of Nonautologous Red Blood Cells into Peripheral Vein, Percutaneous Approach (ICD-10-PCS; principal; 2017-03-31)
DX: C15.9 Malignant neoplasm of esophagus, unspecified (principal); E43 Unspecified severe protein-calorie malnutrition; Z68.1 Body mass index [BMI] 19.9 or less, adult; D62 Acute posthemorrhagic anemia; E87.6 Hypokalemia; Z93.1 Gastrostomy status; Z66 Do not resuscitate
CPT/HCPCS: 36415; 80048; 80053; 83735-TC; 85025; 85610-TC; 85730-TC; 86886; 86900; 86901; 86920; 87081; 97116-GP; 99291; C9113; J1956; J3480; J7040; J7050; P9021

== ENCOUNTER 2017-04-10 08:37 | Inpatient (IN) | payer OTHER, MEDICARE ==
[~2017-04-10] VITALS: Ht 160 cm; Wt 46.7 kg
[2017-04-10 08:45] VITALS: BP_SYST 102
--- NOTE | 2017-04-10 08:45 | NUR ---
Placed in room 5 . Placed on groundwater monitoring technician, blood pressure machine and pulse oximeter. To gown for exam. Side rails up. .
--- NOTE | 2017-04-10 08:45 | NUR ---
Brought in by the family via wheelchair,c/o shortness of breath 30 mins prior to arrival. pt has hx of esophageal ca,receiving blood transfusion weekly. just discharged from the hospital 3 days ago. pt is awake,alert.mild dyspnea,skin warm dry and pale.feels very weak.
--- NOTE | 2017-04-10 08:51 | NUR ---
Dr. Reddy at bedside for evaluation
[2017-04-10] MEDS ORDERED: NACL 0.9% 1,000 ML IV ONE (09:00)
--- NOTE | 2017-04-10 09:05 | NUR ---
# 20 gauge angiocath placed to . Use of asceptic technique. Opsite placed over site. Blood return noted. Blood for lab drawn from site. Flushed with 10 cc of normal saline. No evidence of infiltration noted. Patient tolerated well.
[2017-04-10 09:27] LABS: BASOPHILS # (AUTO) 0.1 K/uL (0.0-0.2); EOSINOPHILS # (AUTO) 0.1 K/uL (0.0-0.4); EOSINOPHILS % (AUTO) 0.4 % (0.0-4.0); HEMOGLOBIN 7.5 g/dL (12.0-16.0); LYMPHOCYTES # (AUTO) 0.6 K/uL (1.0-5.5); LYMPHOCYTES % (AUTO) 4.6 % (20.5-51.5); MEAN CORPUSCULAR HEMOGLOBIN 31 pg (27-31); MEAN CORPUSCULAR HGB CONC 34 % (32-36); MEAN CORPUSCULAR VOLUME 90 fL (79.0-98.0); MONOCYTES # (AUTO) 0.5 K/uL (0.0-1.0); MONOCYTES % (AUTO) 3.4 % (1.7-9.3); NEUTROPHILS # (AUTO) 12.3 K/uL (1.8-7.7); NEUTROPHILS % (AUTO) 90.6 % (40.0-70.0); PLATELET COUNT (AUTO) 390 K/uL (130-430); RED BLOOD CELL COUNT(AUTO) 2.42 MIL/uL (4.2-6.2); WHITE BLOOD COUNT (AUTO) 13.6 K/uL (4.8-10.8)
[2017-04-10 09:31] LABS: CALCIUM 7.7 mg/dL (8.4-11.0); CREATININE 0.56 mg/dL (0.55-1.30); HEMATOCRIT 21.9 % (36-48)
[2017-04-10 09:33] LABS: INR 0.9 (0.8-1.2); PROTHROMBIN TIME 9.9 SECS (9.5-12.5)
[2017-04-10 09:36] LABS: ALBUMIN 1.8 g/dL (3.4-4.8); POTASSIUM 3.8 mmol/L (3.5-5.1); TOTAL BILIRUBIN 0.3 mg/dL (0.0-1.0); TOTAL PROTEIN, SERUM 4.9 g/dL (6.4-8.3)
--- NOTE | 2017-04-10 09:37 | NUR ---
pt's daughter consented for the blood transfusion.
[2017-04-10] MEDS ORDERED: ASPIRIN 81 MG TAB.CHEW PO ONE (10:00)
[2017-04-10] MEDS ORDERED: PANTOPRAZOLE SODIUM 40 MG/VIAL (PROTONIX) IVP ONE (10:00)
--- NOTE | 2017-04-10 10:15 | NUR ---
Patient will be admitted to [facility]. Admitted to unit MS. Will go to room 101. Belongings list completed. Summary report printed. Report will be given at bedside.
[2017-04-10] MEDS ORDERED: ASPIRIN 81 MG TAB.CHEW ONE (10:20)
--- NOTE | 2017-04-10 10:28 | NUR ---
ADMISSION NOTE Received patient from ER via luke, received report from SLITTER CREASER SLOTTER OPERATOR. Patient admitted with diagnosis of ACUTE BLOOD LOSS, ANEMIA. Patient oriented to hospital routine, call light, toileting and safety-patient verbalized understanding.
[2017-04-10 10:40] VITALS: BP_SYST 104
--- NOTE | 2017-04-10 11:30 | NUR ---
ATTENDING MD DR BELLAMY WAS CALLED, RE: DIET ORDER. SPOKE TO HAMILTON
--- NOTE | 2017-04-10 12:17 | NUR ---
T INITIATION: Consent signed per patient agreeing to administration of blood. Blood has been type and crossmatched. Blood sent from blood bank. Information on unit of blood checked against patient wristband at bedside by two nurses. All information matches. Patient or responsible constitution party informed of potential complications associated with blood transfusion. Informed of possible transfusion reaction symptoms. Aware of need to notify nurse at once of itching, shortness of breath, flushing, feeling of impending doom, or other symptoms not previously present. Vital signs taken within 5 minutes prior to initiation of transfusion. RN will remain with patient for first 15 minutes of transfusion at which time vital signs will be re-assessed. Addendum: 04/10/17 at 1235 by Bushra Kirkpatrick RN BLOOD TRANSFUSION INITIATION:
[2017-04-10 12:26] VITALS: BP_SYST 122
--- NOTE | 2017-04-10 12:32 | NUR ---
15 MINUTES POST BLOOD TRANSFUSION INITIATION TEMP: 98.2, BP: 99/46, HR: 115, O2 99%, RR 18, PATIENT DENIES ANY S/S OF BLOOD TRANSFUSION REACTIONS, SAFETY MEASURES IN PLACE, CALL LIGHT WITHIN REACH, FAMILY MEMBERS AT BEDSIDE, WILL CONTINUE TO MONITOR
[2017-04-10] MEDS ORDERED: PANTOPRAZOLE SODIUM 80 MG in NS 100 ML IV ONE (14:00)
--- NOTE | 2017-04-10 14:45 | NUR ---
1st blood transfusion complete pt tolerated well, temp: 98.9, bp: 100/58, hr 91, rr 18, o2 99%, hr 91. iv site patent no s/s of infiltration noted, will get 2nd unit of blood and begin second transfusion. safety measures in place, call light within reach, family at bedside, will continue to monitor
--- NOTE | 2017-04-10 15:05 | NUR ---
2nd BT INITIATION: Blood has been type and crossmatched. Blood sent from blood bank. Information on unit of blood checked against patient wristband at bedside by two nurses. All information matches. Patient or responsible democrat informed of potential complications associated with blood transfusion. Informed of possible transfusion reaction symptoms. Aware of need to notify nurse at once of itching, shortness of breath, flushing, feeling of impending doom, or other symptoms not previously present. Vital signs taken within 5 minutes prior to initiation of transfusion. RN will remain with patient for first 15 minutes of transfusion at which time vital signs will be re-assessed.
--- NOTE | 2017-04-10 15:20 | NUR ---
15 minutes post blood transfusion start pt laying in bed, resting, no s/s of acute distress or pain. vs; temp: 99.0, hr 90, rr 16, o2 98%, bp 91/49, family at bedside, safety measures in place, call light within reach, will continue to monitor
[2017-04-10 16:42] VITALS: BP_SYST 126
--- NOTE | 2017-04-10 17:20 | NUR ---
BLOOD TRANSFUSION COMPLETE PT TOLERATED WELL, VSS, NEW ORDER RECEIVED FOR IV FLUIDS, WILL CARRY OUT AND FOLLOW UP. PATIENT AND FAMILY MADE AWARE AND VERBALIZED AGREEMENT. SAFETY MEASURES IN PLACE, CALL LIGHT WITHIN REACH, WILL FOLLOW UP
[2017-04-10] MEDS: NACL 0.9% 1,000 ML IV SCH (17:27)
--- NOTE | 2017-04-10 18:45 | NUR ---
CLOSING NOTE PATIENT LAYING IN BED, RESTING, EASY TO AROUSE, NO S/S OF ACUTE DISTRESS OR PAIN NOTED, IV FLUIDS INFUSING TO RAC AT ORDERED RATE, GTUBE FEEDING INFUSING AT ORDERED RATE, ALL NEEDS ATTENDED TO THROUGHOUT SHIFT, SAFETY MEASURES MAINTAINED, CALL LIGHT WITHIN REACH, WILL GIVE REPORT TO FOLLOWING SHIFT.
[2017-04-10 19:10] VITALS: BP_SYST 100
--- NOTE | 2017-04-10 19:10 | NUR ---
Initial Notes Received patient in bed, awake, alert, oriented x2. Noted weakness to all extremities are strong, bedrest. Discussed plan fo care with patient and verbalized understanding. Call light in reach, will cont to monitor.
[2017-04-10] MEDS: PANTOPRAZOLE SODIUM 40 MG in NS 50 ML IV SCH ×2 (19:15→21:13)
--- NOTE | 2017-04-10 21:10 | NUR ---
Partial bed bath Partial bed bath was rendered with Waldemar STROUD. No s/s of any distress noted. Call light in reach. Will cont to monitor.
--- NOTE | 2017-04-10 23:18 | NUR ---
G Tube dressing change Change gtube dressing. Noted moderate amount of blood with the old dressing. Denies any pain, no odor, and no residual noted. Call light in reach, will cont to monitor.
[2017-04-11] VITALS (7 sets, daily range): BP systolic 101–118
--- NOTE | 2017-04-11 01:08 | NUR ---
Rounds Patient is resting comfortably with at bedside at this time. No s/s of any distress note. Call light in reach. Will cont to monitor.
[2017-04-11] MEDS: PANTOPRAZOLE SODIUM 40 MG in NS 50 ML IV SCH ×5 (01:17→21:47)
--- NOTE | 2017-04-11 03:15 | NUR ---
Rounds Patient is resting comfortably at this time with at bedside. No s/s of any distress note. Call light in reach. Will cont to monitor.
--- NOTE | 2017-04-11 06:54 | NUR ---
Final Rounds Patient is resting in bed at this time with at bedside. Patient still appear to be weak. No s/s of pain or any distress noted. All needs met and anticipated by staff. Bed in low position with call light in reach, will endorse.
[2017-04-11 07:04] LABS: BASOPHILS % (AUTO) 0.4 % (0.0-2.0); EOSINOPHILS # (AUTO) 0.1 K/uL (0.0-0.4); EOSINOPHILS % (AUTO) 0.8 % (0.0-4.0); LYMPHOCYTES # (AUTO) 0.7 K/uL (1.0-5.5); LYMPHOCYTES % (AUTO) 5.7 % (20.5-51.5); MEAN CORPUSCULAR HEMOGLOBIN 30 pg (27-31); MEAN CORPUSCULAR HGB CONC 34 % (32-36); MEAN CORPUSCULAR VOLUME 88 fL (79.0-98.0); MONOCYTES # (AUTO) 0.6 K/uL (0.0-1.0); MONOCYTES % (AUTO) 4.7 % (1.7-9.3); NEUTROPHILS # (AUTO) 10.7 K/uL (1.8-7.7); NEUTROPHILS % (AUTO) 88.4 % (40.0-70.0); PLATELET COUNT (AUTO) 255 K/uL (130-430); RED BLOOD CELL COUNT(AUTO) 2.01 MIL/uL (4.2-6.2); RED CELL DISTRIBUTION WIDTH 14.8 % (9.0-15.0); WHITE BLOOD COUNT (AUTO) 12.1 K/uL (4.8-10.8)
[2017-04-11 07:14] LABS: CREATININE 0.41 mg/dL (0.55-1.30); POTASSIUM 3.7 mmol/L (3.5-5.1)
--- NOTE | 2017-04-11 07:16 | NUR ---
ATTENDING MD DR LUJAN CALLED RE: RESP DISTRESS. SPOKE TO TREASURE Addendum: 04/11/17 at 0719 by Zunilda Wilder MT/ NORMAN LUJAN -- DR BELLAMY
[2017-04-11 07:32] LABS: HEMATOCRIT 17.7 % (36-48)
--- NOTE | 2017-04-11 07:40 | NUR ---
REPORTED HGB OF 6.[address] BELLAMY, NEW ORDERS RECEIVED FOR STAT PRBC TRANSFUSION AND ADMINISTRATION OF CALCIUM GLUCONATE, ORDER NOTED WILL CARRY OUT STAT, PT MADE AWARE, WILL CONTINUE TO MONITOR CLOSELY
[2017-04-11] MEDS ORDERED: CALCIUM GLUCONATE 1 GM in NS 100 ML IV ONE (07:45)
--- NOTE | 2017-04-11 07:50 | NUR ---
Spoke with Dr Erlinda Negro and spoke with Dr Coffey and notified him about patient c/o pain, low B/P and having anxiety. The good doctor ordered stat cbc and morphine. Refused to order antianxiety. Order noted and carried out.
--- NOTE | 2017-04-11 08:00 | NUR ---
initial note pt laying in bed, weak, complains of being sob, o2 sat 100%, head of bed elevated, iv fluids infusing at ordered rate, gtube feeding infusing, new bright red blood noted to gtube dressing, rn states aware, plan of care discussed, pt verbalized understanding,will continue to monitor closely, awaiting recently ordered medication and blood for transfusion
--- NOTE | 2017-04-11 09:07 | NUR ---
Nutrition Update Dylan Scale 17 noted. Pt admitted for upper GI bleed. Diet: Peptamen 1.5 at 50 ml/hr, Prosource TID, Free Water Flush: 100 ml q4h via GT BMI: 18.2 kg/m2 RD to follow per nutrition care standards.
--- NOTE | 2017-04-11 10:25 | NUR ---
BT INITIATION: Consent signed per patient agreeing to administration of blood. Blood has been type and crossmatched. Blood sent from blood bank. Information on unit of blood checked against patient wristband at bedside by two nurses. All information matches. Patient or responsible green party informed of potential complications associated with blood transfusion. Informed of possible transfusion reaction symptoms. Aware of need to notify nurse at once of itching, shortness of breath, flushing, feeling of impending doom, or other symptoms not previously present. Vital signs taken within 5 minutes prior to initiation of transfusion. RN will remain with patient for first 15 minutes of transfusion at which time vital signs will be re-assessed.
--- NOTE | 2017-04-11 12:50 | NUR ---
blood trans fusion complete, pt tolerated well. iv site patent and intact, no s/s of infiltration noted, temp: 99.3, bp 95/53, hr 96, rr17, o2 99%, family at bedside, no s/s of acute distress, pain or sob, will get 2nd unit of blood and continue to monitor
--- NOTE | 2017-04-11 13:15 | NUR ---
2nd unit of blood started; vss, pt tolerating well, pt aware of s/s of allergic reaction and able to report, family at bedside, will stay with patient for 15 minutes post transfusion
--- NOTE | 2017-04-11 13:30 | NUR ---
15 minutes post infusion start pt stable, no s/s of blood transfusion reaction, vs temp 98.7, hr 94, rr 18, o2 100%, bp 94/[address], call light within reach, will continue to monitor closely
[2017-04-11] MEDS: NACL 0.9% 1,000 ML IV SCH (13:45)
--- NOTE | 2017-04-11 15:50 | NUR ---
transfusion complete pt tolerated well, family at bedside, no s/s of acute distress, gtube dressing clean dry and intact, no s/s of bright red bleeding, no bm noted, vs temp 98.6, hr 85, rr 17, o2 99%, bp 115/ 65 iv fluids restarted and infusing at ordered rate, Protonix drip restarted, will continue to monitor iv site, safety measures in place, call light within reach.
--- NOTE | 2017-04-11 17:10 | NUR ---
DR BELLAMY MAKING ROUNDS, AWARE OF HGB 9.1, HCT 28.7, REPEAT LABS IN AM, CONTINUE TO MONITOR, PT AND FAMILY AWARE AND VERBALIZED UNDERSTANDING
[2017-04-11 17:26] LABS: BASOPHILS % (AUTO) 0.3 % (0.0-2.0); EOSINOPHILS % (AUTO) 0.1 % (0.0-4.0); HEMATOCRIT 28.7 % (36-48); HEMOGLOBIN 9.1 g/dL (12.0-16.0); LYMPHOCYTES # (AUTO) 0.6 K/uL (1.0-5.5); LYMPHOCYTES % (AUTO) 4.6 % (20.5-51.5); MEAN CORPUSCULAR HEMOGLOBIN 28 pg (27-31); MEAN CORPUSCULAR HGB CONC 32 % (32-36); MEAN CORPUSCULAR VOLUME 88 fL (79.0-98.0); MONOCYTES # (AUTO) 0.5 K/uL (0.0-1.0); MONOCYTES % (AUTO) 3.6 % (1.7-9.3); NEUTROPHILS % (AUTO) 91.4 % (40.0-70.0); PLATELET COUNT (AUTO) 198 K/uL (130-430); RED BLOOD CELL COUNT(AUTO) 3.25 MIL/uL (4.2-6.2); WHITE BLOOD COUNT (AUTO) 13.1 K/uL (4.8-10.8)
--- NOTE | 2017-04-11 18:45 | NUR ---
CLOSING NOTE GTUBE FEEDING AND TUBING CHANGED, GTUBE FLUSHED WITH 100ML WATER, NO RESIDUAL NOTED, FAMILY AT BEDSIDE, NO S/S OF BLEEDING NOTED, NO EPISODE OF SOILED GTUBE DRESSING OR DARK BM, ALL NEEDS ATTENDED TO THROUGH OUT SHIFT, SAFETY MEASURES MAINTAINED, CALL LIGHT WITHIN REACH, FAMILY MEMBERS AT BEDSIDE, WILL GIVE REPORT TO FOLLOWING SHIFT
--- NOTE | 2017-04-11 20:10 | NUR ---
INITIAL NOTE PT. RECEIVED RESTING IN BED WITH HOB IN UPRIGHT POSITION, PT IS AA0X4. NO S/S OF SOB OR DISTRESS NOTED. PT. DENIES PAIN AT THIS TIME. SATING WELL ON 4L NC. IV ACCESS NOTED TO RIGHT AC, IV FLUIDS INFUSING WELL ORDERED. NO REDNESS OR SWELLING TO THE SITE. PROTONIX DRIP INFUSING WELL ORDERED. G TUBE NOTED TO ABDOMEN, DRESSING CLEAN DRY AND INTACT. NO RESIDUALS NOTED. FLUSHED WITH 100 CC FREE WATER. FEEDING INFUSING WELL. FAMILY IS AT THE BEDSIDE. PLAN OF CARE HAS BEEN DISCUSSED, ENCOURAGED USE OF CALL LIGHT FOR ANY NEEDS. VERBALIZES UNDERSTANDING. WILL CONTINUE TO MONITOR FOR ANY CHANGES. SAFETY AND FALL PRECAUTIONS IN PLACE. CALL LIGHT IN REACH.
--- NOTE | 2017-04-11 22:15 | NUR ---
ROUNDS PT. RESTING IN BED AT THIS TIME. BED BATH PROVIDED BY LUANNE FERNANDEZ. FAMILY REMAINS AT THE BEDSIDE. IV FLUIDS AND G TUBE FEEDING INFUSING WELL ORDERED. ALL NEEDS MET AT THIS TIME. WILL CONTINUE TO MONITOR FOR CHANGES. SAFETY AND FALL PRECAUTIONS IN PLACE. CALL LIGHT IN REACH.
[2017-04-12] VITALS (10 sets, daily range): BP systolic 118–142
--- NOTE | 2017-04-12 | NUR ---
rounds pt. resting in bed, no s/s of sob or distress noted. denies pain. is at the bedside. iv fluids, protonix drip and iv fluids infusing well as ordered. g tube was flushed with 100 cc free water. will continue to monitor for any changes. safety and fall precautions in place. call light in reach.
[2017-04-12] MEDS: PANTOPRAZOLE SODIUM 40 MG in NS 50 ML IV SCH ×3 (02:22→12:35)
--- NOTE | 2017-04-12 02:26 | NUR ---
ROUNDS PT. RESTING IN BED WITH EYES CLOSED. EASILY AROUSES. HOB IN UPRIGHT POSITION. NO SIGNS OF ACUTE DISTRESS. DENIES PAIN. IV FLUIDS/ PROTONIX DRIP INFUSING WELL ORDERED. G TUBE FEEDING INFUSING WITH NO SIGNS OF ASPIRATION NOTED. REMAINS AT THE BEDSIDE. WILL CONTINUE TO MONITOR FOR ANY CHANGES. SAFETY AND FALL PRECAUTIONS IN PLACE. CALL LIGHT IN REACH.
--- NOTE | 2017-04-12 04:10 | NUR ---
ROUNDS PT. RESTING IN BED WITH EYES CLOSED. CHEST RISE AND FALL NOTED. NO SIGNS OF ACUTE DISTRESS. WILL CONTINUE TO MONITOR FOR CHANGES. SAFETY AND FALL PRECAUTIONS IN PLACE. CALL LIGHT IN REACH.
--- NOTE | 2017-04-12 06:30 | NUR ---
CLOSING NOTE PT. RESTING IN BED QUIETLY. IS AT THE BEDSIDE. IV FLUIDS AND G TUBE FEEDING CONTINUE TO INFUSE WELL. NO COMPLAINTS OF PAIN AT THIS TIME. ALL NECESSARY NEEDS WERE MET THROUGHOUT THE SHIFT. SAFETY AND FALL PRECAUTIONS WERE MAINTAINED. WILL ENDORSE CARE TO AM NURSE. CALL LIGHT IN REACH.
[2017-04-12 06:56] LABS: CALCIUM 7.5 mg/dL (8.4-11.0); CREATININE 0.46 mg/dL (0.55-1.30); POTASSIUM 3.4 mmol/L (3.5-5.1)
[2017-04-12 06:58] LABS: BASOPHILS # (AUTO) 0.1 K/uL (0.0-0.2); BASOPHILS % (AUTO) 0.5 % (0.0-2.0); EOSINOPHILS # (AUTO) 0.1 K/uL (0.0-0.4); EOSINOPHILS % (AUTO) 0.8 % (0.0-4.0); HEMATOCRIT 23.3 % (36-48); HEMOGLOBIN 7.9 g/dL (12.0-16.0); LYMPHOCYTES # (AUTO) 0.5 K/uL (1.0-5.5); LYMPHOCYTES % (AUTO) 3.8 % (20.5-51.5); MEAN CORPUSCULAR HEMOGLOBIN 30 pg (27-31); MEAN CORPUSCULAR HGB CONC 34 % (32-36); MEAN CORPUSCULAR VOLUME 88 fL (79.0-98.0); MONOCYTES # (AUTO) 0.4 K/uL (0.0-1.0); MONOCYTES % (AUTO) 3.2 % (1.7-9.3); NEUTROPHILS # (AUTO) 12.5 K/uL (1.8-7.7); NEUTROPHILS % (AUTO) 91.7 % (40.0-70.0); PLATELET COUNT (AUTO) 203 K/uL (130-430); RED BLOOD CELL COUNT(AUTO) 2.64 MIL/uL (4.2-6.2); RED CELL DISTRIBUTION WIDTH 14.7 % (9.0-15.0); WHITE BLOOD COUNT (AUTO) 13.6 K/uL (4.8-10.8)
--- NOTE | 2017-04-12 08:00 | NUR ---
am notes- in bed awake, alert and oriented. family at bedside. denies any pain or discomfort at this time. on contineos protonix drip. tolerated feeding well. refuses scd's. uses bedside commode and bedpan too. enc. to call for help as needed. call light in reach. will monitor.
--- NOTE | 2017-04-12 09:46 | NUR ---
round pt on bed ammunition assembly ii laborer is on bed side, family on bed side, no pain or discomfort at this time we will continue monitoring.
--- NOTE | 2017-04-12 10:19 | NUR ---
round dr MIA URRUTIA ROUND HE SAY HE WILL PUT BLOOD TRANSFUSION ORDER PT HGB IS 7.9.
[2017-04-12] MEDS ORDERED: CALCIUM CHLORIDE 1 GM in NS 100 ML IV ONE (10:30)
[2017-04-12] MEDS ORDERED: POTASSIUM CHLORIDE 20 MEQ/PKT PACKET GT ONE (10:30)
--- NOTE | 2017-04-12 12:35 | NUR ---
BLOOD TRANSFUSION FIRST UNIT OF BLOOD TRANSFUSION STARTED. WE INFORM TO PT ABOUT BLOOD TRANSFUSION RXN. WE WILL MONITOR.
--- NOTE | 2017-04-12 12:50 | NUR ---
15 MIN AFTER BLOOD TRANSFUSION STARTED V/S SHAYY NO BLOOD TRANSFUSION RXN NOTED AT THIS TIME.
[2017-04-12] MEDS: MORPHINE 2 MG/ML INJ. SYRINGE IVP PRN ×2 (14:56→19:13)
--- NOTE | 2017-04-12 15:33 | NUR ---
blood transfusion 1st unit of blood transfusion done. no reaction noted.
--- NOTE | 2017-04-12 15:51 | NUR ---
CALLED ATTENDING MD DR BELLAMY, RE:CLARIFICATION OF DISCHARGE ORDER, HOME VS TRANSFER TO ACUTE HOSP ([facility]) SPOKE TO ANDREA
--- NOTE | 2017-04-12 16:00 | NUR ---
2ND UNIT BLOOD TRANSFUSION 2ND UNIT OF BLOOD TRANSFUSION STARTED WE WILL MONITOR THE PT.
--- NOTE | 2017-04-12 16:17 | NUR ---
15 MIN AFTER 2nd unit BLOOD TRANSFUSION STARTED V/S SHAYY NO BLOOD TRANSFUSION RXN NOTED AT THIS TIME
--- NOTE | 2017-04-12 18:25 | NUR ---
END OF SHIFT NOTE PT ON BED ALERT OX3, NO SOB OR DISTRESS NOTED AT THIS TIME BLOOD TRANSFUSION STILL RUN PT WILL BE DISCHARGE AFTER BLOOD TRANSFUSION DONE.GTUBE FEEDING AND TUBING CHANGED, GTUBE FLUSHED WITH 100ML WATER , 40ML RESIDUAL NOTED, FAMILY AT BEDSIDE, NO S/S OF BLEEDING NOTED, NO EPISODE OF SOILED GTUBE DRESSING OR DARK BM, ALL NEEDS ATTENDED TO THROUGH OUT SHIFT, SAFETY MEASURES MAINTAINED, CALL LIGHT WITHIN REACH, FAMILY MEMBERS AT BEDSIDE, WILL INDORSE FOR THE NEXT SHIFT.
--- NOTE | 2017-04-12 19:00 | NUR ---
notes- blood transfusion done. d/c instruction given to family at this time. no distress noted. endorse to night nurse.
--- NOTE | 2017-04-12 19:17 | NUR ---
PAIN MEDICATION PAIN MEDICATION IS GIVEN AT THIS TIME ORDERED PAIN LABEL 04/13 WE WILL INDORSE FOR NEXT SHIFT.
--- NOTE | 2017-04-12 20:00 | NUR ---
Patient D/C Home with instructions with Family , IV d/c all personal belongings sent with Family , orders carried out / .
== END 2017-04-12 20:10 | disposition home or self-care (01) | DRG 377 ==
LOC: SED 08:37 → SMU 10:06
PROVIDERS: ADMIT Internal Medicine; ATTEND Internal Medicine
PROC: 30233N1 Transfusion of Nonautologous Red Blood Cells into Peripheral Vein, Percutaneous Approach (ICD-10-PCS; principal; 2017-04-10)
DX: K92.2 Gastrointestinal hemorrhage, unspecified (principal); I21.4 Non-ST elevation (NSTEMI) myocardial infarction; E43 Unspecified severe protein-calorie malnutrition; D62 Acute posthemorrhagic anemia; C15.5 Malignant neoplasm of lower third of esophagus; Z68.1 Body mass index [BMI] 19.9 or less, adult; Z93.1 Gastrostomy status
CPT/HCPCS: 36415; 80048; 80053; 83880; 84484; 85025; 85610-TC; 85730-TC; 86886; 86900; 86901; 86920; 87081; 93005; 93306; C9113; J0610; J2270; J7030; J7040; P9021

== ENCOUNTER 2017-04-20 19:59 | Inpatient (IN) | payer OTHER, MEDICARE ==
[~2017-04-20] VITALS: Ht 160 cm; Wt 46.7 kg
[2017-04-20 19:59] VITALS: BP_SYST 152
--- NOTE | 2017-04-20 19:59 | NUR ---
Patient to ER bed 4 to gown for evaluation. Side rails up. Report given to CECILIA PINEDO.
--- NOTE | 2017-04-20 20:05 | NUR ---
Patient brought to ER by ambulance from home C/O SOB & chest pressure. Patient has terminal esophageal cancer and is cared for at home by family. AAOx4, unlabored rbeathing 99% on room air, normal respiratory effort, G-tube present, no signs of acute distress.
--- NOTE | 2017-04-20 20:09 | NUR ---
ER MD Montillaaw at bedside for evaluation
[2017-04-20] MEDS ORDERED: NACL 0.9% 1,000 ML IV ONE (20:11)
[2017-04-20] MEDS ORDERED: NACL 0.9% 380 ML IV ONE (20:15)
--- NOTE | 2017-04-20 20:20 | NUR ---
20 gauge angiocath placed to RIGHT WRIST. Use of asceptic technique. Opsite placed over site. Blood return noted. Blood for lab drawn from site including lactic acid & blood cultures. Flushed with 10 cc of normal saline. No evidence of infiltration noted. Patient tolerated well.
--- NOTE | 2017-04-20 20:35 | NUR ---
# 16 FR Styles catheter with use of sterile technique. Immediate return of 200 cc yellow clear urine noted. Bedside drainage bag placed below level of bladder. Urine sample collected and sent to lab. Pt tolerated procedure well.
[2017-04-20 20:43] LABS: NEUTROPHILS # (AUTO) 11.1 K/uL (1.8-7.7); RED CELL DISTRIBUTION WIDTH 13.6 % (9.0-15.0)
--- NOTE | 2017-04-20 20:45 | NUR ---
Note undone in EDM - 04/20/17 at 2046 by ERICA # 20 gauge angiocath placed to RIGHT WRIST. Use of asceptic technique. Opsite placed over site. Blood return noted. Blood for lab drawn from site including lactic acid & blood cultures. Flushed with 10 cc of normal saline. No evidence of infiltration noted. Patient tolerated well.
--- NOTE | 2017-04-20 20:50 | NUR ---
Patient C/O 9 chronic back pain, dull, constant. ER MD Ortega aware
[2017-04-20 20:51] LABS: BILIRUBIN,URINE NEGATIVE (NEGATIVE); BLOOD, URINE NEGATIVE (NEGATIVE); CLARITY/URINE CLEAR (CLEAR); COLOR,URINE YELLOW (YELLOW); GLUCOSE,URINE TRACE (NEGATIVE); KETONES,URINE NEGATIVE (NEGATIVE); LEUKOCYTE ESTERASE ,URINE NEGATIVE (NEGATIVE); NITRITE, URINE NEGATIVE (NEGATIVE); PH,URINE 6.5 (5.0-8.0); PROTEIN URINE TRACE (NEGATIVE); UROBILINOGEN,URINE 0.2 (0.2-1.0)
[2017-04-20 20:54] LABS: CALCIUM 7.7 mg/dL (8.4-11.0); CREATININE 0.64 mg/dL (0.55-1.30)
--- NOTE | 2017-04-20 20:55 | NUR ---
Patient refused chest Xray. ER MD Montillaaw aware.
[2017-04-20 20:58] LABS: MEAN CORPUSCULAR HEMOGLOBIN 31 pg (27-31); MEAN CORPUSCULAR HGB CONC 34 % (32-36)
[2017-04-20 20:59] LABS: MEAN CORPUSCULAR VOLUME 92 fL (79.0-98.0); PLATELET COUNT (AUTO) 373 K/uL (130-430); RED BLOOD CELL COUNT(AUTO) 2.11 MIL/uL (4.2-6.2); WHITE BLOOD COUNT (AUTO) 12.5 K/uL (4.8-10.8)
[2017-04-20 21:00] LABS: LYMPHOCYTES # (AUTO) 0.6 K/uL (1.0-5.5); LYMPHOCYTES % (AUTO) 4.9 % (20.5-51.5); MONOCYTES # (AUTO) 0.8 K/uL (0.0-1.0); MONOCYTES % (AUTO) 6.1 % (1.7-9.3)
[2017-04-20] MEDS ORDERED: MORPHINE 4 MG/ML INJ. SYRINGE IVP ONE (21:00)
[2017-04-20 21:01] LABS: POTASSIUM 2.6 mmol/L (3.5-5.1)
[2017-04-20 21:03] LABS: HEMATOCRIT 19.4 % (36-48); HEMOGLOBIN 6.5 g/dL (12.0-16.0)
[2017-04-20 21:04] LABS: TOTAL BILIRUBIN 0.1 mg/dL (0.0-1.0)
[2017-04-20 21:05] LABS: ALBUMIN 2.2 g/dL (3.4-4.8); TOTAL PROTEIN, SERUM 5.4 g/dL (6.4-8.3)
[2017-04-20] MEDS ORDERED: VANCOMYCIN HCL 1,000 MG in NS 250 ML IV ONE (21:15)
[2017-04-20] MEDS ORDERED: KCL 20 mEq in 100 mL (PREMIX) 100 ML IV ONE (21:15)
--- NOTE | 2017-04-20 21:15 | NUR ---
Medication reconciliation completed with information provided by - verbal from daughter "no home meds, tylenol sometimes". Any prior medication reconciliation on file was reviewed and corrected.
[2017-04-20 21:18] LABS: BACTERIA,URINE FEW /HPF (None Seen); MUCUS,URINE None Seen /LPF (None Seen); RBC,URINE NONE SEEN /HPF (0-3)
[2017-04-20] MEDS: AZITHROMYCIN 500 MG in NS 250 ML IV ONE ×2 (21:28→21:31)
[2017-04-20] MEDS ORDERED: AZITHROMYCIN 500 MG/VIAL (ZITHROMAX) IV ONE (21:29)
--- NOTE | 2017-04-20 21:32 | NUR ---
MD Coffey cancelled Azithromax.
--- NOTE | 2017-04-20 21:40 | NUR ---
Unable to obtain a 2nd IV access. MD moralez
--- NOTE | 2017-04-20 21:46 | NUR ---
Patient will be admitted to care of Dr BELLAMY. Admitted to TELE unit. Will go to room 135. Belongings list completed. Summary report printed. Report will be given at bedside.
--- NOTE | 2017-04-20 21:54 | NUR ---
Transfer to [facility] via [facility]S protocol. Licensed nurse present. IV present no signs or symptoms of infiltration.
--- NOTE | 2017-04-20 22:00 | NUR ---
ADMISSION NOTE Received patient from ER via luke, received report from Kaylen PINEDO. Patient admitted with diagnosis of sepsis. Patient oriented to hospital routine, call light, toileting and safety-patient verbalized understanding. Family at the bedside.
[2017-04-20] MEDS ORDERED: VANCOMYCIN HCL 1000 MG/VIAL IV ONE ×2 (22:03)
--- NOTE | 2017-04-20 22:03 | NUR ---
INITIAL ADMISSION NOTE: Patient stable and admitted from ER via [facility]. Family at bedside. Patient breathing evenly and regularly on RA with no difficulties breathing. No acute cardiopulmonary distress noted. Alert and orientated x 4, iraqi speaking, and ambulatory with assistance. Skin intact with no signs of breakdown. IV in R wrist, 20g, patent and infusing fluids. Indwelling Styles catheter, draining to gravity. G tube, flushes well with no residual. Bed in lowest position, call light within reach, and break on. Will continue to monitor patient frequently throughout the shift.
[2017-04-20] MEDS ORDERED: ONDANSETRON HCL 4 MG/2 ML VIAL IVP PRN (22:45)
--- NOTE | 2017-04-20 22:49 | NUR ---
new orders from MD thomas 1.5 gtube feeding at 20ml/hr with 100ml water flush Q6h, protonix 40mg ivp q12h, restoril 30mg qhs prn, morphine 2mg q2h prn for severe pain, and zofran 4mg ivp q4h prn.
[2017-04-20] MEDS: TEMAZEPAM 15 MG CAPSULE PO PRN (23:37)
--- NOTE | 2017-04-20 23:40 | NUR ---
PRN RESTORIL: Patient stated she did not sleep the previous night, administered PRN restoril. Patient denied pain. Will continue to reassess patient frequently. No acute cardiopulmonary distress noted. Bed in lowest position, call light within reach, and break on.
[2017-04-21] VITALS: BP_SYST 119
--- NOTE | 2017-04-21 01:55 | NUR ---
BLOOD TRANSFUSION: Patient stable and sleeping comfortably in bed. No acute cardiopulmonary distress, no pain assessed. Began first unit of PRBCs. Prevital signs stable, running first fifteen minutes of transfusion at lower rate, and will increase with no reactions. Remaining at bedside monitoring the patient for the first 15 minutes.
--- NOTE | 2017-04-21 04:01 | NUR ---
PAIN MEDICATION: Administered 2mg morphine per patient stating 7/10 pain in back. Will reassess shortly.
[2017-04-21] MEDS: MORPHINE 2 MG/ML INJ. SYRINGE IVP PRN ×6 (04:13→23:40)
--- NOTE | 2017-04-21 04:40 | NUR ---
2ND UNIT OF PRBCS STARTED: Patient tolerated first unit of blood with no problems or reactions. Post transfusion vitals and pretransfusion vitals were WNL. Patient is sleeping comfortably in bed. No acute cardiopulmonary distress noted. No pain assessed. Will continue to remain at the bedside during the first fifteen minutes of the transfusion. Bed in lowest position, call light within reach, and break on. Will continue to monitor.
[2017-04-21 06:19] VITALS: BP_SYST 138
--- NOTE | 2017-04-21 06:20 | NUR ---
RN ROUNDS: Patient stable and resting comfortably in bed. Blood transfusion infusing. No acute cardiopulmonary distress noted. New IV started per antibiotic administration. Bed in lowest position, call light within reach, and break on. Will continue to monitor patient frequently throughout the shift.
--- NOTE | 2017-04-21 07:50 | NUR ---
Opening Note Report received from Miladis PINEDO. Patient is currently receiving second unit of PRBC's. IV is on the Right wrist and LFA 20g. Styles cath is in place draining clear yellow urine. G-tube is clamped. Currently waiting for tube feeding. Will continue to monitor.
[2017-04-21 08:00] VITALS: BP_SYST 147
[2017-04-21] MEDS: PANTOPRAZOLE SODIUM 40 MG/VIAL (PROTONIX) IVP SCH ×2 (08:12→20:15)
--- NOTE | 2017-04-21 10:20 | NUR ---
Rounds Patient is resting in bed. Second blood transfusion is finished.
[2017-04-21] MEDS ORDERED: MORPHINE SULFATE 10 MG/5 ML ORAL SOL. UDC GT PRN (11:30)
[2017-04-21] MEDS: DIPHENHYDRAMINE HCL 12.5 MG/5 ML UDC GT SCH ×3 (11:48→23:40)
[2017-04-21 12:00] LABS: HEMATOCRIT 25.5 % (36-48); HEMOGLOBIN 8.5 g/dL (12.0-16.0); LYMPHOCYTES # (AUTO) 0.5 K/uL (1.0-5.5); MEAN CORPUSCULAR HEMOGLOBIN 30 pg (27-31); MEAN CORPUSCULAR HGB CONC 33 % (32-36); MEAN CORPUSCULAR VOLUME 89 fL (79.0-98.0); MONOCYTES # (AUTO) 0.5 K/uL (0.0-1.0); MONOCYTES % (AUTO) 2.9 % (1.7-9.3); NEUTROPHILS # (AUTO) 15.3 K/uL (1.8-7.7); NEUTROPHILS % (AUTO) 94.1 % (40.0-70.0); PLATELET COUNT (AUTO) 290 K/uL (130-430); RED BLOOD CELL COUNT(AUTO) 2.86 MIL/uL (4.2-6.2); RED CELL DISTRIBUTION WIDTH 14.1 % (9.0-15.0); WHITE BLOOD COUNT (AUTO) 16.3 K/uL (4.8-10.8)
[2017-04-21 12:06] LABS: CALCIUM 7.2 mg/dL (8.4-11.0); CREATININE 0.51 mg/dL (0.55-1.30)
--- NOTE | 2017-04-21 12:10 | NUR ---
DISCHARGE PLANNING DC planning order to arrange GT feeding at home. Faxed order to [phone]. Faxed order also to [phone]. Will follow up. Addendum: 04/21/17 at 1603 by Gricelda MONTGOMERY Called [id number] spoke with Yandy who stated under insurance verification. Yandy stated once insurance has been verified order will be processed and delivery arrangements will be made. DCP will follow up.
[2017-04-21 12:49] VITALS: BP_SYST 136
--- NOTE | 2017-04-21 14:30 | NUR ---
Rounds Patient is resting in bed. G-tube is running Peptamin at 50ml/hr. Will continue to monitor.
[2017-04-21 16:28] VITALS: BP_SYST 151
--- NOTE | 2017-04-21 16:30 | NUR ---
Rounds Patient is anxious to leave due to insurance issues. Will call Dr. Coffey.
--- NOTE | 2017-04-21 18:24 | NUR ---
Closing Note Patient is resting in bed. Call light is within reach. Spoke with Dr. Coffey in the nurses station. stated that patient may be discharged home after on more unit of blood and after that patient receives potassium. Will endorse to the oncoming shift.
[2017-04-21] MEDS ORDERED: POTASSIUM CHLORIDE 20 MEQ/PKT PACKET PO ONE (18:30)
--- NOTE | 2017-04-21 18:59 | NUR ---
DVT Prophylaxis Per MD no DVT prophylaxis needed, no new orders given.
[2017-04-21] MEDS ORDERED: cefTRIAXone 1 GM in D5W 50 ML IV SCH (19:00)
--- NOTE | 2017-04-21 19:00 | NUR ---
Spoke with MD Dr. Coffey stated to hold discharge for tonight. Styles catheter was dc'd. Potassium 40meq was given through the g-tube per MD order. IV Rocephin was started was well.
[2017-04-21 19:20] VITALS: BP_SYST 106
--- NOTE | 2017-04-21 19:20 | NUR ---
INITIAL NOTES; -Pt is a/ox4, resting in bed. Family is at bedside. Pt denies any chest pain,pain,sob,dizziness,or any acute distress. IV site rt f/a #20 and left wrist patent, no s/s any infiltration noted. G-tube Peptamen 1.5 feeding @ 50ml/hr. Keep HOB greater than 30 degree entire time. All safety measures in place. Dry and cracked lips noted. Generalize weak noted. Bed locked,low position, side rails x3, bed alarm in place. Discussed poc, all safety measures, and chest pain, pain, or any sob or any acute distress to use call light to inform nurse, family and pt verbalized understanding. Fall precaution in place. Call light w/in reach. Continue to monitor pt.
[2017-04-21] MEDS: POTASSIUM CHLORIDE 20 MEQ/PKT PACKET PO SCH (20:15)
--- NOTE | 2017-04-21 20:20 | NUR ---
BEDPAN WITH ASSISTANCE, VOIDED URINE AFTER AGUERO CATH DISCONTINUED AT 1900 -Assisting pt with bedpan. Pt voided yellow urine output with 200ml. Provided perineal care. Now, pt is cleaned and dry. Call light w/in reach. Call light w/in reach. Continue to monitor pt.
[2017-04-21] MEDS ORDERED: VANCOMYCIN HCL 750 MG in NS 250 ML IV SCH (21:00)
--- NOTE | 2017-04-21 23:40 | NUR ---
ROUNDS; PAIN MEDICATION ADMINISTERED -Pt is c/o generalized pain, gave Morphine Sulfate 2mg IVP. Daughter is at bedside. IV site rt f/a #20 and left wrist patent, no s/s any infiltration noted. Gave midnight medication and flushed well with 100ml water. G-tube Peptamen 1.5 feeding @ 50ml/hr. Keep HOB greater than 30 degree entire time. All safety measures in place. Fall precaution in place. Call light w/in reach. Continue to monitor pt.
--- NOTE | 2017-04-21 23:45 | NUR ---
BEDPAN WITH ASSISTANCE, VOIDED URINE -Assisting pt with bedpan. Pt voided yellow urine output with 120ml. Provided perineal care. Now, pt is cleaned and dry. Call light w/in reach. Call light w/in reach. Continue to monitor pt.
[2017-04-22] VITALS (7 sets, daily range): BP systolic 112–143
--- NOTE | 2017-04-22 01:11 | NUR ---
NOTES; 1 UNIT OF PRBC IS NOT READY YET -RANDY FROM BLOOD BANK STATED THAT HE WILL CALL WHEN PRBC IS READY TO INFUSE.
--- NOTE | 2017-04-22 01:41 | NUR ---
BEDPAN WITH ASSISTANCE, VOIDED URINE -Assisting pt with bedpan. Pt voided yellow urine output with 180ml. Provided perineal care. Now, pt is cleaned and dry. Call light w/in reach. Call light w/in reach. Continue to monitor pt.
[2017-04-22] MEDS: TEMAZEPAM 15 MG CAPSULE PO PRN (01:43)
--- NOTE | 2017-04-22 01:44 | NUR ---
NOTES; GAVE RESTORIL 30MG FOR SLEEPING -Gave restoril 30mg for sleeping upon pt requests. Daughter is at bedside. Call light w/in reach. Continue to monitor pt.
--- NOTE | 2017-04-22 03:47 | NUR ---
NOTES; CALLED TO BLOOD BANK AND SPOKE WITH MATTHEW YUEN STATED THAT PRBC IS NOT READY YET AND WILL CALL WHEN READY. CHARGE NURSE AWARES.
--- NOTE | 2017-04-22 04:25 | NUR ---
NOTES; INFORMED PT THAT PRBC IS NOT READY YET AND FIGUEROA FROM BLOOD BANK WILL NOTIFY WHEN READY
--- NOTE | 2017-04-22 04:26 | NUR ---
BEDPAN WITH ASSISTANCE, VOIDED URINE 250ml -Assisting pt with bedpan. Pt voided yellow urine output with 250ml. Provided perineal care. Now, pt is cleaned and dry. Call light w/in reach. Call light w/in reach. Continue to monitor pt.
--- NOTE | 2017-04-22 05:29 | NUR ---
NOTES; INFORMED PT THAT PRBC IS NOT READY YET AND FIGUEROA FROM BLOOD BANK WILL NOTIFY WHEN READY -Gave Benadryl via G-tube and flushed w/ 100ml. Continuing G-tube feeding. Call light /win reach.
[2017-04-22] MEDS: DIPHENHYDRAMINE HCL 12.5 MG/5 ML UDC GT SCH ×3 (05:39→18:47)
--- NOTE | 2017-04-22 06:29 | NUR ---
NOTES; CALLED TO BLOOD BANK AND SPOKE WITH FIGUEROA -FIGUEROA STATED THAT PRBC IS NOT READY YET AND NEEDS TO MATCH AND WILL CALL WHEN READY. CHARGE NURSE AWARES.
--- NOTE | 2017-04-22 06:54 | NUR ---
CLOSING NOTES; -Pt is resting in bed. Daughter is at bedside. No s/s any acute distress noted. IV site rt f/a #20 and left wrist patent, no s/s any infiltration noted. G-tube Peptamen 1.5 feeding @ 50ml/hr. Keep HOB greater than 30 degree entire time. All safety measures in place. Generalize weak noted. Bed locked,low position, side rails x3, bed alarm in place. Fall precaution in place. Call light w/in reach. Will endorse to incoming nurse to continue care and to call Blood Bank to see if PRBC is ready to be transfuse.
--- NOTE | 2017-04-22 08:00 | NUR ---
ASSUMPTION OF CARE: RECEIVED PT ASLEEP, AROUSABLE VIA VERBAL STIMULI, DX:RISK FOR INJURY, R/T SEPSIS, ESOPHAGEAL CA, PT ORIENTED X4, ABLE TO COMMUNICATE NEEDS, BREATHING UNLABORED, BREATH SOUNDS ARE CLEAR, IV SITES INTACT, PATENT, NO REDNESS OR SWELLING, NO S/S OF DISTRESS, VS WNL, ORIENTED TO UNIT, CALL LIGHT PLACED WITHIN REACH, WILL CONT' TO MONITOR AND ASSESS.
[2017-04-22 08:04] LABS: MEAN CORPUSCULAR HEMOGLOBIN 32 pg (27-31); MEAN CORPUSCULAR HGB CONC 34 % (32-36); MEAN CORPUSCULAR VOLUME 92 fL (79.0-98.0); PLATELET COUNT (AUTO) 296 K/uL (130-430); RED CELL DISTRIBUTION WIDTH 15.3 % (9.0-15.0); WHITE BLOOD COUNT (AUTO) 19.5 K/uL (4.8-10.8)
[2017-04-22 08:10] LABS: ALBUMIN 1.9 g/dL (3.4-4.8); CALCIUM 7.6 mg/dL (8.4-11.0); CREATININE 0.71 mg/dL (0.55-1.30); PHOSPHORUS 2.1 mg/dL (2.7-4.5); POTASSIUM 3.7 mmol/L (3.5-5.1); TOTAL BILIRUBIN 0.2 mg/dL (0.0-1.0); TOTAL PROTEIN, SERUM 4.6 g/dL (6.4-8.3)
[2017-04-22 08:16] LABS: RED BLOOD CELL COUNT(AUTO) 1.97 MIL/uL (4.2-6.2)
[2017-04-22 08:19] LABS: HEMOGLOBIN 6.2 g/dL (12.0-16.0)
[2017-04-22 08:20] LABS: HEMATOCRIT 18.1 % (36-48)
[2017-04-22] MEDS: MORPHINE 2 MG/ML INJ. SYRINGE IVP PRN ×4 (08:32→18:46)
[2017-04-22] MEDS: PANTOPRAZOLE SODIUM 40 MG/VIAL (PROTONIX) IVP SCH (08:32)
[2017-04-22] MEDS: POTASSIUM CHLORIDE 20 MEQ/PKT PACKET PO SCH (08:32)
--- NOTE | 2017-04-22 08:55 | NUR ---
BLOOD TRANSFUSION: PT RECEIVING 1 UNIT OF PRBC'S FOR HGB 6.2/HCT 18.1, NO S/S OF ADVERSE REACTION, IV SITE REMAINS INTACT, PATENT, CALL LIGHT PLACED WITHIN REACH, WILL CONT' TO MONITOR AND ASSESS.
--- NOTE | 2017-04-22 09:00 | NUR ---
[employer] ARTISTIC DIRECTOR: MORNING MEDS GIVEN, PER ORDERED BY Omar, TOLERATED WELL, WILL CONT' TO MONITOR AND ASSESS.
--- NOTE | 2017-04-22 09:31 | NUR ---
Nutrition Update Dylan Scale 16 noted. Pt admitted for sepsis. Diet: Peptamen 1.5 at 50 ml/hr, Prosource TID, Free Water Flush: 100 ml Q6h via GT BMI: 18.2 kg/m2 RD to follow per nutrition care standards.
[2017-04-22 10:16] LABS: BAND % (MANUAL) 1 % (0-6); LYMPHOCYTES % (MANUAL) 8 % (20-46)
[2017-04-22 10:17] LABS: ATYPICAL LYMPHOCYTES % 0 % (0-0); BASOPHILS % (MANUAL) 0 % (0-2); EOSINOPHILS % (MANUAL) 0 % (0-7); MONOCYTES % (MANUAL) 5 % (0-11)
[2017-04-22] MEDS ORDERED: AMOX-423 GT (11:34)
[2017-04-22] MEDS ORDERED: [UNRECOGNIZED DRUG - CODE] GT (11:40)
--- NOTE | 2017-04-22 11:42 | NUR ---
DISCHARGE PLANNING DC order home. Faxed referral to [phone]. Home Health nurse will call patient/family to resume home health visits. Called [facility] spoke with Yandy who requested medical documentation for change in feeding formula. PAULA Mendez will follow up with . Addendum: 04/22/17 at 2252 by Gricelda MONTGOMERY Received call from Nir at [facility], faxed requested progress note with medical necessity for change in feeding formula. Nir stated will take 3-4days to deliver to patient. Addendum: 04/22/17 at 1636 by Andrea Cuello RN >Met with pt and her dtr/Donna at bedside, notified them that dr. Coffey is planning to discharge the pt. home today after blood transfusion is completed. Peptamin solution supply up to 5 days was arranged by dawit Guerrero for the pt. to take home while waiting for [facility] can make delivery to the pt. 's home. KHRIS Vick made aware and to call dr. Coffey for dc order.
--- NOTE | 2017-04-22 11:50 | NUR ---
BLOOD TRANSFUSION: PT RECEIVING 2ND UNIT OF PRBC'S, NO S/S OF ADVERSE REACTION, IV SITE REMAINS INTACT, PATENT, CALL LIGHT PLACED WITHIN REACH, WILL CONT' TO MONITOR AND ASSESS.
--- NOTE | 2017-04-22 13:00 | NUR ---
NURSES NOTES: OBSERVED PT DURING HOURLY ROUNDING, ASLEEP WITH NO S/S OF DISTRESS, NO INDICATION OF ADVERSE REACTION TO BLOOD TRANSFUSION, IV SITE REMAINS INTACT, VSS, FAMILY AT BEDSIDE, CALL LIGHT WITHIN REACH, WILL CONT' TO MONITOR AND ASSESS.
--- NOTE | 2017-04-22 14:45 | NUR ---
BLOOD TRANSFUSION: PT RECEIVING 3rd UNIT OF PRBC'S, NO S/S OF ADVERSE REACTION, IV SITE REMAINS INTACT, PATENT, CALL LIGHT PLACED WITHIN REACH, WILL CONT' TO MONITOR AND ASSESS.
--- NOTE | 2017-04-22 16:28 | NUR ---
Nutrition Note [facility] dept provided 9x 1 L bags of Peptamen 1.5 TF formula for pt prior to D/C. Pt, daughter, CM, and primary RN aware. Please refer to Nutrition Assessment for further details. RD to continue to follow per nutrition care standards.
--- NOTE | 2017-04-22 18:00 | NUR ---
BLLOD TRANSFUSION: 3RD UNIT PRBC'S COMPLETED, VSS, AFEBRILE, NO S/S OF ADVERSE REACTIONS, IV SITE FLUSHED, REMAINS INTACT, WILL CONT' TO MONITOR AND ASSESS.
--- NOTE | 2017-04-22 20:00 | NUR ---
STARTING NOTE SURGICAL TECH Patient in bed resting comfortably. and daughter at the bedside. The patient and family await discharge home with G-tube feeding, no oxygen. No pain or discomfort noted. Pain medication has been administered at the end of day shift. Report received from day shift nurse. Fall precautions in place. Patient walked to the bathroom assisted by the nurse and her .
--- NOTE | 2017-04-22 20:40 | NUR ---
PATIENT IS DISCHARGED Patient left the hospital on her own transportation accompanied by her and her daughter. The patient did not request pain medication. She was alert, oriented and comfortable. Discharge packet, instructions and prescriptions given to the patient.
--- NOTE | 2017-04-24 11:43 | NUR ---
Discharge Follow Up Phone Calls: [employer] called and left a voice mail for pt ([phone]) on 04/23/17. OUTREACH REPRESENTATIVE called pt today and pt's dtr, February, answered the phone. Pt's dtr states that pt is doing "ok"; there are no questions regarding discharge or medication instructions; pt received a visit from [facility] on 04/23/17; pt scheduled to receive Peptamin from [facility] around 04/26/17. Pt's dtr did not express any other needs or concerns and denied the need for additional follow up at this time. No further follow up phone calls required at this time.
== END 2017-04-22 20:15 | disposition home or self-care (01) | DRG 871 ==
LOC: SED 19:59 → STU 21:45 → SMU 04-22 14:27
PROVIDERS: ADMIT Internal Medicine; ATTEND Internal Medicine
PROC: 30233N1 Transfusion of Nonautologous Red Blood Cells into Peripheral Vein, Percutaneous Approach (ICD-10-PCS; principal; 2017-04-21)
DX: A41.9 Sepsis, unspecified organism (principal); E43 Unspecified severe protein-calorie malnutrition; D62 Acute posthemorrhagic anemia; N39.0 Urinary tract infection, site not specified; Z68.1 Body mass index [BMI] 19.9 or less, adult; E87.6 Hypokalemia; E83.51 Hypocalcemia; R19.7 Diarrhea, unspecified; M54.9 Dorsalgia, unspecified; Z85.01 Personal history of malignant neoplasm of esophagus
CPT/HCPCS: 36415; 71010; 72072-TC; 72100-TC; 80048; 80053; 81000-TC; 82306; 83605; 83735-TC; 84100-TC; 85007; 85025; 85027; 86886; 86900; 86901; 86920; 87040-TC; 87081; 93005; 96361; 96365; 96366; 96368; 96375; 99291; C9113; J0456; J0696; J1956; J2270; J2405; J3370; J3480; J7030; J7040; J7050; J7060; P9021

== ENCOUNTER 2017-04-25 15:24 | Inpatient (IN) | payer OTHER, MEDICARE ==
[~2017-04-25] VITALS: Ht 160 cm; Wt 50.3 kg
[~2017-04-25 15:24] MED LIST changes: +AMOX-423 GT; -COLL100 GT; -FER300L GT; -MULT240L3 GT; -PANT40SU2 GT; -SUCR1TAB PO; +[UNRECOGNIZED DRUG - CODE] GT
[2017-04-25 15:38] VITALS: BP_SYST 137
[2017-04-25] MEDS ORDERED: NACL 0.9% 1,000 ML IV ONE ×2 (16:15→17:00)
[2017-04-25 16:16] LABS: MEAN CORPUSCULAR HEMOGLOBIN 32 pg (27-31); MEAN CORPUSCULAR HGB CONC 33 % (32-36); MEAN CORPUSCULAR VOLUME 96 fL (79.0-98.0); PLATELET COUNT (AUTO) 237 K/uL (130-430); RED CELL DISTRIBUTION WIDTH 16.6 % (9.0-15.0)
[2017-04-25 16:21] LABS: RED BLOOD CELL COUNT(AUTO) 1.88 MIL/uL (4.2-6.2)
[2017-04-25 16:26] LABS: CALCIUM 7.4 mg/dL (8.4-11.0); CREATININE 0.67 mg/dL (0.55-1.30); POTASSIUM 3.1 mmol/L (3.5-5.1)
[2017-04-25 16:27] LABS: INR 0.9 (0.8-1.2); PROTHROMBIN TIME 10.1 SECS (9.5-12.5)
[2017-04-25 16:30] LABS: ALBUMIN 2.1 g/dL (3.4-4.8); TOTAL BILIRUBIN 0.2 mg/dL (0.0-1.0); TOTAL PROTEIN, SERUM 4.7 g/dL (6.4-8.3)
[2017-04-25 16:46] LABS: BAND % (MANUAL) 4 % (0-6); EOSINOPHILS % (MANUAL) 0 % (0-7); LYMPHOCYTES % (MANUAL) 4 % (20-46); MONOCYTES % (MANUAL) 4 % (0-11)
[2017-04-25 16:47] LABS: BASOPHILS % (MANUAL) 0 % (0-2)
[2017-04-25] MEDS ORDERED: VANCOMYCIN HCL 1,000 MG in NS 250 ML IV ONE (17:00)
[2017-04-25] MEDS ORDERED: PIPERACILLIN/TAZO 3.375 GM in NS 50 ML IV ONE (17:00)
[2017-04-25] MEDS ORDERED: PANTOPRAZOLE SODIUM 40 MG in NS 50 ML IV SCH (17:00)
[2017-04-25] MEDS ORDERED: PANTOPRAZOLE SODIUM 80 MG in NS 100 ML IV ONE (17:00)
[2017-04-25] MEDS ORDERED: VANCOMYCIN HCL 1000 MG/VIAL IV ONE (17:19)
[2017-04-25] MEDS ORDERED: PANTOPRAZOLE SODIUM 40 MG/VIAL (PROTONIX) ONE ×2 (17:20)
[2017-04-25] MEDS ORDERED: PIPERACILLIN/TAZOBACTAM 3.375 GM/VIAL (ZOSYN) IV ONE (17:20)
[2017-04-25] MEDS ORDERED: ACETAMINOPHEN 500 MG TABLET GT PRN (18:15)
[2017-04-25] MEDS ORDERED: COMMUNICATION ORDER XX ONE (18:15)
[2017-04-25] MEDS ORDERED: ONDANSETRON HCL 4 MG/2 ML VIAL IVP PRN (18:15)
[2017-04-25 18:21] VITALS: BP_SYST 115
[2017-04-25 20:02] VITALS: BP_SYST 119
[2017-04-25] MEDS: D5LR 1,000 ML IV SCH (21:53)
[2017-04-25] MEDS ORDERED: SUCRALFATE 1 GM/10 ML UDC GT SCH (23:30)
[2017-04-25 23:40] VITALS: BP_SYST 123
[2017-04-26] MEDS ORDERED: PANTOPRAZOLE SODIUM 40 MG/VIAL (PROTONIX) ONE (00:07)
[2017-04-26] MEDS: PIPERACILLIN/TAZO 4.5GM/DEX-IS 100 ML IV SCH ×2 (01:00→09:38)
[2017-04-26] MEDS ORDERED: PIPERACILLIN/TAZOBACTAM 4.5 GM/VIAL (ZOSYN) IV ONE (01:54)
[2017-04-26] MEDS ORDERED: POTASSIUM CHLORIDE 20 MEQ/PKT PACKET PO ONE (02:00)
[2017-04-26] MEDS: SUCRALFATE 1 GM/10 ML UDC GT SCH ×2 (02:01→06:18)
[2017-04-26 03:43] VITALS: BP_SYST 124
[2017-04-26] MEDS ORDERED: MORPHINE SULFATE 10 MG/5 ML ORAL SOL. UDC GT SCH (06:00)
[2017-04-26 08:00] VITALS: BP_SYST 131
[2017-04-26] MEDS ORDERED: POTASSIUM CHLORIDE 20 MEQ/PKT PACKET PO SCH (09:00)
[2017-04-26] MEDS: D5LR 1,000 ML IV SCH (09:38)
[2017-04-26 10:20] VITALS: BP_SYST 124
[2017-04-26 11:30] VITALS: BP_SYST 126
== END 2017-04-26 11:59 | disposition home or self-care (01) | DRG 374 ==
LOC: SED 15:24 → SMU 16:58
PROVIDERS: ADMIT Internal Medicine; ATTEND Internal Medicine
PROC: 30233N1 Transfusion of Nonautologous Red Blood Cells into Peripheral Vein, Percutaneous Approach (ICD-10-PCS; principal; 2017-04-25)
DX: C15.9 Malignant neoplasm of esophagus, unspecified (principal); E43 Unspecified severe protein-calorie malnutrition; K92.2 Gastrointestinal hemorrhage, unspecified; D62 Acute posthemorrhagic anemia; Z68.1 Body mass index [BMI] 19.9 or less, adult; R62.7 Adult failure to thrive; R13.10 Dysphagia, unspecified; Z85.01 Personal history of malignant neoplasm of esophagus; Z87.01 Personal history of pneumonia (recurrent)
CPT/HCPCS: 36415; 80053; 83605; 83690-TC; 83880; 84484; 85007; 85027; 85610-TC; 86886; 86900; 86901; 86920; 87040-TC; 87081; 93005; 96365; 96375; 99285; C9113; J2543; J3370; J7030; J7040; J7050; J7060; J7120; P9021

== ENCOUNTER 2017-05-01 21:49 | Emergency (ER) | payer OTHER, MEDICARE ==
[~2017-05-01] VITALS: Ht 160 cm; Wt 45.4 kg
[2017-05-01 21:53] VITALS: BP_SYST 151
--- NOTE | 2017-05-01 22:02 | NUR ---
Placed in room 08 . Placed on potline monitor, blood pressure machine and pulse oximeter. To gown for exam. Side rails up. Report given to Liza
--- NOTE | 2017-05-01 22:05 | NUR ---
Patient AAO x3, sitting in bed, c/o shortness of breath, no c/o pain at this time. Patient recently discharged on the 04/26/[address] [facility], Currently taking augmentin. Patient Afebrile with tachypnea. Patient denies chest pain. Patient has g-tube. Sp O2 98% RA. No acute distress noted. MD aware of patient condition. Will continue to monitor. Addendum: 05/01/17 at 2237 by KARYNA Patient states she was not prescribed augmentin at discharge and is not currently taking any antibiotics.
--- NOTE | 2017-05-01 22:10 | NUR ---
# 20 gauge angiocath placed to L Forearm. Use of asceptic technique. Opsite placed over site. Blood return noted. Two patient identifiers used. Blood for lab drawn from site. Flushed with 10 cc of normal saline. No evidence of infiltration noted. Patient tolerated well.
--- NOTE | 2017-05-01 22:30 | NUR ---
Patient family requesting mouth swabs and ice chips for patient. Md olea. Patient given mouth swabs and a small cup of ice chips with spoon. Patient tolerated well.
--- NOTE | 2017-05-01 22:40 | NUR ---
ER at bedside examining patient.
[2017-05-01 22:55] LABS: BASOPHILS % (AUTO) 0.1 % (0.0-2.0); EOSINOPHILS % (AUTO) 0.3 % (0.0-4.0); HEMATOCRIT 26.7 % (36-48); HEMOGLOBIN 9.5 g/dL (12.0-16.0); LYMPHOCYTES # (AUTO) 0.3 K/uL (1.0-5.5); LYMPHOCYTES % (AUTO) 1.8 % (20.5-51.5); MEAN CORPUSCULAR HEMOGLOBIN 35 pg (27-31); MEAN CORPUSCULAR HGB CONC 36 % (32-36); MEAN CORPUSCULAR VOLUME 98 fL (79.0-98.0); MONOCYTES # (AUTO) 0.6 K/uL (0.0-1.0); MONOCYTES % (AUTO) 4.3 % (1.7-9.3); NEUTROPHILS # (AUTO) 13.2 K/uL (1.8-7.7); NEUTROPHILS % (AUTO) 93.5 % (40.0-70.0); PLATELET COUNT (AUTO) 396 K/uL (130-430); RED BLOOD CELL COUNT(AUTO) 2.71 MIL/uL (4.2-6.2); RED CELL DISTRIBUTION WIDTH 16.7 % (9.0-15.0); WHITE BLOOD COUNT (AUTO) 14.1 K/uL (4.8-10.8)
[2017-05-01 23:02] LABS: INR 0.9 (0.8-1.2); PROTHROMBIN TIME 9.7 SECS (9.5-12.5)
[2017-05-01 23:07] LABS: CALCIUM 8.5 mg/dL (8.4-11.0); CREATININE 0.61 mg/dL (0.55-1.30)
[2017-05-01 23:09] LABS: POTASSIUM 2.8 mmol/L (3.5-5.1)
[2017-05-01 23:10] LABS: ALBUMIN 2.1 g/dL (3.4-4.8); TOTAL BILIRUBIN 0.2 mg/dL (0.0-1.0); TOTAL PROTEIN, SERUM 5.9 g/dL (6.4-8.3)
--- NOTE | 2017-05-01 23:30 | NUR ---
Patient c/o 05/14 body pain , md informed. Patient and family requesting pain medications. Will medicate per md orders.
[2017-05-01 23:51] LABS: BILIRUBIN,URINE NEGATIVE (NEGATIVE); BLOOD, URINE NEGATIVE (NEGATIVE); COLOR,URINE YELLOW (YELLOW); GLUCOSE,URINE NEGATIVE (NEGATIVE); KETONES,URINE NEGATIVE (NEGATIVE); LEUKOCYTE ESTERASE ,URINE NEGATIVE (NEGATIVE); NITRITE, URINE NEGATIVE (NEGATIVE); PH,URINE 7.5 (5.0-8.0); PROTEIN URINE NEGATIVE (NEGATIVE)
[2017-05-01 23:54] LABS: CLARITY/URINE HAZY (CLEAR)
[2017-05-02] MEDS ORDERED: MORPHINE 2 MG/ML INJ. SYRINGE IVP ONE
[2017-05-02] MEDS ORDERED: ONDANSETRON HCL 4 MG/2 ML VIAL IVP ONE
--- NOTE | 2017-05-02 00:29 | NUR ---
Patient reports pain 2/10 30 minutes after administration of Morphine 2 mg. No adverse reactions noted. Will continue to monitor. Patient sleeping.
--- NOTE | 2017-05-02 00:30 | NUR ---
Patient resting quietly. No acute distress noted. Vital signs within normal range.
[2017-05-02] MEDS ORDERED: POTASSIUM CHLORIDE 20 MEQ/PKT PACKET GT ONE (01:00)
[2017-05-02 01:30] VITALS: BP_SYST 137
--- NOTE | 2017-05-02 01:30 | NUR ---
Patient given written and verbal discharge instructions and verbalizes understanding. ER MD discussed with patient the results and treatment provided. Patient in stable condition. ID arm band removed. IV catheter removed intact and dressing applied, no active bleeding. Rx of potassium given. Patient educated on pain management and to follow up with PMD. Pain Scale 0/10. Opportunity for questions provided and answered.
== END 2017-05-02 01:30 | disposition home or self-care (01) ==
LOC: SED 21:49
DX: E87.6 Hypokalemia (principal); Z85.01 Personal history of malignant neoplasm of esophagus
CPT/HCPCS: 36415; 80053; 81003; 85025; 85610; 85730; 87081; 93005; 96374; 96375; 99285; J2270; J2405

== ENCOUNTER 2017-05-06 18:29 | Inpatient (IN) | payer OTHER, MEDICARE ==
[~2017-05-06] VITALS: Ht 160 cm; Wt 48.1 kg
[2017-05-06 18:29] VITALS: BP_SYST 124
[2017-05-06 19:45] LABS: BASOPHILS # (AUTO) 0.1 K/uL (0.0-0.2); BASOPHILS % (AUTO) 0.4 % (0.0-2.0); EOSINOPHILS # (AUTO) 0.1 K/uL (0.0-0.4); EOSINOPHILS % (AUTO) 0.5 % (0.0-4.0); LYMPHOCYTES # (AUTO) 0.5 K/uL (1.0-5.5); LYMPHOCYTES % (AUTO) 3.4 % (20.5-51.5); MEAN CORPUSCULAR HEMOGLOBIN 32 pg (27-31); MEAN CORPUSCULAR HGB CONC 34 % (32-36); MEAN CORPUSCULAR VOLUME 93 fL (79.0-98.0); MONOCYTES # (AUTO) 0.8 K/uL (0.0-1.0); MONOCYTES % (AUTO) 5.4 % (1.7-9.3); NEUTROPHILS # (AUTO) 13.3 K/uL (1.8-7.7); NEUTROPHILS % (AUTO) 90.3 % (40.0-70.0); PLATELET COUNT (AUTO) 535 K/uL (130-430); RED BLOOD CELL COUNT(AUTO) 1.64 MIL/uL (4.2-6.2); WHITE BLOOD COUNT (AUTO) 14.8 K/uL (4.8-10.8)
[2017-05-06 19:54] LABS: HEMOGLOBIN 5.2 g/dL (12.0-16.0)
[2017-05-06 19:55] LABS: HEMATOCRIT 15.2 % (36-48)
[2017-05-06 20:12] LABS: CREATININE 0.41 mg/dL (0.55-1.30)
[2017-05-06 20:20] LABS: TOTAL BILIRUBIN 0.1 mg/dL (0.0-1.0); TOTAL PROTEIN, SERUM 5.5 g/dL (6.4-8.3)
[2017-05-06] MEDS ORDERED: PANTOPRAZOLE SODIUM 40 MG/VIAL (PROTONIX) IVP ONE (21:00)
[2017-05-06] MEDS: NACL 0.9% 1,000 ML IV SCH (21:00)
[2017-05-06] MEDS ORDERED: MORPHINE 2 MG/ML INJ. SYRINGE IVP ONE (21:00)
[2017-05-06 21:35] VITALS: BP_SYST 120
[2017-05-06] MEDS ORDERED: DIPHENHYDRAMINE INJ 50 MG/ML VIAL IVP PRN (22:30)
[2017-05-06] MEDS ORDERED: MORPHINE SULFATE 10 MG/5 ML ORAL SOL. UDC GT PRN (23:00)
[2017-05-07] MEDS: SUCRALFATE 1 GM/10 ML UDC GT SCH ×5 (00:01→23:45)
[2017-05-07] MEDS: DIPHENHYDRAMINE HCL 25 MG CAPSULE GT SCH ×5 (00:01→23:45)
[2017-05-07] MEDS ORDERED: MILK OF MAGNESIA 30 ML UDC GT ONE (00:15)
[2017-05-07 00:30] VITALS: BP_SYST 117
[2017-05-07 03:29] VITALS: BP_SYST 116; BP_SYST 171
[2017-05-07] MEDS: MORPHINE 2 MG/ML INJ. SYRINGE IVP PRN ×6 (04:03→20:38)
[2017-05-07] MEDS: PANTOPRAZOLE SODIUM 40 MG/VIAL (PROTONIX) IVP SCH ×3 (06:35→22:34)
[2017-05-07 08:00] VITALS: BP_SYST 123
[2017-05-07] MEDS ORDERED: MILK OF MAGNESIA 30 ML UDC GT SCH (09:00)
[2017-05-07 12:00] VITALS: BP_SYST 107
[2017-05-07] MEDS: MILK OF MAGNESIA 30 ML UDC GT SCH ×3 (13:15→20:37)
[2017-05-07 13:41] LABS: BILIRUBIN,URINE NEGATIVE (NEGATIVE); BLOOD, URINE NEGATIVE (NEGATIVE); CLARITY/URINE CLEAR (CLEAR); COLOR,URINE YELLOW (YELLOW); GLUCOSE,URINE NEGATIVE (NEGATIVE); KETONES,URINE NEGATIVE (NEGATIVE); LEUKOCYTE ESTERASE ,URINE NEGATIVE (NEGATIVE); NITRITE, URINE NEGATIVE (NEGATIVE); PH,URINE 6.5 (5.0-8.0); PROTEIN URINE NEGATIVE (NEGATIVE); UROBILINOGEN,URINE 0.2 (0.2-1.0)
[2017-05-07 16:00] VITALS: BP_SYST 112
[2017-05-07 17:28] LABS: BASOPHILS # (AUTO) 0.2 K/uL (0.0-0.2); BASOPHILS % (AUTO) 1.1 % (0.0-2.0); EOSINOPHILS # (AUTO) 0.1 K/uL (0.0-0.4); EOSINOPHILS % (AUTO) 0.6 % (0.0-4.0); HEMATOCRIT 28.6 % (36-48); HEMOGLOBIN 9.6 g/dL (12.0-16.0); LYMPHOCYTES # (AUTO) 0.3 K/uL (1.0-5.5); MEAN CORPUSCULAR HEMOGLOBIN 30 pg (27-31); MEAN CORPUSCULAR HGB CONC 34 % (32-36); MEAN CORPUSCULAR VOLUME 89 fL (79.0-98.0); MONOCYTES # (AUTO) 0.9 K/uL (0.0-1.0); MONOCYTES % (AUTO) 5.6 % (1.7-9.3); NEUTROPHILS # (AUTO) 14.6 K/uL (1.8-7.7); NEUTROPHILS % (AUTO) 90.7 % (40.0-70.0); PLATELET COUNT (AUTO) 462 K/uL (130-430); RED BLOOD CELL COUNT(AUTO) 3.21 MIL/uL (4.2-6.2); RED CELL DISTRIBUTION WIDTH 16.2 % (9.0-15.0); WHITE BLOOD COUNT (AUTO) 16.1 K/uL (4.8-10.8)
[2017-05-07 20:36] VITALS: BP_SYST 115
[2017-05-07] MEDS: NACL 0.9% 1,000 ML IV SCH (23:46)
[2017-05-08] VITALS (8 sets, daily range): BP systolic 106–137
[2017-05-08] MEDS: MORPHINE 2 MG/ML INJ. SYRINGE IVP PRN ×6 (01:27→16:36)
[2017-05-08] MEDS: SUCRALFATE 1 GM/10 ML UDC GT SCH ×3 (05:46→18:01)
[2017-05-08] MEDS: DIPHENHYDRAMINE HCL 25 MG CAPSULE GT SCH ×3 (05:46→18:01)
[2017-05-08] MEDS: PANTOPRAZOLE SODIUM 40 MG/VIAL (PROTONIX) IVP SCH ×2 (05:46→16:42)
[2017-05-08] MEDS: MILK OF MAGNESIA 30 ML UDC GT SCH ×3 (09:14→18:01)
[2017-05-08 11:07] LABS: BASOPHILS % (AUTO) 0.2 % (0.0-2.0); EOSINOPHILS # (AUTO) 0.2 K/uL (0.0-0.4); HEMATOCRIT 26.9 % (36-48); HEMOGLOBIN 8.9 g/dL (12.0-16.0); LYMPHOCYTES # (AUTO) 0.2 K/uL (1.0-5.5); LYMPHOCYTES % (AUTO) 1.6 % (20.5-51.5); MEAN CORPUSCULAR HEMOGLOBIN 30 pg (27-31); MEAN CORPUSCULAR HGB CONC 33 % (32-36); MEAN CORPUSCULAR VOLUME 90 fL (79.0-98.0); MONOCYTES # (AUTO) 0.8 K/uL (0.0-1.0); MONOCYTES % (AUTO) 5.1 % (1.7-9.3); NEUTROPHILS # (AUTO) 13.9 K/uL (1.8-7.7); NEUTROPHILS % (AUTO) 92.1 % (40.0-70.0); PLATELET COUNT (AUTO) 493 K/uL (130-430); RED BLOOD CELL COUNT(AUTO) 2.99 MIL/uL (4.2-6.2); RED CELL DISTRIBUTION WIDTH 16.4 % (9.0-15.0); WHITE BLOOD COUNT (AUTO) 15.1 K/uL (4.8-10.8)
[2017-05-08] MEDS: NACL 0.9% 1,000 ML IV SCH (13:00)
[2017-05-08] MEDS ORDERED: PANT40SU2 GT (15:01)
[2017-05-08] MEDS ORDERED: MAGN400O4 GT (15:01)
[2017-05-08] MEDS ORDERED: SUCR1ORA2 PO (15:02)
== END 2017-05-08 19:00 | disposition home or self-care (01) | DRG 374 ==
LOC: SED 18:29 → SMU 20:55
PROVIDERS: ADMIT Internal Medicine; ATTEND Internal Medicine
PROC: 30233N1 Transfusion of Nonautologous Red Blood Cells into Peripheral Vein, Percutaneous Approach (ICD-10-PCS; principal; 2017-05-07)
DX: C15.9 Malignant neoplasm of esophagus, unspecified (principal); E43 Unspecified severe protein-calorie malnutrition; D62 Acute posthemorrhagic anemia; Z68.1 Body mass index [BMI] 19.9 or less, adult; K59.00 Constipation, unspecified; G89.29 Other chronic pain; M54.89 Other dorsalgia; Z66 Do not resuscitate; Z93.1 Gastrostomy status; Z79.899 Other long term (current) drug therapy
CPT/HCPCS: 36415; 80053; 81003; 84484; 85025; 86886; 86900; 86901; 86920; 87081; 93005; 96374; 99291; C9113; J1200; J2270; J7030; J7050; P9021; Q0163

== ENCOUNTER 2017-05-13 19:16 | Inpatient (IN) | payer OTHER, MEDICARE ==
[~2017-05-13] VITALS: Ht 160 cm; Wt 47.2 kg
[~2017-05-13 19:16] MED LIST changes: -AMOX-423 GT; +MAGN400O4 GT; +PANT40SU2 GT; +SUCR1ORA2 PO
[2017-05-13 19:18] VITALS: BP_SYST 120
[2017-05-13 20:12] LABS: MEAN CORPUSCULAR HEMOGLOBIN 30 pg (27-31); MEAN CORPUSCULAR HGB CONC 33 % (32-36); MEAN CORPUSCULAR VOLUME 89 fL (79.0-98.0); PLATELET COUNT (AUTO) 474 K/uL (130-430); RED BLOOD CELL COUNT(AUTO) 2.03 MIL/uL (4.2-6.2); RED CELL DISTRIBUTION WIDTH 14.8 % (9.0-15.0); WHITE BLOOD COUNT (AUTO) 25.1 K/uL (4.8-10.8)
[2017-05-13 20:24] LABS: HEMATOCRIT 18.1 % (36-48)
[2017-05-13 20:31] LABS: CREATININE 0.71 mg/dL (0.55-1.30)
[2017-05-13 20:34] LABS: INR 0.9 (0.8-1.2)
[2017-05-13 20:36] LABS: ALBUMIN 2.3 g/dL (3.4-4.8); TOTAL BILIRUBIN 0.3 mg/dL (0.0-1.0); TOTAL PROTEIN, SERUM 6.5 g/dL (6.4-8.3)
[2017-05-13 20:52] LABS: ATYPICAL LYMPHOCYTES % 0 % (0-0); BAND % (MANUAL) 3 % (0-6); BASOPHILS % (MANUAL) 0 % (0-2); EOSINOPHILS % (MANUAL) 0 % (0-7); LYMPHOCYTES % (MANUAL) 6 % (20-46); MONOCYTES % (MANUAL) 3 % (0-11)
[2017-05-13 21:37] LABS: BILIRUBIN,URINE NEGATIVE (NEGATIVE); BLOOD, URINE NEGATIVE (NEGATIVE); CLARITY/URINE SL HAZY (CLEAR); COLOR,URINE YELLOW (YELLOW); GLUCOSE,URINE NEGATIVE (NEGATIVE); KETONES,URINE NEGATIVE (NEGATIVE); LEUKOCYTE ESTERASE ,URINE 1+ (NEGATIVE); NITRITE, URINE NEGATIVE (NEGATIVE); PROTEIN URINE NEGATIVE (NEGATIVE); UROBILINOGEN,URINE 0.2 (0.2-1.0)
[2017-05-13] MEDS ORDERED: MORPHINE 2 MG/ML INJ. SYRINGE IVP ONE (21:45)
[2017-05-13 21:55] LABS: BACTERIA,URINE MODERATE /HPF (None Seen); MUCUS,URINE 2+ /LPF (None Seen); RBC,URINE 0-3 /HPF (0-3)
[2017-05-13 21:56] LABS: FINE GRANULAR CASTS,URINE 0-10 /LPF (None Seen)
[2017-05-13 22:02] VITALS: BP_SYST 106
[2017-05-13] MEDS ORDERED: PANTOPRAZOLE SODIUM 40 MG/VIAL (PROTONIX) IVP ONE (22:30)
[2017-05-13] MEDS ORDERED: PANTOPRAZOLE SODIUM 40 MG in NS 50 ML IV SCH (22:30)
[2017-05-13] MEDS ORDERED: ONDANSETRON HCL 4 MG/2 ML VIAL IVP PRN (22:30)
[2017-05-13] MEDS ORDERED: LOADING DOSE: PANTOPRAZOLE SODIUM 80 MG in NS 100 ML IVP ONE (22:30)
[2017-05-13 23:59] VITALS: BP_SYST 96
[2017-05-14] MEDS: SUCRALFATE 1 GM/10 ML UDC GT SCH ×5 (00:09→18:14)
[2017-05-14] MEDS: DIPHENHYDRAMINE HCL 25 MG CAPSULE PO SCH ×3 (00:14→15:28)
[2017-05-14] MEDS: MORPHINE SULFATE 10 MG/5 ML ORAL SOL. UDC GT PRN ×5 (00:18→15:29)
[2017-05-14] MEDS ORDERED: PANTOPRAZOLE SODIUM 40 MG/VIAL (PROTONIX) ONE ×2 (00:33→02:47)
[2017-05-14] MEDS: PANTOPRAZOLE SODIUM 40 MG in NS 50 ML IVP SCH ×5 (02:46→15:28)
[2017-05-14 04:08] VITALS: BP_SYST 93
[2017-05-14 08:00] VITALS: BP_SYST 99
[2017-05-14] MEDS ORDERED: MILK OF MAGNESIA 30 ML UDC PO SCH (09:00)
[2017-05-14 12:31] VITALS: BP_SYST 135
[2017-05-14 16:45] VITALS: BP_SYST 127
[2017-05-14 17:29] LABS: BASOPHILS % (AUTO) 0.1 % (0.0-2.0); HEMATOCRIT 29.2 % (36-48); HEMOGLOBIN 9.8 g/dL (12.0-16.0); LYMPHOCYTES # (AUTO) 0.4 K/uL (1.0-5.5); LYMPHOCYTES % (AUTO) 2.1 % (20.5-51.5); MEAN CORPUSCULAR HEMOGLOBIN 29 pg (27-31); MEAN CORPUSCULAR HGB CONC 34 % (32-36); MEAN CORPUSCULAR VOLUME 87 fL (79.0-98.0); MONOCYTES # (AUTO) 0.9 K/uL (0.0-1.0); MONOCYTES % (AUTO) 4.9 % (1.7-9.3); NEUTROPHILS # (AUTO) 16.7 K/uL (1.8-7.7); NEUTROPHILS % (AUTO) 92.9 % (40.0-70.0); PLATELET COUNT (AUTO) 189 K/uL (130-430); RED BLOOD CELL COUNT(AUTO) 3.34 MIL/uL (4.2-6.2); RED CELL DISTRIBUTION WIDTH 13.1 % (9.0-15.0)
[2017-05-14] MEDS ORDERED: cefTRIAXone 1 GM in D5W 50 ML IV SCH (18:45)
[2017-05-14 21:44] VITALS: BP_SYST 91
== END 2017-05-14 22:48 | disposition home or self-care (01) | DRG 393 ==
LOC: SED 19:16 → SMU 21:08
PROVIDERS: ADMIT Internal Medicine; ATTEND Internal Medicine
PROC: 30233N1 Transfusion of Nonautologous Red Blood Cells into Peripheral Vein, Percutaneous Approach (ICD-10-PCS; principal; 2017-05-14)
DX: K94.23 Gastrostomy malfunction (principal); E43 Unspecified severe protein-calorie malnutrition; K92.2 Gastrointestinal hemorrhage, unspecified; D62 Acute posthemorrhagic anemia; C15.9 Malignant neoplasm of esophagus, unspecified; Z68.1 Body mass index [BMI] 19.9 or less, adult; R13.10 Dysphagia, unspecified; Z66 Do not resuscitate; G89.4 Chronic pain syndrome; Z93.1 Gastrostomy status
CPT/HCPCS: 36415; 80053; 81000-TC; 83880; 84484; 85007; 85025; 85027; 85610-TC; 86886; 86900; 86901; 86920; 87081; 87086; 87186-TC; 93005; 96374; 99285; C9113; J0696; J2270; J7050; J7060; P9021; Q0163

== ENCOUNTER 2017-05-21 17:45 | Inpatient (IN) | payer OTHER, MEDICARE ==
[~2017-05-21] VITALS: Ht 160 cm; Wt 46.5 kg
--- NOTE | 2017-05-21 00:43 | NUR ---
VOID: PATIENT ASKED FOR BEDPAN TO VOID. TOLERATED WELL. HAS CLEAR PASTORA COLOR . Addendum: 05/22/17 at 0545 by Kari Cho RN TIME AND DATE OF THIS NOTE IS DATE.05/21/17 ,TIME 2100HR.
[2017-05-21 17:45] VITALS: BP_SYST 116
--- NOTE | 2017-05-21 17:45 | NUR ---
Pt placed to ER bed 02, to gown, to scan coordinator. Pt report given to KHRIS Sauer.
--- NOTE | 2017-05-21 18:00 | NUR ---
Patient, awake,alert and oriented x 4, brought in by atul from home for generalized weakness. Patient presents as pale in color, patient complaining of generalized weakness. Patient has hx of esophagus cancer. No other complaints/injuries per patient, none noted.
--- NOTE | 2017-05-21 18:10 | NUR ---
Dr. Deal at bedside examining patient. Updated on patient condition.
--- NOTE | 2017-05-21 18:44 | NUR ---
Pt refused chest x ray, Dr Deal is aware
[2017-05-21 18:54] LABS: BASOPHILS # (AUTO) 0.1 K/uL (0.0-0.2); BASOPHILS % (AUTO) 0.4 % (0.0-2.0); CALCIUM 8.3 mg/dL (8.4-11.0); CREATININE 0.52 mg/dL (0.55-1.30); EOSINOPHILS % (AUTO) 0.2 % (0.0-4.0); LYMPHOCYTES # (AUTO) 0.5 K/uL (1.0-5.5); LYMPHOCYTES % (AUTO) 2.9 % (20.5-51.5); MEAN CORPUSCULAR HEMOGLOBIN 32 pg (27-31); MEAN CORPUSCULAR HGB CONC 33 % (32-36); MEAN CORPUSCULAR VOLUME 98 fL (79.0-98.0); MONOCYTES # (AUTO) 0.5 K/uL (0.0-1.0); MONOCYTES % (AUTO) 3.5 % (1.7-9.3); NEUTROPHILS # (AUTO) 14.6 K/uL (1.8-7.7); PLATELET COUNT (AUTO) 561 K/uL (130-430); POTASSIUM 3.9 mmol/L (3.5-5.1); RED CELL DISTRIBUTION WIDTH 23.3 % (9.0-15.0); WHITE BLOOD COUNT (AUTO) 15.7 K/uL (4.8-10.8)
[2017-05-21 18:58] LABS: TOTAL BILIRUBIN 0.2 mg/dL (0.0-1.0); TOTAL PROTEIN, SERUM 5.5 g/dL (6.4-8.3)
[2017-05-21 19:00] LABS: HEMATOCRIT 15.4 % (36-48); RED BLOOD CELL COUNT(AUTO) 1.56 MIL/uL (4.2-6.2)
[2017-05-21 19:09] LABS: BILIRUBIN,URINE NEGATIVE (NEGATIVE); BLOOD, URINE NEGATIVE (NEGATIVE); CLARITY/URINE HAZY (CLEAR); COLOR,URINE YELLOW (YELLOW); GLUCOSE,URINE NEGATIVE (NEGATIVE); KETONES,URINE NEGATIVE (NEGATIVE); LEUKOCYTE ESTERASE ,URINE NEGATIVE (NEGATIVE); NITRITE, URINE NEGATIVE (NEGATIVE); PROTEIN URINE NEGATIVE (NEGATIVE); UROBILINOGEN,URINE 0.2 (0.2-1.0)
--- NOTE | 2017-05-21 19:13 | NUR ---
Patient resting quietly. No acute distress noted. Vital signs within normal range. Endorsed care to KHRIS alexis. Report given at bedside via SBAR method.
[2017-05-21 19:14] LABS: INR 0.9 (0.8-1.2); PROTHROMBIN TIME 9.5 SECS (9.5-12.5)
--- NOTE | 2017-05-21 19:15 | NUR ---
Medication reconciliation completed with information provided by patient's family. Any prior medication reconciliation on file was reviewed and corrected.
[2017-05-21] MEDS ORDERED: PANTOPRAZOLE SODIUM 40 MG/VIAL (PROTONIX) IVP SCH (19:30)
[2017-05-21] MEDS ORDERED: D5LR 1,000 ML IV SCH (19:30)
--- NOTE | 2017-05-21 19:30 | NUR ---
Patient will be admitted to care of Dr. Coffey. Admitted to med surg unit. Will go to room 103B. Belongings list completed. Summary report printed. Report given to admitting RN.
--- NOTE | 2017-05-21 19:35 | NUR ---
ADMISSION: The patient, SHERIDAN BARRETT, 67 y/o, F admitted by HIMANSHU BELLAMY MD, was given written information regarding hospital policies, unit procedures and contact persons.
[2017-05-21 19:49] VITALS: BP_SYST 124
--- NOTE | 2017-05-21 20:30 | NUR ---
VOID: FAMILY ASKED FOR BED WASHBURN FOR PATIENT TO VOID.
--- NOTE | 2017-05-21 20:39 | NUR ---
PAGED; DR.HAKAK BUSTAMANTE FOR ORDER. SPOKE WITH ZANDER,
--- NOTE | 2017-05-21 20:50 | NUR ---
ADMISSION PHYSICAL ASSESSMENT DONE. CALL LIGHT AND PHONE SYSTEM PROVIDED TO FAMILIES AND PATIENT WITH UNDERSTANDING. PATIENT PALE /ALERT ORIENTED X4. IVF AND IV MEDS GIVEN. WILL MONITOR CLOSELY.
--- NOTE | 2017-05-21 21:20 | NUR ---
PATIENT SIGNED BLOOD TRANSFUSION CONSENT WITH UNDERSTANDING.
--- NOTE | 2017-05-21 21:25 | NUR ---
DR. BELLAMY MADE ROUNDS. SEEN PATIENT WITH ORDERS AND SPOKE TO FAMILIES.
[2017-05-21] MEDS ORDERED: PANTOPRAZOLE SODIUM 40 MG in NS 50 ML IV SCH (21:45)
[2017-05-21] MEDS ORDERED: MORPHINE 2 MG/ML INJ. SYRINGE IVP PRN (21:45)
[2017-05-21] MEDS ORDERED: DIPHENHYDRAMINE HCL 12.5 MG/5 ML UDC GT SCH (21:45)
[2017-05-21 22:00] VITALS: BP_SYST 132
[2017-05-21 22:44] LABS: IRON (SERUM) 21 mcg/dL (37-145); TOTAL IRON BIND. CAPACITY 221 ug/dL (250-450)
--- NOTE | 2017-05-21 22:55 | NUR ---
BLOOD TRANSFUSION: HGB.5.0 /HCT 15.4 .IST UNIT OF PRBC INITIATED AFTER VITAL SIGNS TAKEN,WNL.2 RNS CHECKED BLOOD BLOOD PRODUCT WITH PATIENT STATING HER NAME ,DATE OF .MR CHECKED. IV SITE CLEAR W/ BLOOD RETURN TO LFA. VITAL SIGNS TAKEN PER BLOOD TX POLICY.
[2017-05-21] MEDS: ACETAMINOPHEN/CODEINE 300 MG-30 MG TABLET PO SCH (23:36)
--- NOTE | 2017-05-22 | NUR ---
STAYED WITH PATIENT FOR 1/2 HR ,NO REACTIONS. RATE INCREASED INCREASED GRADUALLY UP TO 120ML/HR.
--- NOTE | 2017-05-22 00:05 | NUR ---
TUBE FEEDING: ISOSOURCE 1.5 VIS PEG TUBE INITIATED AT 30ML/HR THEN UP TO 50ML/HR AFTER 1HR. WATER FLUSH STARTED. G TUBE FEEDING DRESSING DRY AND INTACT. ORAL CARE DONE.
[2017-05-22 01:39] VITALS: BP_SYST 132
--- NOTE | 2017-05-22 01:45 | NUR ---
2ND UNIT OF PRBC STARTED AFTER 2 RN CHECKED BLOOD PRODUCTS WITH DATE OF ,FULL NAME ,MR# VITAL SIGNS /IV SITE.
--- NOTE | 2017-05-22 01:59 | NUR ---
15 min after 2nd unit of blood transfusion : 2nd unit started at 0145 , Pt is comfortable , sleeping on and off, easily arousable , pt denied any discomfort, allergic or transfusion reaction at this time; vitals are stable; will continue to monitor. at bedside . Addendum: 05/22/17 at 0204 by Sujata Hatfield RN AN. STAYED WITH PT FOR THE FIRST 15 MIN .
--- NOTE | 2017-05-22 02:00 | NUR ---
VOID: VOIDED VIA BED WASHBURN,CLEAR PASTORA URINE.
[2017-05-22] MEDS: DIPHENHYDRAMINE HCL 12.5 MG/5 ML UDC GT SCH ×2 (03:45→06:47)
--- NOTE | 2017-05-22 04:45 | NUR ---
2ND UNIT PRBC COMPLETED ,NO UNTOWARD REACTIONS.
--- NOTE | 2017-05-22 05:00 | NUR ---
VOID: PATIENT ASKED FOR BED WASHBURN TO VOID. PLACED.VOIDED CALER APSTORA URINE GOOD AMOUNT.
--- NOTE | 2017-05-22 05:10 | NUR ---
3RD UNIT OF PRBC STARTED WITH NEW TUBING,AFTER 2 RNS CHECKED BLOOD PRODUCT FULL NAME /DATE OF /MR #/VITAL SINGS.
--- NOTE | 2017-05-22 05:25 | NUR ---
15 MINS. OBSERVED ,NOC REACTIONS.
[2017-05-22 06:04] VITALS: BP_SYST 117
--- NOTE | 2017-05-22 06:35 | NUR ---
CLOSING/PAIN/VOID: PATIENT ASKED FOR BED WASHBURN TO VOID. CHIARA CARE DONE. ROUTINE PAIN MED GIVEN VIA G TUBE. REFUSE BENADRYL,RE. MAKES HER SLEEP. 3RD UNIT PRBC STILL INFUSING,TOLERATING WELL. INFORMED LAB. TO DRAW CBC AFTER TRANSFUSION. COLOR LIGHT PINKISH ON HER FACE AND HANDS FEET FEELS WARM.WATER FLUSH TO G TUBE DONE. CALL LIGHT WITHIN REACH, BED IN LOW POSITION. ALERT ORIENTED X3.SCD PLACED. WILL GIVE REPORT TO AM RN FOR CONTINUITY OF CARE.
[2017-05-22] MEDS: ACETAMINOPHEN/CODEINE 300 MG-30 MG TABLET PO SCH ×3 (06:49→15:59)
--- NOTE | 2017-05-22 07:33 | NUR ---
PRIMARY MD DR BELLAMY CALLED RE: MEDICATION ORDER. SPOKE TO FREDI
[2017-05-22 08:17] VITALS: BP_SYST 122
[2017-05-22] MEDS: PANTOPRAZOLE SODIUM 40 MG in NS 50 ML IV SCH ×2 (08:26→12:08)
[2017-05-22] MEDS: SUCRALFATE 1 GM/10 ML UDC PO SCH ×2 (08:26→13:13)
--- NOTE | 2017-05-22 08:30 | NUR ---
Blood transfusion completed PRBC 3RD unit of PRBC completed ,vitals sign stable no sign of fluid overload , Protonix drip at 8 mg/hour started after explaining to patient and the need of medication very much familiar with medication as verbalized., will continue to monitor.
[2017-05-22] MEDS ORDERED: MILK OF MAGNESIA 30 ML UDC GT SCH (09:00)
--- NOTE | 2017-05-22 10:05 | NUR ---
Nutrition Update Dylan Scale 18 noted. Pt admitted for acute blood loss anemia. Diet: Isosource 1.5 at 50 ml/hr, Prosource TID, Free Water Flush: 50 Q6H via GT BMI: 18.2 kg/m2 RD to follow per nutrition care standards.
--- NOTE | 2017-05-22 10:26 | NUR ---
Patient resting no sign of acte discomfort , tolerating Gtube feeding well no nausea no vomiting
--- NOTE | 2017-05-22 11:47 | NUR ---
Patient is awake , denies any pain ,daughter iza at the bedside discuss plan of care , blood drawn for CBC.
[2017-05-22 11:54] LABS: BASOPHILS # (AUTO) 0.2 K/uL (0.0-0.2); BASOPHILS % (AUTO) 1.3 % (0.0-2.0); EOSINOPHILS # (AUTO) 0.1 K/uL (0.0-0.4); EOSINOPHILS % (AUTO) 0.4 % (0.0-4.0); HEMATOCRIT 31.4 % (36-48); HEMOGLOBIN 10.4 g/dL (12.0-16.0); LYMPHOCYTES # (AUTO) 0.4 K/uL (1.0-5.5); LYMPHOCYTES % (AUTO) 2.8 % (20.5-51.5); MEAN CORPUSCULAR HEMOGLOBIN 30 pg (27-31); MEAN CORPUSCULAR HGB CONC 33 % (32-36); MEAN CORPUSCULAR VOLUME 90 fL (79.0-98.0); MONOCYTES # (AUTO) 0.5 K/uL (0.0-1.0); MONOCYTES % (AUTO) 3.6 % (1.7-9.3); NEUTROPHILS # (AUTO) 13.1 K/uL (1.8-7.7); NEUTROPHILS % (AUTO) 91.9 % (40.0-70.0); PLATELET COUNT (AUTO) 469 K/uL (130-430); RED BLOOD CELL COUNT(AUTO) 3.49 MIL/uL (4.2-6.2); RED CELL DISTRIBUTION WIDTH 17.3 % (9.0-15.0); WHITE BLOOD COUNT (AUTO) 14.3 K/uL (4.8-10.8)
[2017-05-22 12:47] VITALS: BP_SYST 136
[2017-05-22] MEDS ORDERED: SOD FERRIC GLUC COMPLEX/SUC 125 MG in NS 100 ML IV SCH (14:15)
[2017-05-22 14:40] VITALS: BP_SYST 139
--- NOTE | 2017-05-22 14:40 | NUR ---
Seen and examined by Dr. Coffey spoke to patient and daughter CBC result much better to discharge home today after the dose of ferliciet.
--- NOTE | 2017-05-22 16:00 | NUR ---
Dagoberto MCGOVERNPB completed with out allergic reaction.
--- NOTE | 2017-05-22 16:10 | NUR ---
GTUBE DRESSING DONE PERIWOUND INTACT NO REDNESS , CLEANED WITH SALINE TAP/DRY DRY DRESSING APPLIED., FLUSH GTUBE WITH FEEDING .
--- NOTE | 2017-05-22 16:15 | NUR ---
D/C Patient Patient given medication reconciliation form and D/C instructions. Exit Care provided. Patient verbalized understanding. MD discussed with patient the results and treatment provided. Patient in stable condition, ID band removed. IV catheter removed, intact and dressing applied, no active bleeding. Patient educated on pain management. All belongings sent with patient.
[2017-05-22 16:50] VITALS: BP_SYST 132
--- NOTE | 2017-05-22 17:30 | NUR ---
Discharge home via wheelchair accompanied by the daughter , vitals stable.
== END 2017-05-22 17:30 | disposition home or self-care (01) | DRG 374 ==
LOC: SED 17:45 → SMU 19:21
PROVIDERS: ADMIT Internal Medicine; ATTEND Internal Medicine
PROC: 30233N1 Transfusion of Nonautologous Red Blood Cells into Peripheral Vein, Percutaneous Approach (ICD-10-PCS; principal; 2017-05-21)
PROC: 30233N1 Transfusion of Nonautologous Red Blood Cells into Peripheral Vein, Percutaneous Approach (ICD-10-PCS; 2017-05-22)
DX: C15.9 Malignant neoplasm of esophagus, unspecified (principal); E43 Unspecified severe protein-calorie malnutrition; D62 Acute posthemorrhagic anemia; K92.2 Gastrointestinal hemorrhage, unspecified; Z68.1 Body mass index [BMI] 19.9 or less, adult; G89.29 Other chronic pain; Z93.1 Gastrostomy status
CPT/HCPCS: 36415; 80053; 81003; 83540-TC; 83550-TC; 83880; 84484; 85025; 85610-TC; 85730-TC; 86886; 86900; 86901; 86920; 87081; 93005; 99285; C9113; J2916; J7050; J7120; P9021

== ENCOUNTER 2017-05-27 16:48 | Inpatient (IN) | payer OTHER, MEDICARE ==
[~2017-05-27] VITALS: Ht 160 cm; Wt 46.7 kg
[2017-05-27 16:57] VITALS: BP_SYST 127
[2017-05-27 18:18] LABS: BASOPHILS # (AUTO) 0.1 K/uL (0.0-0.2); EOSINOPHILS # (AUTO) 0.1 K/uL (0.0-0.4); MEAN CORPUSCULAR HEMOGLOBIN 29 pg (27-31); MEAN CORPUSCULAR HGB CONC 33 % (32-36); MEAN CORPUSCULAR VOLUME 89 fL (79.0-98.0); RED BLOOD CELL COUNT(AUTO) 2.13 MIL/uL (4.2-6.2)
[2017-05-27 18:25] LABS: BASOPHILS % (AUTO) 0.5 % (0.0-2.0); EOSINOPHILS % (AUTO) 0.9 % (0.0-4.0); LYMPHOCYTES # (AUTO) 0.6 K/uL (1.0-5.5); LYMPHOCYTES % (AUTO) 3.9 % (20.5-51.5); MONOCYTES # (AUTO) 1.3 K/uL (0.0-1.0); MONOCYTES % (AUTO) 8.3 % (1.7-9.3); NEUTROPHILS # (AUTO) 13.9 K/uL (1.8-7.7); NEUTROPHILS % (AUTO) 86.4 % (40.0-70.0); PLATELET COUNT (AUTO) 547 K/uL (130-430); RED CELL DISTRIBUTION WIDTH 15.6 % (9.0-15.0)
[2017-05-27] MEDS ORDERED: HYDROmorphone 1 MG INJ. 1 MG/ML AMPUL IVP ONE (18:30)
[2017-05-27 18:39] LABS: HEMOGLOBIN 6.2 g/dL (12.0-16.0)
[2017-05-27 18:41] LABS: CALCIUM 8.5 mg/dL (8.4-11.0); CREATININE 0.56 mg/dL (0.55-1.30); POTASSIUM 4.3 mmol/L (3.5-5.1)
[2017-05-27] MEDS ORDERED: MORPHINE 2 MG/ML INJ. SYRINGE IVP ONE (19:00)
[2017-05-27] MEDS ORDERED: ONDANSETRON HCL 4 MG/2 ML VIAL IVP ONE (19:00)
[2017-05-27] MEDS ORDERED: ONDANSETRON HCL 4 MG/2 ML VIAL IVP PRN (19:30)
[2017-05-27] MEDS ORDERED: PANTOPRAZOLE SODIUM 80 MG in NS 100 ML IV ONE (19:30)
[2017-05-27] MEDS ORDERED: SOD FERRIC GLUC COMPLEX/SUC 125 MG in NS 100 ML IV SCH (19:30)
[2017-05-27] MEDS ORDERED: MILK OF MAGNESIA 30 ML UDC PO PRN ×2 (19:30→19:45)
[2017-05-27] MEDS ORDERED: NACL 0.9% 1,000 ML IV ONE (19:30)
[2017-05-27 19:38] VITALS: BP_SYST 131
[2017-05-27 20:00] VITALS: BP_SYST 131
[2017-05-27] MEDS ORDERED: DIPHENHYDRAMINE INJ 50 MG/ML VIAL IVP PRN (20:00)
[2017-05-27] MEDS ORDERED: ACETAMINOPHEN 325 MG TABLET PO PRN (20:00)
[2017-05-27] MEDS ORDERED: PANTOPRAZOLE SODIUM 40 MG/VIAL (PROTONIX) ONE (21:01)
[2017-05-27] MEDS: SUCRALFATE 1 GM/10 ML UDC GT SCH (21:02)
[2017-05-27] MEDS: MORPHINE 2 MG/ML INJ. SYRINGE IVP PRN (22:52)
[2017-05-27] MEDS: PANTOPRAZOLE SODIUM 40 MG in NS 50 ML IV SCH (23:07)
[2017-05-28] VITALS (8 sets, daily range): BP systolic 136–166
[2017-05-28] MEDS ORDERED: ACETAMINOPHEN 650 MG/20.3 ML UDC GT PRN (00:45)
[2017-05-28 00:55] LABS: BILIRUBIN,URINE NEGATIVE (NEGATIVE); BLOOD, URINE NEGATIVE (NEGATIVE); CLARITY/URINE CLEAR (CLEAR); COLOR,URINE YELLOW (YELLOW); GLUCOSE,URINE NEGATIVE (NEGATIVE); KETONES,URINE NEGATIVE (NEGATIVE); LEUKOCYTE ESTERASE ,URINE NEGATIVE (NEGATIVE); NITRITE, URINE NEGATIVE (NEGATIVE); PH,URINE 8.5 (5.0-8.0); PROTEIN URINE NEGATIVE (NEGATIVE); UROBILINOGEN,URINE 0.2 (0.2-1.0)
[2017-05-28] MEDS: SUCRALFATE 1 GM/10 ML UDC GT SCH ×2 (02:15→08:32)
[2017-05-28] MEDS: MORPHINE 2 MG/ML INJ. SYRINGE IVP PRN ×2 (02:44→08:32)
[2017-05-28] MEDS: PANTOPRAZOLE SODIUM 40 MG in NS 50 ML IV SCH (04:23)
[2017-05-28 11:05] LABS: BASOPHILS # (AUTO) 0.1 K/uL (0.0-0.2); BASOPHILS % (AUTO) 0.3 % (0.0-2.0); EOSINOPHILS % (AUTO) 0.2 % (0.0-4.0); HEMATOCRIT 29.6 % (36-48); LYMPHOCYTES # (AUTO) 0.5 K/uL (1.0-5.5); LYMPHOCYTES % (AUTO) 2.5 % (20.5-51.5); MEAN CORPUSCULAR HEMOGLOBIN 29 pg (27-31); MEAN CORPUSCULAR HGB CONC 34 % (32-36); MEAN CORPUSCULAR VOLUME 87 fL (79.0-98.0); MONOCYTES # (AUTO) 1.1 K/uL (0.0-1.0); MONOCYTES % (AUTO) 5.6 % (1.7-9.3); NEUTROPHILS % (AUTO) 91.4 % (40.0-70.0); PLATELET COUNT (AUTO) 405 K/uL (130-430); RED BLOOD CELL COUNT(AUTO) 3.42 MIL/uL (4.2-6.2); RED CELL DISTRIBUTION WIDTH 13.7 % (9.0-15.0); WHITE BLOOD COUNT (AUTO) 19.7 K/uL (4.8-10.8)
[2017-05-28 11:23] LABS: RETICULOCYTE COUNT 3.7 % (0.5-1.5)
[2017-05-28 11:25] LABS: ALBUMIN 2.1 g/dL (3.4-4.8); CALCIUM 8.3 mg/dL (8.4-11.0); CREATININE 0.39 mg/dL (0.55-1.30); TOTAL BILIRUBIN 0.5 mg/dL (0.0-1.0)
[2017-05-28] MEDS ORDERED: MORPHINE 4 MG/ML INJ. SYRINGE IVP ONE (12:15)
[2017-05-28] MEDS ORDERED: MORPHINE 4 MG/ML INJ. SYRINGE ONE (12:16)
== END 2017-05-28 15:55 | disposition home health service (06) | DRG 377 ==
LOC: SED 16:48 → SMU 18:48
PROVIDERS: ADMIT Internal Medicine; ATTEND Internal Medicine
PROC: 30233N1 Transfusion of Nonautologous Red Blood Cells into Peripheral Vein, Percutaneous Approach (ICD-10-PCS; principal; 2017-05-27)
DX: K92.2 Gastrointestinal hemorrhage, unspecified (principal); E43 Unspecified severe protein-calorie malnutrition; C15.9 Malignant neoplasm of esophagus, unspecified; D62 Acute posthemorrhagic anemia; Z68.1 Body mass index [BMI] 19.9 or less, adult; Z66 Do not resuscitate; G89.4 Chronic pain syndrome; Z79.899 Other long term (current) drug therapy
CPT/HCPCS: 36415; 80048; 80053; 81003; 85025; 85044-TC; 86886; 86900; 86901; 86920; 87081; 96374; 96375; 99285; C9113; J1170; J1200; J2270; J2405; J2916; J7030; J7040; J7050; P9021

== ENCOUNTER 2017-06-02 18:18 | Inpatient (IN) | payer OTHER, MEDICARE ==
[~2017-06-02] VITALS: Ht 160 cm; Wt 49.0 kg
[2017-06-02 18:26] VITALS: BP_SYST 143
[2017-06-02] MEDS ORDERED: MORPHINE 2 MG/ML INJ. SYRINGE IVP ONE (18:45)
[2017-06-02] MEDS ORDERED: NS 500 ML IV ONE (18:45)
[2017-06-02] MEDS ORDERED: ONDANSETRON HCL 4 MG/2 ML VIAL IVP ONE (18:45)
[2017-06-02] MEDS ORDERED: D5/0.45 NS 1,000 ML IV ONE (18:45)
[2017-06-02 19:31] LABS: MEAN CORPUSCULAR HEMOGLOBIN 30 pg (27-31); MEAN CORPUSCULAR HGB CONC 33 % (32-36); MEAN CORPUSCULAR VOLUME 90 fL (79.0-98.0); RED BLOOD CELL COUNT(AUTO) 1.67 MIL/uL (4.2-6.2); WHITE BLOOD COUNT (AUTO) 17.1 K/uL (4.8-10.8)
[2017-06-02 19:32] LABS: CALCIUM 8.7 mg/dL (8.4-11.0); CREATININE 0.48 mg/dL (0.55-1.30); RED CELL DISTRIBUTION WIDTH 16.8 % (9.0-15.0)
[2017-06-02 19:33] LABS: PLATELET COUNT (AUTO) 624 K/uL (130-430)
[2017-06-02 19:36] LABS: HEMATOCRIT 14.9 % (36-48)
[2017-06-02 19:50] LABS: INR 0.9 (0.8-1.2); PROTHROMBIN TIME 9.6 SECS (9.5-12.5)
[2017-06-02 20:24] LABS: ATYPICAL LYMPHOCYTES % 0 % (0-0); BAND % (MANUAL) 2 % (0-6); BASOPHILS % (MANUAL) 0 % (0-2); EOSINOPHILS % (MANUAL) 0 % (0-7); LYMPHOCYTES % (MANUAL) 4 % (20-46); METAMYELOCYTES % 1 % (0-0); MONOCYTES % (MANUAL) 6 % (0-11); MYELOCYTES % 2 % (0-0)
[2017-06-02 21:11] VITALS: BP_SYST 134
[2017-06-02] MEDS ORDERED: MORPHINE 4 MG/ML INJ. SYRINGE IVP PRN (22:15)
[2017-06-02] MEDS ORDERED: DIPHENHYDRAMINE INJ 50 MG/ML VIAL IVP PRN (22:15)
[2017-06-02] MEDS ORDERED: DIPHENHYDRAMINE HCL 12.5 MG/5 ML UDC GT SCH (22:15)
[2017-06-02] MEDS ORDERED: ONDANSETRON HCL 4 MG/2 ML VIAL IVP PRN (22:15)
[2017-06-02] MEDS: MORPHINE 2 MG/ML INJ. SYRINGE IVP PRN (23:17)
[2017-06-02 23:38] VITALS: BP_SYST 128
[2017-06-03] MEDS: MORPHINE 2 MG/ML INJ. SYRINGE IVP PRN ×4 (00:16→17:34)
[2017-06-03] MEDS: NACL 0.9% 1,000 ML IV SCH ×2 (00:18→09:58)
[2017-06-03 01:37] LABS: BILIRUBIN,URINE NEGATIVE (NEGATIVE); BLOOD, URINE NEGATIVE (NEGATIVE); COLOR,URINE YELLOW (YELLOW); GLUCOSE,URINE NEGATIVE (NEGATIVE); KETONES,URINE NEGATIVE (NEGATIVE); LEUKOCYTE ESTERASE ,URINE NEGATIVE (NEGATIVE); NITRITE, URINE NEGATIVE (NEGATIVE); PH,URINE 7.5 (5.0-8.0); PROTEIN URINE NEGATIVE (NEGATIVE)
[2017-06-03 01:38] LABS: CLARITY/URINE HAZY (CLEAR)
[2017-06-03 03:57] VITALS: BP_SYST 137
[2017-06-03] MEDS: ACETAMINOPHEN/CODEINE 300 MG-30 MG TABLET PO PRN ×2 (06:43→11:59)
[2017-06-03 08:00] VITALS: BP_SYST 141
[2017-06-03] MEDS ORDERED: MILK OF MAGNESIA 30 ML UDC GT SCH (09:00)
[2017-06-03] MEDS: SUCRALFATE 1 GM/10 ML UDC PO SCH ×3 (09:00→17:31)
[2017-06-03] MEDS ORDERED: SOD FERRIC GLUC COMPLEX/SUC 125 MG in NS 100 ML IV SCH (11:00)
[2017-06-03 12:00] VITALS: BP_SYST 144
[2017-06-03 14:37] LABS: BASOPHILS # (AUTO) 0.1 K/uL (0.0-0.2); BASOPHILS % (AUTO) 0.4 % (0.0-2.0); EOSINOPHILS % (AUTO) 0.2 % (0.0-4.0); HEMATOCRIT 29.2 % (36-48); HEMOGLOBIN 9.5 g/dL (12.0-16.0); LYMPHOCYTES # (AUTO) 0.7 K/uL (1.0-5.5); MEAN CORPUSCULAR HEMOGLOBIN 30 pg (27-31); MEAN CORPUSCULAR HGB CONC 33 % (32-36); MEAN CORPUSCULAR VOLUME 90 fL (79.0-98.0); MONOCYTES # (AUTO) 0.8 K/uL (0.0-1.0); MONOCYTES % (AUTO) 4.5 % (1.7-9.3); NEUTROPHILS # (AUTO) 15.8 K/uL (1.8-7.7); NEUTROPHILS % (AUTO) 90.9 % (40.0-70.0); PLATELET COUNT (AUTO) 480 K/uL (130-430); RED BLOOD CELL COUNT(AUTO) 3.23 MIL/uL (4.2-6.2); RED CELL DISTRIBUTION WIDTH 15.3 % (9.0-15.0); WHITE BLOOD COUNT (AUTO) 17.4 K/uL (4.8-10.8)
[2017-06-03 14:53] LABS: ALBUMIN 1.9 g/dL (3.4-4.8); CALCIUM 8.8 mg/dL (8.4-11.0); CREATININE 0.53 mg/dL (0.55-1.30); TOTAL BILIRUBIN 0.2 mg/dL (0.0-1.0)
[2017-06-03 17:00] VITALS: BP_SYST 139
[2017-06-03 17:08] LABS: RETICULOCYTE COUNT 7.3 % (0.5-1.5)
[2017-06-03 18:45] VITALS: BP_SYST 136
== END 2017-06-03 20:53 | disposition home health service (06) | DRG 377 ==
LOC: SED 18:18 → SMU 21:00
PROVIDERS: ADMIT Internal Medicine; ATTEND Internal Medicine
PROC: 30233N1 Transfusion of Nonautologous Red Blood Cells into Peripheral Vein, Percutaneous Approach (ICD-10-PCS; principal; 2017-06-03)
DX: K92.2 Gastrointestinal hemorrhage, unspecified (principal); E43 Unspecified severe protein-calorie malnutrition; D62 Acute posthemorrhagic anemia; Z68.1 Body mass index [BMI] 19.9 or less, adult; G89.4 Chronic pain syndrome; Z66 Do not resuscitate; R13.10 Dysphagia, unspecified; Z79.899 Other long term (current) drug therapy; Z85.01 Personal history of malignant neoplasm of esophagus
CPT/HCPCS: 36415; 80048; 80053; 81003; 84484; 85007; 85025; 85027; 85044-TC; 85610-TC; 85730-TC; 86886; 86900; 86901; 86920; 87081; 93005; 96361; 96374; 99291; J2270; J2405; J2916; J7030; J7040; P9021

== ENCOUNTER 2017-06-07 22:38 | Inpatient (IN) | payer OTHER, MEDICARE ==
[~2017-06-07] VITALS: Ht 160 cm; Wt 46.7 kg
[~2017-06-07 22:38] MED LIST changes: +PANT40SU2; -PANT40SU2 GT; +SUCR1ORA2; -SUCR1ORA2 PO
[2017-06-07 22:42] VITALS: BP_SYST 142
[2017-06-07] MEDS ORDERED: NACL 0.9% 1,000 ML IV SCH (22:52)
[2017-06-07] MEDS ORDERED: PANTOPRAZOLE SODIUM 40 MG/VIAL (PROTONIX) IVP ONE (23:00)
[2017-06-07 23:23] LABS: WHITE BLOOD COUNT (AUTO) 23.7 K/uL (4.8-10.8)
[2017-06-07 23:32] LABS: MEAN CORPUSCULAR HEMOGLOBIN 30 pg (27-31)
[2017-06-07 23:33] LABS: CALCIUM 8.5 mg/dL (8.4-11.0); CREATININE 0.88 mg/dL (0.55-1.30)
[2017-06-07 23:35] LABS: RED BLOOD CELL COUNT(AUTO) 1.96 MIL/uL (4.2-6.2)
[2017-06-07 23:36] LABS: MEAN CORPUSCULAR HGB CONC 33 % (32-36); MEAN CORPUSCULAR VOLUME 91 fL (79.0-98.0); PLATELET COUNT (AUTO) 599 K/uL (130-430); RED CELL DISTRIBUTION WIDTH 15.6 % (9.0-15.0)
[2017-06-07 23:37] LABS: ALBUMIN 2.1 g/dL (3.4-4.8); HEMOGLOBIN 5.9 g/dL (12.0-16.0); INR 0.9 (0.8-1.2); PROTHROMBIN TIME 9.7 SECS (9.5-12.5); TOTAL BILIRUBIN 0.2 mg/dL (0.0-1.0)
[2017-06-07 23:38] LABS: HEMATOCRIT 17.8 % (36-48)
[2017-06-08] VITALS (8 sets, daily range): BP systolic 131–141
[2017-06-08 00:08] LABS: BAND % (MANUAL) 2 % (0-6); BASOPHILS % (MANUAL) 0 % (0-2); EOSINOPHILS % (MANUAL) 0 % (0-7); LYMPHOCYTES % (MANUAL) 5 % (20-46); MONOCYTES % (MANUAL) 3 % (0-11)
[2017-06-08 00:09] LABS: METAMYELOCYTES % 1 % (0-0)
[2017-06-08] MEDS ORDERED: DIPHENHYDRAMINE INJ 50 MG/ML VIAL IVP PRN ×2 (00:15→12:45)
[2017-06-08] MEDS ORDERED: ONDANSETRON HCL 4 MG/2 ML VIAL IVP PRN (00:15)
[2017-06-08] MEDS ORDERED: PANTOPRAZOLE SODIUM 40 MG in NS 50 ML IV SCH (00:15)
[2017-06-08] MEDS ORDERED: POTA8TAB4 PO (00:32)
[2017-06-08] MEDS ORDERED: MORP20SY PO (00:32)
[2017-06-08] MEDS ORDERED: TYC3 PO (00:32)
[2017-06-08] MEDS ORDERED: PANTOPRAZOLE SODIUM 40 MG/VIAL (PROTONIX) ONE ×2 (01:17→06:05)
[2017-06-08] MEDS: MORPHINE 4 MG/ML INJ. SYRINGE IVP PRN ×5 (01:42→18:31)
[2017-06-08] MEDS: SUCRALFATE 1 GM/10 ML UDC GT SCH ×4 (05:46→23:56)
[2017-06-08 08:48] LABS: BILIRUBIN,URINE NEGATIVE (NEGATIVE); BLOOD, URINE NEGATIVE (NEGATIVE); CLARITY/URINE HAZY (CLEAR); COLOR,URINE YELLOW (YELLOW); GLUCOSE,URINE NEGATIVE (NEGATIVE); KETONES,URINE NEGATIVE (NEGATIVE); LEUKOCYTE ESTERASE ,URINE NEGATIVE (NEGATIVE); NITRITE, URINE NEGATIVE (NEGATIVE); PROTEIN URINE TRACE (NEGATIVE)
[2017-06-08 08:56] LABS: BACTERIA,URINE MODERATE /HPF (None Seen); MUCUS,URINE 1+ /LPF (None Seen); RBC,URINE 0-3 /HPF (0-3); URINE AMORPHOUS URATE 2+ /HPF (None Seen); WBC,URINE 0-3 /HPF (0-3)
[2017-06-08] MEDS ORDERED: cefTRIAXone 1 GM VIAL IV SCH (09:00)
[2017-06-08] MEDS: CEFTRIAXONE SOD 1 GM/ D5W 50 ML IV SCH ×2 (09:44)
[2017-06-08] MEDS: PANTOPRAZOLE SODIUM 40 MG in NS 50 ML IV SCH ×3 (11:32→22:32)
[2017-06-08] MEDS ORDERED: NA PHOS,M-B/NA PHOS,DI-BA 118 ML (FLEET ENEMA) RC ONE (12:45)
[2017-06-08] MEDS ORDERED: ACETAMINOPHEN WITH CODEINE 12.5 ML UDC PO PRN (12:45)
[2017-06-08] MEDS ORDERED: LR 500 ML IV ONE (13:00)
[2017-06-08] MEDS: MINERAL OIL 133 ML ENEMA RC ONE ×2 (14:29→18:28)
[2017-06-08] MEDS ORDERED: MINERAL OIL 30 ML UDC GT ONE (15:30)
[2017-06-08 18:22] LABS: BASOPHILS % (AUTO) 0.2 % (0.0-2.0); EOSINOPHILS % (AUTO) 0.1 % (0.0-4.0); HEMATOCRIT 29.2 % (36-48); HEMOGLOBIN 9.9 g/dL (12.0-16.0); LYMPHOCYTES # (AUTO) 0.5 K/uL (1.0-5.5); LYMPHOCYTES % (AUTO) 1.9 % (20.5-51.5); MEAN CORPUSCULAR HEMOGLOBIN 30 pg (27-31); MEAN CORPUSCULAR HGB CONC 34 % (32-36); MEAN CORPUSCULAR VOLUME 89 fL (79.0-98.0); MONOCYTES # (AUTO) 0.8 K/uL (0.0-1.0); MONOCYTES % (AUTO) 3.3 % (1.7-9.3); NEUTROPHILS # (AUTO) 22.7 K/uL (1.8-7.7); NEUTROPHILS % (AUTO) 94.5 % (40.0-70.0); PLATELET COUNT (AUTO) 433 K/uL (130-430); RED BLOOD CELL COUNT(AUTO) 3.28 MIL/uL (4.2-6.2); RED CELL DISTRIBUTION WIDTH 14.7 % (9.0-15.0)
[2017-06-08 18:39] LABS: CALCIUM 7.7 mg/dL (8.4-11.0); CREATININE 0.66 mg/dL (0.55-1.30); POTASSIUM 3.5 mmol/L (3.5-5.1)
[2017-06-09] MEDS: PANTOPRAZOLE SODIUM 40 MG in NS 50 ML IV SCH ×4 (03:30→17:23)
[2017-06-09 04:59] VITALS: BP_SYST 138
[2017-06-09] MEDS: MORPHINE 4 MG/ML INJ. SYRINGE IVP PRN ×3 (06:06→16:47)
[2017-06-09] MEDS: SUCRALFATE 1 GM/10 ML UDC GT SCH ×3 (06:06→18:00)
[2017-06-09 07:13] LABS: BASOPHILS % (AUTO) 0.2 % (0.0-2.0); EOSINOPHILS % (AUTO) 0.1 % (0.0-4.0); HEMATOCRIT 27.8 % (36-48); HEMOGLOBIN 9.4 g/dL (12.0-16.0); LYMPHOCYTES # (AUTO) 0.5 K/uL (1.0-5.5); LYMPHOCYTES % (AUTO) 2.3 % (20.5-51.5); MEAN CORPUSCULAR HEMOGLOBIN 30 pg (27-31); MEAN CORPUSCULAR HGB CONC 34 % (32-36); MEAN CORPUSCULAR VOLUME 89 fL (79.0-98.0); MONOCYTES % (AUTO) 4.4 % (1.7-9.3); PLATELET COUNT (AUTO) 440 K/uL (130-430); RED BLOOD CELL COUNT(AUTO) 3.13 MIL/uL (4.2-6.2); RED CELL DISTRIBUTION WIDTH 14.6 % (9.0-15.0)
[2017-06-09 07:35] LABS: WHITE BLOOD COUNT (AUTO) 23.5 K/uL (4.8-10.8)
[2017-06-09 08:00] VITALS: BP_SYST 145
[2017-06-09 08:25] LABS: ALBUMIN 1.8 g/dL (3.4-4.8); CREATININE 0.67 mg/dL (0.55-1.30); TOTAL BILIRUBIN 0.4 mg/dL (0.0-1.0)
[2017-06-09] MEDS: CEFTRIAXONE SOD 1 GM/ D5W 50 ML IV SCH ×4 (08:28→08:30)
[2017-06-09 09:01] LABS: POTASSIUM 2.7 mmol/L (3.5-5.1)
[2017-06-09] MEDS ORDERED: POTASSIUM CHLORIDE 20 MEQ/PKT PACKET GT ONE ×2 (09:45→12:00)
[2017-06-09] MEDS ORDERED: MINERAL OIL 133 ML ENEMA RC ONE (12:00)
[2017-06-09] MEDS ORDERED: NA PHOS,M-B/NA PHOS,DI-BA 118 ML (FLEET ENEMA) RC ONE (12:00)
[2017-06-09 12:15] VITALS: BP_SYST 148
[2017-06-09 15:06] LABS: HEMATOCRIT 29.3 % (36-48); HEMOGLOBIN 9.8 g/dL (12.0-16.0); MEAN CORPUSCULAR HEMOGLOBIN 30 pg (27-31); MEAN CORPUSCULAR HGB CONC 34 % (32-36); MEAN CORPUSCULAR VOLUME 90 fL (79.0-98.0); PLATELET COUNT (AUTO) 468 K/uL (130-430); RED BLOOD CELL COUNT(AUTO) 3.25 MIL/uL (4.2-6.2); RED CELL DISTRIBUTION WIDTH 14.8 % (9.0-15.0)
[2017-06-09 15:18] LABS: CALCIUM 7.7 mg/dL (8.4-11.0); CREATININE 0.69 mg/dL (0.55-1.30); POTASSIUM 4.9 mmol/L (3.5-5.1)
[2017-06-09 15:26] VITALS: BP_SYST 139
[2017-06-09 15:34] LABS: ATYPICAL LYMPHOCYTES % 0 % (0-0); BAND % (MANUAL) 1 % (0-6); BASOPHILS % (MANUAL) 0 % (0-2); EOSINOPHILS % (MANUAL) 0 % (0-7); LYMPHOCYTES % (MANUAL) 2 % (20-46); MONOCYTES % (MANUAL) 4 % (0-11)
[2017-06-09 17:33] VITALS: BP_SYST 139
[2017-06-09 19:52] VITALS: BP_SYST 140
== END 2017-06-10 00:18 | disposition home health service (06) | DRG 393 ==
LOC: SED 22:38 → SMU 06-08 00:14
PROVIDERS: ADMIT Internal Medicine; ATTEND Internal Medicine
PROC: 30233N1 Transfusion of Nonautologous Red Blood Cells into Peripheral Vein, Percutaneous Approach (ICD-10-PCS; 2017-06-08)
PROC: 0D20XUZ Change Feeding Device in Upper Intestinal Tract, External Approach (ICD-10-PCS; principal; 2017-06-09)
DX: K94.23 Gastrostomy malfunction (principal); E43 Unspecified severe protein-calorie malnutrition; C15.9 Malignant neoplasm of esophagus, unspecified; Z68.1 Body mass index [BMI] 19.9 or less, adult; D62 Acute posthemorrhagic anemia; R33.9 Retention of urine, unspecified; G89.4 Chronic pain syndrome; E87.6 Hypokalemia; Y83.3 Surgical operation with formation of external stoma as the cause of abnormal reaction of the patient, or of later complication, without mention of misadventure at the time of the procedure; Y92.89 Other specified places as the place of occurrence of the external cause; Z79.899 Other long term (current) drug therapy
CPT/HCPCS: 36415; 80048; 80053; 81000-TC; 83735-TC; 85007; 85025; 85027; 85610-TC; 85730-TC; 86886; 86900; 86901; 86920; 87081; 93005; 96361; 96374; 99291; C9113; J0696; J2270; J7030; J7040; J7060; J7120; P9021

== ENCOUNTER 2017-06-10 11:12 | Emergency (ER) | payer OTHER, MEDICARE ==
[~2017-06-10] VITALS: Ht 160 cm; Wt 46.7 kg
[~2017-06-10 11:12] MED LIST changes: -MAGN400O4 GT; +MORP20SY PO; +POTA8TAB4 PO; +TYC3 PO; -[UNRECOGNIZED DRUG - CODE] GT
[2017-06-10 11:38] VITALS: BP_SYST 146
[2017-06-10 12:34] LABS: BILIRUBIN,URINE NEGATIVE (NEGATIVE); BLOOD, URINE NEGATIVE (NEGATIVE); CLARITY/URINE CLEAR (CLEAR); COLOR,URINE YELLOW (YELLOW); GLUCOSE,URINE NEGATIVE (NEGATIVE); KETONES,URINE NEGATIVE (NEGATIVE); LEUKOCYTE ESTERASE ,URINE NEGATIVE (NEGATIVE); NITRITE, URINE NEGATIVE (NEGATIVE); PROTEIN URINE TRACE (NEGATIVE)
[2017-06-10 12:39] LABS: CREATININE 0.44 mg/dL (0.55-1.30); POTASSIUM 3.6 mmol/L (3.5-5.1)
[2017-06-10 12:40] LABS: BASOPHILS % (AUTO) 0.1 % (0.0-2.0); EOSINOPHILS # (AUTO) 0.1 K/uL (0.0-0.4); EOSINOPHILS % (AUTO) 0.4 % (0.0-4.0); HEMOGLOBIN 8.1 g/dL (12.0-16.0); LYMPHOCYTES # (AUTO) 0.4 K/uL (1.0-5.5); LYMPHOCYTES % (AUTO) 1.8 % (20.5-51.5); MEAN CORPUSCULAR HEMOGLOBIN 30 pg (27-31); MEAN CORPUSCULAR HGB CONC 34 % (32-36); MEAN CORPUSCULAR VOLUME 89 fL (79.0-98.0); MONOCYTES # (AUTO) 1.2 K/uL (0.0-1.0); MONOCYTES % (AUTO) 5.9 % (1.7-9.3); NEUTROPHILS # (AUTO) 18.2 K/uL (1.8-7.7); NEUTROPHILS % (AUTO) 91.8 % (40.0-70.0); PLATELET COUNT (AUTO) 448 K/uL (130-430); RED CELL DISTRIBUTION WIDTH 14.5 % (9.0-15.0); WHITE BLOOD COUNT (AUTO) 19.9 K/uL (4.8-10.8)
[2017-06-10 12:44] LABS: BACTERIA,URINE RARE /HPF (None Seen); MUCUS,URINE None Seen /LPF (None Seen); RBC,URINE NONE SEEN /HPF (0-3); WBC,URINE NONE SEEN /HPF (0-3)
[2017-06-10 12:44] LABS: ALBUMIN 1.8 g/dL (3.4-4.8); TOTAL BILIRUBIN 0.3 mg/dL (0.0-1.0)
[2017-06-10 13:38] VITALS: BP_SYST 142
== END 2017-06-10 13:38 | disposition home or self-care (01) ==
LOC: SED 11:12
DX: R33.9 Retention of urine, unspecified (principal); C15.9 Malignant neoplasm of esophagus, unspecified; Z86.2 Personal history of diseases of the blood and blood-forming organs and certain disorders involving the immune mechanism
CPT/HCPCS: 36415; 80053; 81000-TC; 85025; 99284